=== PATIENT | female | born 1960 | race Caucasian/White ===

== ENCOUNTER → 2018-07-14 14:03 | Outpatient (CLI) | payer OTHER, SELFPAY ==
--- NOTE | 2018-07-14 | DI.RAD.S_ITS ---
PROCEDURE: XR LUMBAR SPINE MIN 4V INDICATIONS: STENOSIS OF LUMBAR REGION TECHNIQUE: 5 views of the lumbar spine acquired. COMPARISON: 07/08/2018. FINDINGS: Bones: 5 nonrib-bearing vertebrae are present. There are small riblets on the T12 vertebral body. There is anterolisthesis of L3-4 (4 mm) which minimally progressed since on flexion views where it measures 7 mm. Finding is stable on extension views. L4-5 pedicle screw fixation with intervertebral body disc spacer. Hardware is radiographically intact. No vertebral body compression fractures. No suspicious bony lesions. Soft tissues: Overlying bowel gas pattern is normal. No suspicious soft tissue calcifications. Barium within the colon. Flexion/extension: Anterolisthesis of L3-4 measuring 4 mm which progresses to measure 7 mm on flexion views. IMPRESSION: 1. Anterolisthesis of L3-4 measures 4 mm in neutral position and 7 mm on flexion views. It is stable on extension views. 2. Theodore and screw fixation of L4-5. Dictated by: Jose Harden M.D. on 07/14/2018 at 15:57 Approved by: Jose Harden M.D. on 07/14/2018 at 16:02
== END ==
PROVIDERS: PCP Family Medicine; Visit Provider Orthopaedic Surgery Orthopaedic Surgery of the Spine
DX: M48.061 Spinal stenosis, lumbar region without neurogenic claudication (principal); M43.16 Spondylolisthesis, lumbar region; Z98.1 Arthrodesis status
CPT/HCPCS: 72110

== ENCOUNTER → 2018-11-17 09:59 | Outpatient (CLI) | payer OTHER, SELFPAY ==
[2018-11-17 10:49] LABS: Hematocrit 43.3 % (36-46); Hemoglobin 14.7 g/dL (12.0-16.0); Mean Corpuscular HGB Conc 33.9 % (30-36); Mean Corpuscular Hemoglobin 32.4 PG (26-34); Mean Corpuscular Volume 95.5 fL (80-100); Platelet Count 280 X10^3/uL (150-400); Red Blood Cell Count 4.54 X10^6/uL (4.0-5.2); Red Cell Distribution Width 13.2 % (11.6-14.8); White Blood Cell Count 4.3 X10^3/uL (4.5-11.0)
[2018-11-17 11:31] LABS: Blood Urea Nitrogen 15 mg/dL (7-17); Calcium 10.3 mg/dL (8.4-10.2); Carbon Dioxide 30 mmol/L (22-32); Chloride 97 mmol/L (98-107); Estimated Glomerular Filt Rate > 60.0 mL/min (>60); Glucose 107 mg/dL (70-100); HEMOLYSIS < 15 (0-50); Potassium 4.3 mmol/L (3.4-5.1); Sodium 139 mmol/L (137-145)
== END ==
PROVIDERS: PCP Family Medicine; Visit Provider Orthopaedic Surgery Orthopaedic Surgery of the Spine
DX: Z01.818 Encounter for other preprocedural examination (principal)
CPT/HCPCS: 36415; 80048; 85027; 93005

== ENCOUNTER 2018-12-08 06:15 | Inpatient (IN) | payer OTHER, SELFPAY ==
[2018-11-23 08:51] VITALS: BMI 20.9
[2018-12-08] VITALS (16 sets, daily range): BP systolic 104–141; BP diastolic 52–72; PULSE 62–91; RESP 8–18; TEMP 36.3–37.2; O2SAT 97–100; BMI 20.9
--- NOTE | 2018-12-08 | DI.RAD.S_ITS ---
PROCEDURE: XR LUMBAR SPINE 2-3V INDICATIONS: L3-4 TLIF TECHNIQUE: Tube views of the lumbar spine were acquired. COMPARISON: [facility], [facility], XR LUMBAR SPINE MIN 4V, 07/14/2018, 13:47. [facility], [facility], L-SPINE 2-3 VIEWS, 10/26/2017, 17:10. FINDINGS: Bones: Prior spine surgery had involved two-level fusion at L4-5 with an interbody disc cage prosthesis at L4-5. The current study shows extension of posterior fusion by transverse pedicle screws and vertical fixation rods to include now also the L3-4 level. A and L3-4 interbody disc cage prosthesis is placed, positioning appears normal. Soft tissues: Overlying bowel gas pattern is normal. No suspicious soft tissue calcifications. IMPRESSION: Normal postoperative alignment with extension of posterior fusion procedure from the past, now to extend to include L3-L5. Interbody disc prosthesis, cage type, appear to be normal in position at L3-4 and L4-5. Dictated by: Simone Harris M.D. on 12/08/2018 at 11:23 Approved by: Simone Harris M.D. on 12/08/2018 at 11:25
[2018-12-08] MEDS: LACTATED RINGERS 1,000 ML 42 ML IV ×2 (07:03→10:05)
[2018-12-08] MEDS: ACETAMINOPHEN 325 MG TABLET 975 MG PO (07:08)
[2018-12-08] MEDS: GABAPENTIN 300 MG CAPSULE PO ×2 (07:15→19:30)
--- NOTE | 2018-12-08 07:39 | PM.PREOP ---
Pre-operative Note Interval Note History & Physical reviewed/Exam performed by Physician: Yes Changes to H&P: No
[2018-12-08] MEDS: CEFAZOLIN 2 GM/100 ML FROZ.PIGGY IV (07:54)
--- NOTE | 2018-12-08 08:19 | SUR.OPER ---
Prone on spine table, head in foam head support, padded chest and pelvic supports, gel pad at knees, lower legs supported by pillows; nipples, genitalia and toes free of pressure, arms secured on foam padded arm boards at <90 degrees abduction. Tape over blanket at thigh secured to table.
[2018-12-08] MEDS: BUPIVACAINE 0.25% W/ EPI VIAL 30 ML INJ (08:26)
[2018-12-08] MEDS: BUPIVACAINE LIPOSOME 266 MG/20 ML VIAL INJ (08:28)
--- NOTE | 2018-12-08 10:47 | P.OP_ITS ---
Operative Date/Time/Diagnoses Date of procedure: 12/08/18 Time of procedure: 08:01 Pre-op diagnosis: 1. L3-4 spondylolisthesis 2. Hx of L4-5 fusion with pseudoarthrosis 3. L3-4, L4-5 spinal stenosis Post-op diagnosis: same Procedure & Clinicians Procedure: 1. L3-4 Postero-lateral and posterior interbody fusion 2. L3-4 interbody cage placement. 3. L3-4 decompressive laminectomy with bilateral facetecomies 4. L3-4 L4-5 Posterior segmental instrumentation 5. L4-5 posterior non-segmental hardware removal 6. L4-5 exploration of fusion with right hemilaminectomy 7. L4-5 posterolateral fusion 8. Hamden of bone marrow from iliac crest 9. Utilization of microsurgical technique and operating microscope Same procedure as scheduled: Yes Indications: Patient has been having chronic back pain and worsening lumbar radiculopathy. She had a history of lumbar fusion at L4-5 and was doing well for over 1 year. She has been having progressively worsening back pain and radiating pain down her legs. Patient failed multiple conservative management with worsening pain weakness and numbness in her lower extremity. Patient has been having difficulty performing activity of daily living. After discussing risks benefits of treatment options, patient elected proceed with surgery. Surgeon: Brooke Kwong Prefabricated Houses Trimmer: Mile Becker Click Yes if Unassisted: No Anesthesia Type: General Operative Notes Closure Type: primary Specimen(s): none sent Implants & Drains: Globus revolve screws, Rise cages Applied: catheter Estimated Blood Loss (mL): 50 Blood products transfused: none Procedure in detail: Patient was seen in the preoperative area. Risks and benefits of the surgery was discussed with the patient. Informed consent was obtained from the patient and placed in the chart. Surgical site was marked. Patient was taken to the operative room. General anesthesia was administered. Prophylactic antibiotic was given to the patient less than 30 min before the incision was made. Patient was placed into a prone position on the Deion table. Patient's back was then prepped and draped in the sterile fashion. Time- out was performed at this time. Using patient's previous scar incision was made over the L3-4 L4-5 interval on the right side. Fascia was incised in line with skin incision. Patient's previously placed hardware over the L4-5 level was identified by dissecting down to the level the hardware using a Bovie and a Jackson. The locking caps which was removed using globus screwdriver. The locking adrian was then removed from the tulips of the pedicle screws using a Thuy. The pedicle screws were then removed using the screwdriver. The screws were found to have good purchase. The Globus and MARS retractors was then placed into the wound and docked onto the L3 lamina using C-arm guidance. Using microsurgical technique and operating microscope a laminectomy facetectomy was performed by removing the L3 lamina and the L3-4 facet. The disc space at L3-4 level was identified next. And a total diskectomy was performed at L3-4 level. The endplates were decorticated using a rasp and shaver. The total diskectomy and decortication was performed at L3-4 level in order to to accomplish a L3-4 fusion. The local bone from the laminectomy and facetectomy was saved for local bone grafting. After the total diskectomy and decortication was completed, Globus viacell bone graft material was combined with local bone that was harvested earlier. At this time, a separate skin is incision was made over the iliac crest. A Jamshidi needle was inserted into the iliac crest through a separate skin incision. 5 cc of bone marrow aspiration was obtained through the separate skin incision using a Jamshidi needle from the iliac crest. The bone marrow aspiration was combined with local bone and the Bio4 and DBM bone grafting material. The bone grafting material was placed into the L3-4 interbody space along with a expandable cage. The cage was expanded to its maximum height using the torque limiting screwdriver. At this time a mirror image incision was made on the left side. The fascia was incised in line with the skin incision. Patient's previously placed hardware on the left side was then removed in the same fashion as it was on the right side. The hardware was also found to have good purchase. The fusion mass on the left side was exposed by performing a hemilaminectomy at L4-5 level. The hemilaminectomy was performed using the Kerrison rongeur to undercut the lamina as well removing additional epidural scar tissue for purpose of decompressing the epidural space. The fusion mass was explored and was found have visible motion indicating pseudoarthrosis. Globus MARS retractor was inserted and docked onto the L3-4 L4-5 posterolateral gutter. Using the power drill, posterior-lateral decortication was performed at L3-4 L4-5 level until bleeding cortical bone was identified. The remaining bone grafting material was placed into the L3-4 L4-5 posterior lateral gutter he order to accomplish posterolateral fusion at the L3-4 L4-5 level. Using the double C-arm technique, pedicle screws were placed into the L3, L4 and L5 pedicles bilaterally. This was done by placing the Jamshidi needle into the pedicles, then placing the guidewires over the Jamshidi needle, and finally placing the cannulated screws over the guidewires bilaterally. After the pedicle screws were placed, 2 titanium rods was locked into the heads of the pedicle screws using locking caps and torque limiting screwdriver. After all the hardware was placed, and confirmed with AP and lateral C-arm imaging, the wound was then irrigated with sterile normal saline and packed with Ray-Thierry gauze for 3 min to accomplish hemostasis. After the gauze was removed the deep fascia was closed with #1 Vicryl suture. The subcutaneous layer was closed with 2-0 Vicryl. The skin was closed with skin domingo. Patient tolerated the procedure well. There were no complications. Complications: none Condition: stable Disposition: PACU Plan for aftercare: Admit to inpatient hospital
[2018-12-08] MEDS: HYDROMORPHONE 2 MG INJ 0.5 MG IV ×2 (11:02→11:16)
[2018-12-08] MEDS: LORazepam 2 MG/ML SYRINGE 0.25 MG IV ×2 (11:08→11:19)
--- NOTE | 2018-12-08 12:03 | SUR.PHASEI ---
Patient transferred to IP room 209 via bed. \vital signs stable on arrival. o2 2 liters 100% sat dressing dry and intact. Pain level 7/10. denied any nausea. bedside report given to addy hdez rn.
[2018-12-08] MEDS: HYDROMORPHONE 2 MG TABLET PO ×3 (13:53→20:45)
[2018-12-08] MEDS: SODIUM CHLORIDE 0.9% 1,000 ML 100 ML IV ×2 (13:53→20:49)
--- NOTE | 2018-12-08 15:01 | PC.NURSE ---
Pt to floor around 1155. She is groggy but easily awakens . Pt is sensitive to iv narcotics and has sensitivities to morphine, oxycodone and percocet. She had orders for both of these, they have been d/cd and Dilaudid ordered for discomfort. Dressing to lower back is cdi. Pt is on NS at 100cc/hr. She is visiting with her . PT states that when given morphine or oxycodone she has severe emesis. Denies numbness or tingling to extremities. Dilaudid po helpful for discomfort, ice pack given and pt resting.
--- NOTE | 2018-12-08 15:20 | PT.IPTN ---
Current Diagnoses Spondylolisthesis, lumbar region (12/08/18) Other spondylosis with radiculopathy, lumbar region (12/08/18) Spinal stenosis, lumbar region without neurogenic claudication (12/08/18) Arthrodesis status (12/08/18) Surgery Performed Operation Date: 12/08/18 07:45 Actual Procedures p L3-4 TLIF/ L4-5 HWR Exploration of fusion, repeat laminectomy, reinsertion of hardware, L3-4, L4-5 PSF(Not Applicable) - Brooke Kwong MD Physical Therapy Treatment Note M3 PT-IP Subjective Start: 12/08/18 15:40 Freq: NEEDED Status: Active Protocol: Document 12/08/18 15:20 RCC (Rec: 12/08/18 15:42 RCC [id number]) Subjective Physical Therapy Visit Type Type Cancellation Notes checked on pt to initiate PT, pt difficult to arouse, lethargic- did not arouse to name. Will attempt PT at a later time today or tomorrow, pt is not appropriate at this time for PT evaluation.
[2018-12-08] MEDS: CEFAZOLIN 1 GM/50 ML FROZ.PIGGY IV ×2 (16:52→23:55)
[2018-12-08] MEDS: hydrOXYzine pamoate 25 MG CAPSULE PO (19:30)
[2018-12-08] MEDS: ACETAMINOPHEN 325 MG TABLET 650 MG PO (19:30)
[2018-12-08] MEDS: DOCUSATE 100 MG CAPSULE PO (19:30)
[2018-12-09 00:10] VITALS: BP 106/59; PULSE 89; RESP 16; TEMP 36.8; O2SAT 97
[2018-12-09 03:39] VITALS: BP 111/49; PULSE 89; RESP 16; TEMP 36.6; O2SAT 100
[2018-12-09] MEDS: HYDROMORPHONE 2 MG TABLET PO ×5 (03:41→22:02)
[2018-12-09 06:13] LABS: Hematocrit 38.2 % (36-46)
[2018-12-09] MEDS: ACETAMINOPHEN 325 MG TABLET 650 MG PO (07:29)
[2018-12-09] MEDS: DOCUSATE 100 MG CAPSULE PO ×2 (07:30→22:02)
[2018-12-09] MEDS: GABAPENTIN 300 MG CAPSULE PO ×2 (07:31→13:53)
[2018-12-09 08:00] VITALS: BP 127/65; PULSE 82; RESP 16; TEMP 37.1; O2SAT 100
--- NOTE | 2018-12-09 08:23 | PM.PNPO.1 ---
Subjective Date Patient Seen: 12/09/18 Time Patient Seen: 08:23 Interval history: Hospital day 2, postop day 1 following L3-4 laminectomy, cage, posterior fusion; L4-5 HWR, right hemilaminectomy, posterior fusion; L3-4, L4-5 posterior instrumented fusion by Dr. Kwong. Patient complaining of low back pain. States her right leg symptoms were present preoperatively have improved. She is using Dilaudid 2 mg for pain. She has not had any physical therapy yet. Palacio catheter in place. Exam Vital Signs (past 8 hours): - 12/09/18 03:39 Temperature 97.8 F Pulse Rate 89 Respiratory Rate 16 Blood Pressure 111/49 L Pulse Oximetry 100 Oxygen Delivery Method Nasal Cannula Oxygen Flow Rate 0 Narrative Exam Narrative: Alert, oriented no acute distress resting in bed. Back. Dressing is dry without drainage or inflammation. Legs. No calf pain or swelling. Pulses symmetrical. Good sensation to touch to lower legs symmetrical. Good strength on foot dorsiflexion plantar flexion. Objective Labs Result Diagrams: 12/09/18 05:48 Labs: Laboratory Results - last 24 hr 12/09/18 05:48 Hgb 13.0 Hct 38.2 Assessment & Plan Post-op Postoperative Procedures Operation Date: 12/08/18 07:45 Actual Procedures Side Surgeon p L3-4 TLIF/ L4-5 HWR Exploration of fusion, repeat laminectomy, reinsertion of hardware, L3-4, L4-5 PSF Not Applicable Brooke Kwong MD Plan: Patient will begin working with physical therapy today. Anticipate DC Palacio catheter when she is more active. Will observe for further improvement today. Anticipate discharge to home tomorrow if she is cleared by PT. Quality VTE Deep Vein Thrombosis/Pulmonary Embolism Present on Admission: No
--- NOTE | 2018-12-09 08:26 | P.PN_ITS ---
Subjective Date Patient Seen: 12/09/18 Time Patient Seen: 08:23 Interval history: Hospital day 2, postop day 1 following L3-4 laminectomy, cage , posterior fusion; L4-5 HWR, right hemilaminectomy, posterior fusion; L3-4, L4- 5 posterior instrumented fusion by Dr. Kwong. Patient complaining of low back pain. States her right leg symptoms were present preoperatively have improved. She is using Dilaudid 2 mg for pain. She has not had any physical therapy yet. Palacio catheter in place. Exam Vital Signs (past 8 hours): - 12/09/18 03:39 Temperature 97.8 F Pulse Rate 89 Respiratory Rate 16 Blood Pressure 111/49 L Pulse Oximetry 100 Oxygen Delivery Method Nasal Cannula Oxygen Flow Rate 0 Narrative Exam Narrative: Alert, oriented no acute distress resting in bed. Back. Dressing is dry without drainage or inflammation. Legs. No calf pain or swelling. Pulses symmetrical. Good sensation to touch to lower legs symmetrical. Good strength on foot dorsiflexion plantar flexion. Objective Labs Result Diagrams: 12/09/18 05:48 Labs: Laboratory Results - last 24 hr 12/09/18 05:48 Hgb 13.0 Hct 38.2 Assessment & Plan Post-op Postoperative Procedures Operation Date: 12/08/18 07:45 Actual Procedures Side Surgeon p L3-4 TLIF/ L4-5 HWR Exploration of fusion, repeat laminectomy, reinsertion of hardware, L3-4, L4-5 PSF Not Applicable Brooke Kwong MD Plan: Patient will begin working with physical therapy today. Anticipate DC Palacio catheter when she is more active. Will observe for further improvement today. Anticipate discharge to home tomorrow if she is cleared by PT. Quality VTE Deep Vein Thrombosis/Pulmonary Embolism Present on Admission: No
--- NOTE | 2018-12-09 10:28 | PT.IIE ---
Current Diagnoses Spondylolisthesis, lumbar region (12/08/18) Other spondylosis with radiculopathy, lumbar region (12/08/18) Spinal stenosis, lumbar region without neurogenic claudication (12/08/18) Arthrodesis status (12/08/18) Surgery Performed Operation Date: 12/08/18 07:45 Actual Procedures p L3-4 TLIF/ L4-5 HWR Exploration of fusion, repeat laminectomy, reinsertion of hardware, L3-4, L4-5 PSF(Not Applicable) - Brooke Kwong MD Surgical History (Last Updated 11/23/18 @ 09:02 by Kallie Castillo RN) History of bunionectomy of both great toes (Acute) History of lumbar spinal fusion (Acute 10/26/17) Hx of laminectomy (Acute) Hx of shoulder surgery (Acute) S/P bilateral foot surgery (Acute) Medical History (Last Updated 11/23/18 @ 09:30 by Kallie Castillo RN) Asthma (Acute) Fecal incontinence alternating with constipation (Acute) Former smoker (Acute) H/O: hysterectomy (Acute) Migraines (Acute) Numbness and tingling (Acute) Pneumonia (Acute) Physical Therapy Inpatient Evaluation/Re-Eval M1 PT/OT-IP Prior Functional Status Start: 12/08/18 15:40 Freq: NEEDED Status: Active Protocol: Document 12/09/18 10:28 AB (Rec: 12/09/18 13:17 AB [id number]) Medical Review Prior Functional Status Medical History Reviewed Yes Communication able to make needs known Mobility and Gait pt stated that she is independent with all mobilities and ambulation without AD Social History Household Members spouse Living Arrangements House Number of Floors (Floors) Two Floors Number of Stairs To Enter/Railing? has no steps to enter 13 steps with R rail to get to bedroom level has 2 steps without rails to get to he sunken living room Home Environment Standard Height Toilet Tub/Shower Home Equipment Front Wheel Walker Raised Toilet Seat w/Armrests Tub Transfer Punchboard Stuffer Held Shower Long Handled [employer] Additional Social History Comment pt stated that she works from home friend will bring pt a SPC pt also has a craftmatic bed ( adjustable head and foot of bed) M2 PT-IP Current Condition Start: 12/08/18 15:40 Freq: NEEDED Status: Active Protocol: Document 12/09/18 10:28 AB (Rec: 12/09/18 13:17 AB [id number]) Physical Therapy Current Condition Current Condition Evaluation Date 12/09/18 Treatment Diagnosis s/p L3-4, L4-5 fusion, lami; difficulty in walking Onset Date 12/08/18 Precautions Lumbar Precautions Log Roll No Twisting Limit Bending Lifting Restriction of 10 lbs Gait Belt above Incisional Area M3 PT-IP Subjective Start: 12/08/18 15:40 Freq: NEEDED Status: Active Protocol: Document 12/09/18 10:28 AB (Rec: 12/09/18 13:17 AB [id number]) Subjective Physical Therapy Visit Type Type Initial Evaluation Visit Start Time 10:28 Visit Stop Time 11:07 Total Visit Minutes 39 Number of SOLID STATE TESTER Visits 0 Physical Therapy Visit Comments Patient Comments pt agreeable to get up Therapy Pain Assessment Pain When Pain Assessed At Rest Pain Present Pain Present Pain Reported Location Back Intensity 5 Scale Used Numeric (1 - 10) M4 PT-IP Mobility and Gait Start: 12/08/18 15:40 Freq: NEEDED Status: Active Protocol: Document 12/09/18 10:28 AB (Rec: 12/09/18 13:17 AB [id number]) PT-Bed Mobility Assessment Rolling Type of Rolling Log Rolling Level of Assist Standby Assistance Supine to Sit Supine to Sit Standby Assistance Scooting Scooting to Edge of Bed Standby Assistance PT-Transfer Assessment Sit to and From Stand Sit to and from Stand Contact Guard Assistance Use of Upper Extremities Equipment Transfer Assistive Device Gait Belt Front Wheeled Walker Orthotic/Prosthetic Devices or Brace: No Transfers Transfer Destination Chair Transfer Technique Stand Step Pivot Transfer Ability Level of Assist Contact Guard Assistance Comments Mobility Comments pt educated on sit to stand. completed sit <>stand x 3 reps CGA and cues for technqiue and safety. spouse present during PT session. Gait Assessment Gait Gait Assistance Required: Contact Guard Assist Distance (Feet) 40 Able to Maintain Weight Bearing Status Yes During Gait Assistive Devices Assistive Device Front Wheeled Walker Orthotic/Prosthetic Devices or Brace: No Gait Deviations General Gait Pattern Decreased Stride Length Decreased Feet Clearance Factors Limiting Gait Function Factors Limiting Gait Function Decreased Activity Tolerance Decreased Strength Limited Range of Motion Pain Poor Balance Poor Safety Awareness PT-Balance Assessment Sitting Balance and Reactions Static Sitting Balance Ability Good Dynamic Sitting Balance Ability Good Standing Balance and Reactions Static Standing Balance Ability Fair Dynamic Standing Balance Ability Fair Device Used FWW M5 PT-IP Objective Assessments Start: 12/08/18 15:40 Freq: NEEDED Status: Active Protocol: Document 12/09/18 10:28 AB (Rec: 12/09/18 13:17 AB [id number]) Orientation Orientation/Cognition Level of Alertness Alert Orientation Name Age Birthday Month Date Year Day of Week Place Situation Safety Awareness Understands Safety Issues Memory Description No Deficits Noted Gross Range of Motion Lower Extremity ROM Assessment Within Functional Limits Strength Lower Extremity Strength Assessment Bilaterally Impaired Comments Strength Comments LLE: 4/5 RLE: 4-/5 Coordination Assessment Gross Coordination Gross Coordination WNL Sensation Assessment Sensation Gross Sensation WNL Muscle Tone Muscle Tone WNL Yes M6 PT-IP Treatment Start: 12/08/18 15:40 Freq: NEEDED Status: Active Protocol: Document 12/09/18 10:28 AB (Rec: 12/09/18 13:17 AB [id number]) Physical Therapy Treatment Education Education Provided Precautions Post-Op Packet Safety M7 PT-IP Assessment and Plan Start: 12/08/18 15:40 Freq: NEEDED Status: Active Protocol: Document 12/09/18 10:28 AB (Rec: 12/09/18 13:17 AB [id number]) PT Summary Assessment and Plan Potential Rehabilitation Potential Good Status of Condition at Evaluation Stable Summary Impairments Pain ROM Strength Balance Coordination Sensation Bed Mobility Transfers Gait Activity Tolerance Assessment Summary pt requiring CGA with mobility and plans to go home with spouse to assist. caregiver training will be conducted when appropriate and stairclimbing training will be completed prior to d/c. Goals Bed Mobility Goal Independent Transfer Goal Independent Front Wheeled Walker Gait Goal Independent Front Wheel Walker Gait Distance 150 Other Goals up/down 13 steps R rail ascending SBA up/down 2 steps SPC/FWW SBA Days to Meet Goals 3 Frequency of Treatment Frequency Of Treatment Twice a Day Treatment Plan Physical Therapy Treatment Plan Bed Mobility Training Transfer Training Gait Training Therapeutic Exercise Balance Retraining Post Op Education Discharge Planning Hot or Cold Pack Neuromuscular Re-ed Coordination Retraining Manual Therapy Other Recommendations and Next Treatment ambulation, caregiver training Focus , stair climbing Recommendations To Nursing Amount of Assist Needed 1 Person Assist Discharge Recommendations PT Discharge Recommendations Home with Assistance
[2018-12-09] MEDS: hydrOXYzine pamoate 25 MG CAPSULE PO ×3 (11:46→22:03)
[2018-12-09 13:00] VITALS: BP 126/64; PULSE 76; RESP 16; TEMP 36.7; O2SAT 100
--- NOTE | 2018-12-09 14:48 | OT.IP.EVAL ---
Current Diagnoses Spondylolisthesis, lumbar region (12/08/18) Other spondylosis with radiculopathy, lumbar region (12/08/18) Spinal stenosis, lumbar region without neurogenic claudication (12/08/18) Arthrodesis status (12/08/18) Surgery Performed Operation Date: 12/08/18 07:45 Actual Procedures p L3-4 TLIF/ L4-5 HWR Exploration of fusion, repeat laminectomy, reinsertion of hardware, L3-4, L4-5 PSF(Not Applicable) - Brooke Kwong MD Past Medical History (Last Updated 11/23/18 @ 09:30 by Kallie Castillo RN) Asthma (Acute) Fecal incontinence alternating with constipation (Acute) Former smoker (Acute) H/O: hysterectomy (Acute) Migraines (Acute) Numbness and tingling (Acute) Pneumonia (Acute) Surgical History (Last Updated 11/23/18 @ 09:02 by Kallie Castillo RN) History of bunionectomy of both great toes (Acute) History of lumbar spinal fusion (Acute 10/26/17) Hx of laminectomy (Acute) Hx of shoulder surgery (Acute) S/P bilateral foot surgery (Acute) Occupational Therapy Inpatient Evaluation/Re-Eval M1 PT/OT-IP Prior Functional Status Start: 12/08/18 15:40 Freq: NEEDED Status: Active Protocol: Document 12/09/18 14:48 PJM (Rec: 12/09/18 16:22 PJM [email or web address]) Medical Review Prior Functional Status Medical History Reviewed Yes Diet/Fluid Consistency Regular Communication WNL Mobility and Gait Pt stated that she is independent with all mobilities and ambulation without AD Activities of Daily Living and IADL's Pt stated she was independent with all self are. assists with heavier IADLS due to pt's LBP. Pt works from home on laptop 30-35 hrs per week with flexible schedule. Prior Functional Level (Other details) works flexible schedule and can assist pt PRN with self care, IADLS. Social History Household Members spouse Living Arrangements House Number of Floors (Floors) Two Floors Number of Stairs To Enter/Railing? 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 Pt has a craftmatic bed ( adjustable head and foot of bed). M2 OT-IP Current Condition Start: 12/09/18 15:59 Freq: Status: Active Protocol: Document 12/09/18 14:48 PJM (Rec: 12/09/18 16:22 PJM [email or web address]) Occupational Therapy Current Condition Current Condition Evaluation Date 12/09/18 Treatment Diagnosis decr'd self care,functional mobility s/p L4-5 revision fusion, L3-4 fusion Post Operative Precautions Lumbar Precautions Log Roll No Twisting Limit Bending Lifting Restriction of 10 lbs Gait Belt above Incisional Area M3 OT- IP Subjective and Pain Start: 12/09/18 15:59 Freq: Status: Active Protocol: Document 12/09/18 14:48 PJM (Rec: 12/09/18 16:22 PJM [email or web address]) OT- Subjective Occupational Therapy Visit Type Type Initial Evaluation Visit Start Time 14:12 Visit Stop Time 14:48 Total Visit Minutes 36 Occupational Therapy Visit Comments Patient Comments I want to get this over with, so I can rest. I hope I get more sleep tonight. 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 OT Pain Assessment Pain When Pain Assessed After Treatment Pain Present Pain Present Pain Reported Location Back Intensity 7 Scale Used Numeric (1 - 10) Description Aching Acute Spasm Pain Behaviors Facial Grimacing Guarding Management Techniques Apply Cold Distraction Re-positioning Timing of Activity with Medications M4 OT- IP ADL's Start: 12/09/18 15:59 Freq: Status: Active Protocol: Document 12/09/18 14:48 PJM (Rec: 12/09/18 16:22 PJM [id number]) OT [id number]-[id number] General Evaluation Self-Feeding Ability Independent OT ADL-Grooming General Evaluation Areas Needing Assistance Combing/Brushing Hair Face Washing Comments OT Grooming Comments stand by assist after set up in chair OT ADL-Oral Care Comments Oral Care Comments pt declined this session OT ADL-Dressing General Eval Lower Body Dressing Ability Maximum Assistance Areas Needing Assistance Socks Comments OT Dressing Comments Pt declines sock aid, states she does not usually wear socks at home. Wears slip on slippers. Has extruder operator multiple, declines to don underwear today. She is familiar with lumbar precautions from previous surgery 10/2017. OT ADL-Toileting General Evaluation Toileting Ability Maximum Assistance Areas Needing Assistance Empty Catheter or Colostomy Comments OT Toileting Comments strickland still in place OT ADL-Bathing Devices Bathing Equipment Hand Held Shower Sprayer Tub Transfer Bench Comments OT Bathing Comments Pt would like to shower tomorrow prior to d/c. She has tub bench and hand held shower hose she used after her last back surgery. She declines long bath sponge stating will assist PRN. M5 OT- IP IADL's Start: 12/09/18 15:59 Freq: Status: Active Protocol: Document 12/09/18 14:48 PJM (Rec: 12/09/18 16:22 PJ [email or web address]) OT-Instrumental Activities of Daily Living Deficits IADL Deficits Identified Deficits Home Safety Awareness Awareness of Need for Assistance at Home Good Awareness Ability to Problem Solve Emergency Able to Problem Solve Situations Medication Management Medication Management No Deficits Identified Money Management Money Management No Deficits Identified Meal Preparation Meal Preparation Caregiver Provides Assist Meal Preparation Comments to assist until pt able Supervisor Cemetery Workers Supervisor Cemetery Workers Caregiver Provides Assist Supervisor Cemetery Workers Comments to assist until pt able Driving Driving Caregiver Provides Assist Driving Comments to assist until pt able M6 OT- IP Functional Cognition Start: 12/09/18 15:59 Freq: Status: Active Protocol: Document 12/09/18 14:48 PJM (Rec: 12/09/18 16:22 PJ [email or web address]) Cognitive Factors Limiting Selfcare Function Cognitive Ability Level of Alertness Alert Patient Orientation Name Age Birthday Month Date Year Day of Week Place Situation Attention Span Ability Capable of Focused Attention Capable of Sustained Attention Ability to Follow Commands Able to Follow One Step Commands Able to Follow Multi-Step Commands Memory Description No Deficits Noted Safety Awareness No Deficits Noted Problem Solving Ability No deficits Noted Executive Function Ability No Deficits Noted Cognitive Comments Cognitive Assessment Comments Pt slightly drowsy but functional cognition appears WNL. OT- Vision and Hearing OT- Hearing Assessment OT- Hearing Assessment WFL OT- Vision Assessment Visual Acuity WFL Glasses All The Time M7 OT- IP Mobility and Balance Start: 12/09/18 15:59 Freq: Status: Active Protocol: Document 12/09/18 14:48 PJM (Rec: 12/09/18 16:22 PJM [email or web address]) OT- Bed Mobility Assessment Rolling Type of Rolling Roll to Right Level of Assistance Standby Assistance 1 Person Assistance Supine to Sit Supine to Sit Assist Standby Assistance 1 Person Assistance Scooting Scooting to Edge of Bed Standby Assistance OT-Transfer Assessment Sit to and From Stand Sit to and from Stand Contact Guard Assistance Transfers Transfer Ability Standby Assistance 1 Person Assistance Technique Transfer Destination Chair Transfer Technique Stand Step Pivot Devices Transfer Assistive Devices Large Based Quad Cane OT- Gait Assessment Gait Gait Assistance Required: Standby Assistance Distance (Feet) 2 Assistive Devices Assistive Device Front Wheeled Walker Comments Gait Ability Comments to chair, see P.T. notes for further details OT- Balance Assessment Sitting Balance and Reactions Static Sitting Balance Ability Good Dynamic Sitting Balance Ability Good Standing Balance and Reactions Static Standing Balance Ability Good M8 OT- IP Objective Assessments Start: 12/09/18 15:59 Freq: Status: Active Protocol: Document 12/09/18 14:48 PJM (Rec: 12/09/18 16:22 PJM [email or web address]) OT Gross Range of Motion Upper Extremity Range of Motion Assessment Within Functional Limits OT Strength Upper Extremity Strength Assessment Within Functional Limits Hand Financial Sales Associate Strength Hand Dominance Right OT- Coordination Assessment Comments Coordination Comments BUE WNL OT-Muscle Tone Assessment Muscle Tone WNL Yes OT Sensation Assessment Comments Summary Comments Pt denies deficits in BUES Edema Edema Absent M9 OT- IP Assessment and Plan Start: 12/09/18 15:59 Freq: Status: Active Protocol: Document 12/09/18 14:48 PJM (Rec: 12/09/18 16:22 PJM [email or web address]) OT Summary Assessment and Plan Potential Rehabilitation Potential Excellent Analytic Complexity at Evaluation Low Summary OT Impairments Pain Functional Mobility Grooming Dressing Toileting Bathing Toilet Transfers Shower Transfers Assessment Summary Low complexity OT assessemnt completed today and pt mobilized out of bed to chair. Pt familiar with lumbar spine precautions and adapted ADL techniques from previous lumbar surgery 10/2017. Pt pleasant and cooperative with good effort and participation. Pt currently has performance deficits in all functional mobility,transfers and activity tolerance due to high pain level and in standing grooming, lower body dressing, bathing and toileting. Pt will benefit from 1-2 additional OT visits to address the goals below. Anticipate pt will be able to d/c home with assist from attentive when medically stable and clears P.T. Note pt has 13 stairs to get up to bedroom. Goals Grooming Goal Independent Dressing Goal Minimal Assistance Toileting Goal Independent Bathing Goal Minimal Assistance Toilet Transfer Goal Independent Shower Transfer Goal Standby Assistance Tub/Shower Combination Tub Transfer Bench Patient/Caregiver Education Goal Demonstrate Post-Op Precautions Demonstrate Energy Conservation and Pacing Caregiver Independent Assisting Patient OT-Other Goals Note pt prefers to have assist with socks and showering. Days to Meet Goals 3 Frequency of Treatment Frequency Of Treatment Once a Day Treatment Plan OT Treatment Plan ADL Training Functional Mobility Patient/Family Education Discharge Planning Discharge Recommendations OT Discharge Recommendations Home with Assistance Home Equipment Needs pt has all necessary equipt
--- NOTE | 2018-12-09 15:22 | PT.IPTN ---
Current Diagnoses Spondylolisthesis, lumbar region (12/08/18) Other spondylosis with radiculopathy, lumbar region (12/08/18) Spinal stenosis, lumbar region without neurogenic claudication (12/08/18) Arthrodesis status (12/08/18) Surgery Performed Operation Date: 12/08/18 07:45 Actual Procedures p L3-4 TLIF/ L4-5 HWR Exploration of fusion, repeat laminectomy, reinsertion of hardware, L3-4, L4-5 PSF(Not Applicable) - Brooke Kwong MD Physical Therapy Treatment Note M2 PT-IP Current Condition Start: 12/08/18 15:40 Freq: NEEDED Status: Active Protocol: Document 12/09/18 10:28 AB (Rec: 12/09/18 13:17 AB [id number]) Physical Therapy Current Condition Current Condition Evaluation Date 12/09/18 Treatment Diagnosis s/p L3-4, L4-5 fusion, lami; difficulty in walking Onset Date 12/08/18 Precautions Lumbar Precautions Log Roll No Twisting Limit Bending Lifting Restriction of 10 lbs Gait Belt above Incisional Area M3 PT-IP Subjective Start: 12/08/18 15:40 Freq: NEEDED Status: Active Protocol: Document 12/09/18 15:19 GGD (Rec: 12/09/18 15:22 GGD [email or web address]) Subjective Physical Therapy Visit Type Type Treatment Note Visit Start Time 15:00 Visit Stop Time 15:15 Total Visit Minutes 15 Number of WATER SOFTENER INSTALLER Visits 1 Physical Therapy Visit Comments Patient Comments Pt willing to walk. Therapy Pain Assessment Pain When Pain Assessed At Rest Pain Present Pain Present Pain Reported M4 PT-IP Mobility and Gait Start: 12/08/18 15:40 Freq: NEEDED Status: Active Protocol: Document 12/09/18 15:19 GGD (Rec: 12/09/18 15:22 GGD [email or web address]) PT-Bed Mobility Assessment Rolling Type of Rolling Log Rolling Level of Assist Standby Assistance Sit to Supine Sit to Supine Standby Assistance Scooting Scooting to Edge of Bed Standby Assistance PT-Transfer Assessment Sit to and From Stand Sit to and from Stand Contact Guard Assistance Use of Upper Extremities Equipment Transfer Assistive Device Gait Belt Front Wheeled Walker Orthotic/Prosthetic Devices or Brace: No Transfers Transfer Destination Bed Transfer Technique Stand Step Pivot Comments Mobility Comments min cues for log roll and sit to stand techinque. Gait Assessment Gait Gait Assistance Required: Contact Guard Assist Distance (Feet) 80 Assistive Devices Assistive Device Front Wheeled Walker Orthotic/Prosthetic Devices or Brace: No Gait Deviations General Gait Pattern Decreased Stride Length Decreased Feet Clearance Factors Limiting Gait Function Factors Limiting Gait Function Decreased Activity Tolerance Decreased Strength Limited Range of Motion Pain Poor Balance Poor Safety Awareness M5 PT-IP Objective Assessments Start: 12/08/18 15:40 Freq: NEEDED Status: Active Protocol: Document 12/09/18 10:28 AB (Rec: 12/09/18 13:17 AB [id number]) Orientation Orientation/Cognition Level of Alertness Alert Orientation Name Age Birthday Month Date Year Day of Week Place Situation Safety Awareness Understands Safety Issues Memory Description No Deficits Noted Gross Range of Motion Lower Extremity ROM Assessment Within Functional Limits Strength Lower Extremity Strength Assessment Bilaterally Impaired Comments Strength Comments LLE: 4/5 RLE: 4-/5 Coordination Assessment Gross Coordination Gross Coordination WNL Sensation Assessment Sensation Gross Sensation WNL Muscle Tone Muscle Tone WNL Yes M6 PT-IP Treatment Start: 12/08/18 15:40 Freq: NEEDED Status: Active Protocol: Document 12/09/18 10:28 AB (Rec: 12/09/18 13:17 AB [id number]) Physical Therapy Treatment Education Education Provided Precautions Post-Op Packet Safety M7 PT-IP Assessment and Plan Start: 12/08/18 15:40 Freq: NEEDED Status: Active Protocol: Document 12/09/18 15:19 GGD (Rec: 12/09/18 15:22 GGD [email or web address]) PT Summary Assessment and Plan Summary Assessment Summary Pt improving slowly with mobility. She did have decrease in pain control, but was able to progress gait. She need min cues for log roll technique. Frequency of Treatment Frequency Of Treatment Twice a Day Treatment Plan Physical Therapy Treatment Plan Bed Mobility Training Transfer Training Gait Training Therapeutic Exercise Balance Retraining Post Op Education Discharge Planning Hot or Cold Pack Neuromuscular Re-ed Coordination Retraining Manual Therapy Other Recommendations and Next Treatment ambulation, stair climbing Focus Recommendations To Nursing Amount of Assist Needed 1 Person Assist Discharge Recommendations PT Discharge Recommendations Home with Assistance
--- NOTE | 2018-12-09 15:43 | PC.NURSE ---
Patient tolerating P.T. well today, pain management with vistaril, gabapentin, and po dilaudid as ordered (see MAR). Dressing remains intact. + CMS Palacio in place and intact, draining clear pale urine. call light withinr each.
[2018-12-09 16:00] VITALS: BP 123/81; PULSE 85; RESP 15; TEMP 37.1; O2SAT 100
[2018-12-09 20:00] VITALS: BP 103/55; PULSE 86; RESP 16; TEMP 37; O2SAT 97
[2018-12-09] MEDS: SENNOSIDES 8.6 MG TABLET 17.2 MG PO (22:02)
[2018-12-10 01:37] VITALS: BP 118/51; PULSE 88; RESP 16; TEMP 37.3; O2SAT 95
[2018-12-10] MEDS: HYDROMORPHONE 2 MG TABLET PO ×2 (04:41→09:06)
[2018-12-10 05:13] VITALS: BP 95/67; PULSE 83; RESP 16; TEMP 37; O2SAT 96
--- NOTE | 2018-12-10 05:24 | PC.NURSE ---
Pt A and O x 4, VSS, hypotensive at baseline. Rates pain 7/10, able to sleep, good relief from 25 mg Visteril po and 2 mg Dilaudid po. LS clear, S1, S2. Urine output qs, clear yellow. +BTs.
[2018-12-10 08:00] VITALS: BP 121/73; PULSE 82; RESP 16; TEMP 36.6; O2SAT 98
[2018-12-10] MEDS: hydrOXYzine pamoate 25 MG CAPSULE PO (09:06)
[2018-12-10] MEDS: DOCUSATE 100 MG CAPSULE PO (09:06)
--- NOTE | 2018-12-10 09:25 | PT.IPTN ---
Current Diagnoses Spondylolisthesis, lumbar region (12/08/18) Other spondylosis with radiculopathy, lumbar region (12/08/18) Spinal stenosis, lumbar region without neurogenic claudication (12/08/18) Arthrodesis status (12/08/18) Surgery Performed Operation Date: 12/08/18 07:45 Actual Procedures p L3-4 TLIF/ L4-5 HWR Exploration of fusion, repeat laminectomy, reinsertion of hardware, L3-4, L4-5 PSF(Not Applicable) - Brooke Kwong MD Physical Therapy Treatment Note M2 PT-IP Current Condition Start: 12/08/18 15:40 Freq: NEEDED Status: Active Protocol: Document 12/09/18 10:28 AB (Rec: 12/09/18 13:17 AB [id number]) Physical Therapy Current Condition Current Condition Evaluation Date 12/09/18 Treatment Diagnosis s/p L3-4, L4-5 fusion, lami; difficulty in walking Onset Date 12/08/18 Precautions Lumbar Precautions Log Roll No Twisting Limit Bending Lifting Restriction of 10 lbs Gait Belt above Incisional Area M3 PT-IP Subjective Start: 12/08/18 15:40 Freq: NEEDED Status: Active Protocol: Document 12/10/18 09:25 GGD (Rec: 12/10/18 10:41 GGD [email or web address]) Subjective Physical Therapy Visit Type Type Treatment Note Visit Start Time 09:00 Visit Stop Time 09:25 Total Visit Minutes 25 Number of HALL WORKER Visits 2 Physical Therapy Visit Comments Patient Comments Pt hopes to go home today. Therapy Pain Assessment Pain When Pain Assessed At Rest Pain Present Pain Present Pain Reported Location Back Intensity 5 Scale Used Numeric (1 - 10) M4 PT-IP Mobility and Gait Start: 12/08/18 15:40 Freq: NEEDED Status: Active Protocol: Document 12/10/18 09:25 GGD (Rec: 12/10/18 10:41 GGD [email or web address]) PT-Bed Mobility Assessment Sit to Supine Sit to Supine Standby Assistance Scooting Scooting to Edge of Bed Standby Assistance PT-Transfer Assessment Sit to and From Stand Sit to and from Stand Contact Guard Assistance Use of Upper Extremities Equipment Transfer Assistive Device Gait Belt Front Wheeled Walker Orthotic/Prosthetic Devices or Brace: No Transfers Transfer Destination Bed Transfer Technique Stand Step Pivot Comments Mobility Comments min cues for log roll and sit to stand techinque. Gait Assessment Gait Gait Assistance Required: Standby Assistance Distance (Feet) 100 Assistive Devices Assistive Device Front Wheeled Walker Orthotic/Prosthetic Devices or Brace: No Gait Deviations General Gait Pattern Decreased Stride Length Decreased Feet Clearance Factors Limiting Gait Function Factors Limiting Gait Function Decreased Activity Tolerance Decreased Strength Limited Range of Motion Pain Poor Balance Poor Safety Awareness Stair Climbing Assessment Evaluation Level of Assist On Stairs Standby Assistance Devices Stair Climbing Assistive Devices Right Railing Technique/Endurance Stair Climbing Direction Ascend and Descend Stair Climbing Technique Step to Step Number of Steps Climbed 3 Query Text: Stair Climbing Set # Repetitions (reps) 2 Comments Stair Climbing Comments Pt used both hands on right rail to ascend and left rail to descend. M5 PT-IP Objective Assessments Start: 12/08/18 15:40 Freq: NEEDED Status: Active Protocol: Document 12/09/18 10:28 AB (Rec: 12/09/18 13:17 AB [id number]) Orientation Orientation/Cognition Level of Alertness Alert Orientation Name Age Birthday Month Date Year Day of Week Place Situation Safety Awareness Understands Safety Issues Memory Description No Deficits Noted Gross Range of Motion Lower Extremity ROM Assessment Within Functional Limits Strength Lower Extremity Strength Assessment Bilaterally Impaired Comments Strength Comments LLE: 4/5 RLE: 4-/5 Coordination Assessment Gross Coordination Gross Coordination WNL Sensation Assessment Sensation Gross Sensation WNL Muscle Tone Muscle Tone WNL Yes M6 PT-IP Treatment Start: 12/08/18 15:40 Freq: NEEDED Status: Active Protocol: Document 12/10/18 09:25 GGD (Rec: 12/10/18 10:41 GGD [email or web address]) Physical Therapy Treatment Education Education Provided Precautions M7 PT-IP Assessment and Plan Start: 12/08/18 15:40 Freq: NEEDED Status: Active Protocol: Document 12/10/18 09:25 GGD (Rec: 12/10/18 10:41 GGD [email or web address]) PT Summary Assessment and Plan Summary Assessment Summary Pt improving with mobility. She was safe with gait and stair mobility. She SBA for log roll. Pt safe for home D/C when medically stable. Frequency of Treatment Frequency Of Treatment Twice a Day Treatment Plan Other Recommendations and Next Treatment ambulation, stair climbing Focus Recommendations To Nursing Amount of Assist Needed 1 Person Assist Discharge Recommendations PT Discharge Recommendations Home with Assistance
--- NOTE | 2018-12-10 09:28 | PM.DS.1 ---
History of Present Illness Date Patient Seen: 12/10/18 Time Patient Seen: 09:28 Chief complaint: [id number] Narrative: Hospital day 3, postop day 2 following L3-4 laminectomy, cage, posterior fusion; L4-5 HWR, right hemilaminectomy, posterior fusion; L3-4, L4-5 posterior instrumented fusion by Dr. Kwong. Patient states she is doing much better. She was up several times yesterday in chair and walking in the room with PT. PT feels he is stable for home. Pain control with Dilaudid and Vistaril. Palacio catheter DC this morning and patient voided well. Discharge Providers Date of admission: 12/08/18 06:15 Primary care physician: Butch Matos MD Consults: 12/08/18 12:27 Consult to Occupational Therapy Evaluate & Treat Comment: Physician Instructions: Evaluate and treat Consult to Physical Therapy Evaluate & Treat Comment: Physician Instructions: Evaluate and Treat Discharge provider: Theron Clayton PA-C Discharge Date: 12/10/18 Summary Discharge Diagnosis: Status post L3-4 laminectomy, cage, posterior fusion; L4-5 HWR, right hemilaminectomy, posterior fusion; L3-4, L4-5 posterior instrumented fusion Hospital Course: Patient brought to hospital on 12/08/2018 for above-noted surgery. She remained stable postoperatively. Gradually progressed well with physical therapy. Patient ready for discharge home on postop day 2. Status at Discharge Cognitive/behavioral status at discharge: Alert, oriented no acute distress resting in bed. Functional status at discharge: uses cane/walker Overall status at discharge: patient is progressing back to baseline Time Spent with Patient Less than 30 minutes Exam Vital Signs (past 8 hours): - 12/10/18 01:37 12/10/18 05:13 12/10/18 08:00 Temperature 99.2 F 98.6 F 97.9 F Pulse Rate 88 83 82 Respiratory Rate 16 16 16 Blood Pressure 118/51 L 95/67 121/73 Pulse Oximetry 95 96 98 Oxygen Delivery Method Room Air Oxygen Flow Rate 0 Narrative Exam Narrative: Back. Dressing to the lumbar area is dry without drainage or inflammation. Legs. No calf pain or swelling. Pulses symmetrical. Good sensation to touch to lower legs. Objective Labs Result Diagrams: 12/09/18 05:48 Discharge Plan Discharge Plan Patient Disposition: Home Discharge comment: Discharge home after cleared by PT. Patient to avoid excessive lumbar bending and twisting. No lifting or carrying more than 5-10 lb. Did not sit for more than 1 hr at a time. Discharge Med Rec/Prescriptions Prescriptions: New acetaminophen 325 mg Tablet 650 mg PO Q6HR PRN (Reason: Pain, Mild (1-3)) Qty: 30 RF: 0 hydromorphone 2 mg Tablet 2 mg PO Q4HR PRN (Reason: Pain, Severe (7-10)) Qty: 30 RF: 0 hydroxyzine pamoate 25 mg Capsule 25 mg PO Q4HR PRN (Reason: Nausea And Vomiting) Qty: 30 RF: 0 Continue gabapentin [Neurontin] 300 MG capsule 300 mg PO TID PRN (Reason: nerve pain) Qty: 0 RF: 0 rizatriptan [Maxalt-FURNACE MECHANIC HELPER] 10 MG tablet,disintegrating 10 mg PO PRN PRN (Reason: Migraines) Qty: 0 RF: 0 cyclobenzaprine 10 mg Tablet 0.5 - 1 tab PO TID PRN (Reason: muscle spasms) RF: 0 ibuprofen 200 mg Tablet 4 tab PO DAILY PRN (Reason: pain) RF: 0 Discontinued tramadol 50 mg Tablet 1 - 2 tab PO Q6H PRN (Reason: pain) RF: 0 acetaminophen [Tylenol Extra Strength] 500 mg Tablet 1,500 mg PO DAILY PRN (Reason: pain) RF: 0 Provider Discharge Instructions Diet: Diet as Tolerated Activity: Avoid excessive lumbar bending and twisting. No lifting or carrying more than 5-10 lb. Ambulate as tolerated. Avoid prolonged sitting. Skin/Wound/Dressing Care Report to your healthcare provider any signs of infection, such as:: chills, fever, night sweats, increased pain, unusual drainage and unusual redness Visit Report/Discharge Packet Instructions: DI for Transforaminal Lumbar Interbody Fusion Discharge Data Primary Care Provider: Butch Matos Attending Provider: Brooke Kwong Admit Date/Time: 12/08/18 06:15 Quality VTE Deep Vein Thrombosis/Pulmonary Embolism Present on Admission: No
--- NOTE | 2018-12-10 09:56 | CM.DANOTE ---
DCP Assessment/Discharge Home Patient is a 58 year old female who was admitted on 12/08/18 for Orthopedic Surgery. Pt has [employer] for insurance and her PCP is Dr. Butch Matos. EMR was reviewed. Per Ortho PA, pt medically stable and tolerated surgery well and per PT/OT recommending safe d/c home with spouse assist. Per RN, pt has been independent with supportive spouse bedside and no concerns at this time. Plan: Patient to d/c home today via spouse POV and no SW needs at this time. DEVYN Zamudio
--- NOTE | 2018-12-10 10:32 | PC.NURSE ---
Addendum entered by Arabella Disla R.N. 12/10/18 11:22: Reviewed written and verbal discharge instructions with pt and her . All questions answered. Reviewed all but not limited to S/S of infection, pain management, preventing constipation, post op lumbar precautions, diet, mobility. Pt left unit via wheelchair at 1121 in no distress with RN coordinator. at side to drive pt home. They will fill pt's prescriptions at outside facility. Original Note: Day Shift-Pain controlled with prn Dilaudid and vistaril. Pt A&OX4 able to make needs known using call light. Denies nausea. Tolerating diet. Had shower with OT this AM. Lower back dressing changed to coversite dressing per verbal order by Theron Reynaga,PAC. @ incisions well approximated with domingo intact. No S/S of infection. Pt tolerated well. Stated having hypersensitivity to lower end of skin surrounding incisions. Pt's at bedside, states has all belongings. Plan for discharge home. Pt states having next 3 post op appointments already made. No voiced concerns.
--- NOTE | 2018-12-10 11:05 | OT.IP.TRT ---
Current Diagnoses Spondylolisthesis, lumbar region (12/08/18) Other spondylosis with radiculopathy, lumbar region (12/08/18) Spinal stenosis, lumbar region without neurogenic claudication (12/08/18) Arthrodesis status (12/08/18) Surgery Performed Operation Date: 12/08/18 07:45 Actual Procedures p L3-4 TLIF/ L4-5 HWR Exploration of fusion, repeat laminectomy, reinsertion of hardware, L3-4, L4-5 PSF(Not Applicable) - Brooke Kwong MD Occupational Therapy Treatment Note M2 OT-IP Current Condition Start: 12/09/18 15:59 Freq: Status: Active Protocol: Document 12/09/18 14:48 PJM (Rec: 12/09/18 16:22 PJM [id number]) Occupational Therapy Current Condition Current Condition Evaluation Date 12/09/18 Treatment Diagnosis decr'd self care,functional mobility s/p L4-5 revision fusion, L3-4 fusion Post Operative Precautions Lumbar Precautions Log Roll No Twisting Limit Bending Lifting Restriction of 10 lbs Gait Belt above Incisional Area M3 OT- IP Subjective and Pain Start: 12/09/18 15:59 Freq: Status: Active Protocol: Document 12/10/18 10:53 [facility] (Rec: 12/10/18 11:05 [facility] [id number]) OT- Subjective Occupational Therapy Visit Type Type Treatment Note Visit Start Time 09:30 Visit Stop Time 09:50 Total Visit Minutes 20 Occupational Therapy Visit Comments Patient Comments Pt wanting to shower prior to going home. OT Pain Assessment Pain When Pain Assessed At Rest Pain Present Pain Present Denied Pain M4 OT- IP ADL's Start: 12/09/18 15:59 Freq: Status: Active Protocol: Document 12/10/18 10:53 [facility] (Rec: 12/10/18 11:05 [facility] [id number]) OT ADL-Grooming General Evaluation Grooming Ability Standby Assistance Areas Needing Assistance Retrieving/Set-up of Grooming Items OT ADL-Dressing General Eval Upper Body Dressing Ability Independent Lower Body Dressing Ability Standby Assistance Areas Needing Assistance Retrieving/Set-up of Clothing Assistive Devices Dressing Assistive Devices Lpn Rn Comments OT Dressing Comments Pt able to use front tender to assist to get pants over left foot and to help pull on slip on shoes. OT ADL-Bathing Bathing Type Bathing Type Shower General Evaluation Bathing Ability Moderate Assistance Areas Needing Assistance Wash/Dry Upper Body Wash/Dry Lower Extremities Comments OT Bathing Comments Pt needing assist for back and LE, SBA while standing to do pericare needs. Pt stataes to be there to assist at home. M5 OT- IP IADL's Start: 12/09/18 15:59 Freq: Status: Active Protocol: Document 12/09/18 14:48 [facility]JM (Rec: 12/09/18 16:22 [facility] [id number]) OT-Instrumental Activities of Daily Living Deficits IADL Deficits Identified Deficits Home Safety Awareness Awareness of Need for Assistance at Home Good Awareness Ability to Problem Solve Emergency Able to Problem Solve Situations Medication Management Medication Management No Deficits Identified Money Management Money Management No Deficits Identified Meal Preparation Meal Preparation Caregiver Provides Assist Meal Preparation Comments to assist until pt able Bucket Chucker Bucket Chucker Caregiver Provides Assist Bucket Chucker Comments to assist until pt able Driving Driving Caregiver Provides Assist Driving Comments to assist until pt able M6 OT- IP Functional Cognition Start: 12/09/18 15:59 Freq: Status: Active Protocol: Document 12/10/18 10:53 [facility] (Rec: 12/10/18 11:05 [facility] [id number]) Cognitive Factors Limiting Selfcare Function Cognitive Ability Level of Alertness Alert Patient Orientation Name Age Birthday Month Date Year Day of Week Place Situation Attention Span Ability Capable of Focused Attention Capable of Sustained Attention Ability to Follow Commands Able to Follow One Step Commands Able to Follow Multi-Step Commands Memory Description No Deficits Noted Safety Awareness No Deficits Noted Problem Solving Ability No deficits Noted Executive Function Ability No Deficits Noted Cognitive Comments Cognitive Assessment Comments Pt doing well and able to incorporate back precautions for all Adl needs with good safety. OT- Vision and Hearing OT- Hearing Assessment OT- Hearing Assessment WFL OT- Vision Assessment Visual Acuity WFL Glasses All The Time M7 OT- IP Mobility and Balance Start: 12/09/18 15:59 Freq: Status: Active Protocol: Document 12/10/18 10:53 [facility] (Rec: 12/10/18 11:05 [facility] [email or web address]) OT- Bed Mobility Assessment Rolling Type of Rolling Roll to Right Level of Assistance Independent Supine to Sit Supine to Sit Assist Independent Scooting Scooting to Edge of Bed Independent OT-Transfer Assessment Sit to and From Stand Sit to and from Stand Standby Assistance Transfers Transfer Ability Standby Assistance Technique Transfer Destination Chair Transfer Technique Stand Step Pivot Devices Transfer Assistive Devices Front Wheeled Walker M8 OT- IP Objective Assessments Start: 12/09/18 15:59 Freq: Status: Active Protocol: Document 12/09/18 14:48 PJM (Rec: 12/09/18 16:22 [facility]JM [id number]) OT Gross Range of Motion Upper Extremity Range of Motion Assessment Within Functional Limits OT Strength Upper Extremity Strength Assessment Within Functional Limits Hand Shipping Packer Strength Hand Dominance Right OT- Coordination Assessment Comments Coordination Comments BUE WNL OT-Muscle Tone Assessment Muscle Tone WNL Yes OT Sensation Assessment Comments Summary Comments Pt denies deficits in BUES Edema Edema Absent M9 OT- IP Assessment and Plan Start: 12/09/18 15:59 Freq: Status: Active Protocol: Document 12/10/18 10:53 [facility] (Rec: 12/10/18 11:05 [facility] [email or web address]) OT Summary Assessment and Plan Potential Rehabilitation Potential Excellent Analytic Complexity at Evaluation Low Summary OT Impairments Pain Functional Mobility Grooming Dressing Toileting Bathing Toilet Transfers Shower Transfers Progress Towards Goals Progressing Toward Goals Assessment Summary Pt doing well and to have supportive at home to help. Pt going home today. Goals Days to Meet Goals 1 Frequency of Treatment Frequency Of Treatment Once a Day Treatment Plan OT Treatment Plan ADL Training Functional Mobility Patient/Family Education Discharge Planning Discharge Recommendations OT Discharge Recommendations Home with Assistance
== END 2018-12-10 11:21 | disposition home or self-care (01) | DRG 454 ==
PROVIDERS: Admitting Provider Orthopaedic Surgery Orthopaedic Surgery of the Spine; PCP Family Medicine; Visit Provider Orthopaedic Surgery Orthopaedic Surgery of the Spine
PROC: 0SG00AJ Fusion of Lumbar Vertebral Joint with Interbody Fusion Device, Posterior Approach, Anterior Column, Open Approach (ICD-10-PCS; principal; 2018-12-08 07:45)
DX: M43.16 Spondylolisthesis, lumbar region (principal); M96.0 Pseudarthrosis after fusion or arthrodesis; M96.1 Postlaminectomy syndrome, not elsewhere classified; M48.061 Spinal stenosis, lumbar region without neurogenic claudication; Z87.891 Personal history of nicotine dependence
CPT/HCPCS: 36415; 72100; 76000; 85014; 85018; 97116; 97161; 97165; 97530; 97535; C1776; C9290; J0330; J0690; J1100; J1170; J2060; J2250; J2405; J2704; J3010

== ENCOUNTER 2018-12-15 18:55 | Emergency (ER) | payer OTHER, SELFPAY ==
[2018-12-08 12:39] VITALS: BMI 20.9
[2018-12-15 19:00] VITALS: PULSE 79; RESP 16; O2SAT 100; BMI 21.7
--- NOTE | 2018-12-15 19:59 | ED.EXTPRO ---
HPI - Extremity Problem <Natacha Oakley PA-C - Last Filed: 12/15/18 21:59> General Chief complaint: Extremity Problem,Nontraumatic Stated complaint: had back surg 1 wk ago, both wrists bruised, rt sw Time Seen by Provider: 12/15/18 19:59 Source: patient Mode of arrival: ambulatory Limitations: no limitations History of Present Illness HPI Narrative: this 58-year-old female had back surgery and was discharged 5 days ago. She states that it the day after discharge, she began to notice some bruising on both of her upper extremities, near the right elbow and also right wrist, which is the most painful site. She states that both are tender with use, more on the right. She has been wearing a wrist immobilizer splint on the right, which helps the pain, however she has noticed more bruising and more puffiness today and states she was told to come in if this occurred. She spoke with her surgeon and does not know of any positioning that could affect this or of any IV starts on this side ( she remembers IV being on the left side). She states that she was using a walker after surgery and now a cane (in her right hand as she is right handed), but does not think this exacerbates her symptoms. She is on the keyboard frequently according to her . She is not taking any aspirin or NSAIDs currently she says. She denies any swelling further up in arm, nor pain elsewhere. She denies any chest pain or dyspnea. She states her mobility is improved since her back surgery. No history of blood clots Related Data Home Medications Medication Instructions Recorded Confirmed gabapentin [Neurontin] 300 mg PO TID PRN #0 10/14/17 12/14/18 rizatriptan [Maxalt-REGISTERED LAND SURVEYOR] 10 mg PO PRN PRN #0 10/14/17 12/14/18 cyclobenzaprine 0.5 - 1 tab PO TID PRN 11/23/18 12/14/18 ibuprofen 4 tab PO DAILY PRN 11/23/18 12/14/18 Previous Rx's Medication Instructions Recorded acetaminophen 650 mg PO Q6HR PRN #30 tab 12/10/18 hydromorphone 2 mg PO Q4HR PRN #30 tab 12/10/18 hydroxyzine pamoate 25 mg PO Q4HR PRN #30 cap 12/10/18 Allergies Allergy/AdvReac Type Severity Reaction Status Date / Time hydromorphone [From Dilaudid] AdvReac Severe IV only - Verified 12/15/18 19:00 Severe bradycardia oxycodone [From Percocet] AdvReac Severe DOES NOT Verified 12/15/18 19:00 TOLERATE GENERIC morphine AdvReac Intermediate Nausea Verified 12/15/18 19:00 PAIN MEDICATION SENSITIVITY AdvReac Severe Severe Uncoded 12/15/18 19:00 Bradycardia, does not tolerate generics Review of Systems <Natacha Oakley PA-C - Last Filed: 12/15/18 21:59> Review of Systems ROS Unobtainable: All systems reviewed & are unremarkable except as noted in HPI and below Exam <Natacha Oakley PA-C - Last Filed: 12/15/18 21:59> Narrative Exam Narrative: GENERAL APPEARANCE: Patient sitting comfortably, in no distress. LUNGS: Clear to auscultation bilaterally. HEART: Rate and rhythm regular without murmur, normal S1 and S2, no S3 or S4. EXTREMITIES: hands are warm and pink, wrist pulses are intact bilaterally, no calf tenderness DERMATOLOGIC: patchy yellow ecchymoses over the right antecubital fossa, right anterior medial wrist, and left anterior wrist. Bruises appear same age. She also has a tender, slightly enlarged vein within the bruising on the right wrist. No erythema or warmth to touch. Minimal edema which is circumscribed in the bruised area MUSCULOSKELETAL: She has slightly reduced left wrist extension secondary to tenderness, otherwise full range of motion. 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/5 with full range of motion of the fingers on the right, nontender Initial Vital Signs Initial Vital Signs: Vital Signs Pulse Rate 79 12/15/18 19:00 Respiratory Rate 16 12/15/18 19:00 Pulse Oximetry 100 12/15/18 19:00 <Edwar Braun DO - Last Filed: 12/16/18 01:35> Initial Vital Signs Initial Vital Signs: Vital Signs Pulse Rate 79 12/15/18 19:00 Respiratory Rate 16 12/15/18 19:00 Pulse Oximetry 100 12/15/18 19:00 Course <Natacha Oakley PA-C - Last Filed: 12/15/18 21:59> Additional Information: discussed with patient source of her bruising and pain is not clear though she was in a prone position for her surgery. We discussed that minor positioning /compression injuries are not unusual. She appears to have a mild superficial phlebitis and some ecchymoses, as well as tendinitis which we discussed could have been exacerbated by her using the walker and now her cane in the right hand though she does not think so. She is also apparently on the keyboard frequently. Advised continuing her wrist immobilizer splint and warm packs and follow up with her PCP in a few days. Advised return if any acute changes such as swelling more proximal in the arm, in which case I explained we would want to evaluate her for DVT, any chest pain, dyspnea, etc and she is agreeable. Vital Signs - 8 hr 12/15/18 19:00 12/15/18 20:46 Pulse Rate 79 71 Respiratory Rate 16 17 Blood Pressure [Left Arm] 102/61 Pulse Oximetry 100 95 <Edwar Braun DO - Last Filed: 12/16/18 01:35> Vital Signs - 8 hr 12/15/18 19:00 12/15/18 20:46 Pulse Rate 79 71 Respiratory Rate 16 17 Blood Pressure [Left Arm] 102/61 Pulse Oximetry 100 95 Discharge Plan Departure Patient Disposition: Home Clinical Impression: Tendonitis, Phlebitis Discharge Date/Time: 12/15/18 20:52 Interventions: ED Discharge Assessment Last Done: 12/15/18 20:52 Instructions: DI for Tendinitis Activity Restrictions/Additional Instructions: I agree that you likely have some tendon inflammation /tendinitis. It is most likely that this was caused by positioning while you are at the hospital since you were on your stomach for surgery. This is not unusual. Your bruising may be related to this as well even though the bruises took few days to show up. It is possible that this was exacerbated by using the walker and even your cane a little bit just due to the positioning of your wrist. You appear to have a slightly inflamed, tender vein on the right side around this bruised area as well, called phlebitis. There is no indication of a deeper vein inflammation at this point, however as we talked about if you have acutely worsening swelling in your arm or new symptoms such as shortness of breath or chest pain, you should return to the emergency room immediately. it looks like there could have been a puncture wound around that vein though it is difficult to assess fully due to your difficulty with extending the wrist. Your main IV was placed on your left side as you remember, but other attempted IV starting locations may not have been documented. Please apply a warm pack to the sore vein when you take your splint off. Please minimize any pressure on the wrist or repetitive motion such as keyboard use. This is likely to take a few days for the bruising and vein soreness to start to improve. The tendon soreness will take longer (likely weeks or more depending upon how much you rest your wrists) so please be sure to schedule follow-up for recheck with your PCP in the next few days to determine whether any other treatment such as PT may be needed. Prescriptions: No Action gabapentin [Neurontin] 300 MG capsule 300 mg PO TID PRN (Reason: nerve pain) Qty: 0 RF: 0 rizatriptan [Maxalt-REGISTERED LAND SURVEYOR] 10 MG tablet,disintegrating 10 mg PO PRN PRN (Reason: Migraines) Qty: 0 RF: 0 cyclobenzaprine 10 mg Tablet 0.5 - 1 tab PO TID PRN (Reason: muscle spasms) RF: 0 ibuprofen 200 mg Tablet 4 tab PO DAILY PRN (Reason: pain) RF: 0 acetaminophen 325 mg Tablet 650 mg PO Q6HR PRN (Reason: Pain, Mild (1-3)) Qty: 30 RF: 0 hydromorphone 2 mg Tablet 2 mg PO Q4HR PRN (Reason: Pain, Severe (7-10)) Qty: 30 RF: 0 hydroxyzine pamoate 25 mg Capsule 25 mg PO Q4HR PRN (Reason: Nausea And Vomiting) Qty: 30 RF: 0 Referrals: Brooke Kwong MD [Physician] - Butch Matos MD [Primary Care Provider] - <Edwar Braun DO - Last Filed: 12/16/18 01:35> Cosign ED Attending Whitature Attestation: I was immediately available in the department for consultation. Documentation has been reviewed. I agree with assessment and plan.
[2018-12-15 20:46] VITALS: BP 102/61; PULSE 71; RESP 17; O2SAT 95
== END 2018-12-15 20:52 | disposition home or self-care (01) ==
PROVIDERS: Emergency Provider Internal Medicine; PCP Family Medicine
DX: M77.9 Enthesopathy, unspecified (principal); I80.9 Phlebitis and thrombophlebitis of unspecified site
CPT/HCPCS: 99282

== ENCOUNTER → 2019-01-06 09:50 | Outpatient (CLI) | payer OTHER, SELFPAY ==
[2018-12-08 12:39] VITALS: BMI 20.9
--- NOTE | 2019-01-06 | DI.MG.S_ITS ---
BILATERAL DIGITAL SCREENING MAMMOGRAM 3D/2D WITH CAD: 01/06/2019 CLINICAL: Routine screening. Comparison is made to exams dated: 12/04/2017 mammogram, 11/11/2016 mammogram, and 11/05/2015 mammogram - [facility]. The tissue of both breasts is extremely dense, which lowers the sensitivity of mammography. Current study was also evaluated with a Computer Aided Detection (CAD) system. There is architectural distortion in the right breast anterior depth lateral region seen on the craniocaudal view only. No other significant masses, calcifications, or other findings are seen in either breast. IMPRESSION: INCOMPLETE: NEEDS ADDITIONAL IMAGING EVALUATION The architectural distortion in the right breast is indeterminate. Further evaluation with diagnostic mammogram and possible ultrasound is recommended. This exam was interpreted at Station ID: [id number]. NOTE: For mammograms, a report in lay terms will be sent to the patient. Approximately 15% of breast malignancies will not be visualized mammographically. In the management of a palpable breast mass, a negative mammogram must not discourage biopsy of a clinically suspicious lesion. Electronically Signed By: Eva boone/:01/07/2019 15:43:15 letter sent: Additional Imaging Needed ACR BI-RADS Category 0: Incomplete [id number]
== END ==
PROVIDERS: PCP Family Medicine; Visit Provider Family Medicine
DX: Z12.31 Encounter for screening mammogram for malignant neoplasm of breast (principal)
CPT/HCPCS: 77063; 77067

== ENCOUNTER → 2019-01-12 13:31 | Outpatient (CLI) | payer OTHER, SELFPAY ==
[2018-12-08 12:39] VITALS: BMI 20.9
--- NOTE | 2019-01-12 | DI.MG.S_ITS ---
UNILATERAL RIGHT DIGITAL DIAGNOSTIC MAMMOGRAM 3D/2D WITH ADDITIONAL VIEWS: 01/12/2019 CLINICAL: Additional evaluation requested from prior study. Comparison is made to exams dated: 01/06/2019 mammogram, 12/04/2017 mammogram, and 11/11/2016 mammogram - [facility]. The tissue of right breast is extremely dense, which lowers the sensitivity of mammography. Previously described architectural distortion in the right breast anterior depth lateral region seen on the craniocaudal view only on comparison screening mammogram of 01/06/2019 resolves with additional views and likely represented superimposition of benign anatomic tissues. IMPRESSION: INCOMPLETE: NEEDS ADDITIONAL IMAGING EVALUATION Previously described architectural distortion in the right breast anterior depth lateral region seen on the craniocaudal view only on comparison screening mammogram resolves with additional views and likely represented superimposition of benign anatomic tissues. A targeted ultrasound is recommended and will be performed immediately following this exam. This exam was interpreted at Station ID: [id number]. NOTE: For mammograms, a report in lay terms will be sent to the patient. Approximately 15% of breast malignancies will not be visualized mammographically. In the management of a palpable breast mass, a negative mammogram must not discourage biopsy of a clinically suspicious lesion. Electronically Signed By: Navid Jimenez M.D. ecl/:01/12/2019 14:49:12 letter sent: Additional Imaging Needed ACR BI-RADS Category 0: Incomplete [id number]
--- NOTE | 2019-01-12 13:35 | DI.US.S_ITS ---
LIMITED ULTRASOUND OF RIGHT BREAST: 01/12/2019 CLINICAL: Patient returns today to evaluate possible architectural distortion in the right breast. Comparison is made to exams dated: 01/12/2019 mammogram, 01/06/2019 mammogram, 12/04/2017 mammogram, 11/11/2016 mammogram, 11/05/2015 mammogram, and 11/02/2014 mammogram - [facility]. Real-time and Doppler ultrasound of the right breast outer aspect were performed. Brown scale images of the real-time examination were reviewed. No underlying breast mass or abnormality is identified. There is no ultrasound correlate for the previously noted architectural distortion in the right breast anterior depth lateral region seen on the craniocaudal view only on comparison screening mammogram of 01/06/2019, which also resolved on additional diagnostic mammogram views performed earlier today. IMPRESSION: NEGATIVE There is no sonographic evidence of malignancy in the imaged portions of the lateral right breast. Return to annual screening mammography schedule is recommended. The patient is advised to monitor her breasts and to return sooner for re-evaluation should she feel anything grow or change. This exam was interpreted at Station ID: [id number]. Electronically Signed By: Navid Jimenez M.D. ecl/:01/12/2019 14:51:24 letter sent: Normal Exam Ultrasound BI-RADS: 1 Negative
== END ==
PROVIDERS: PCP Family Medicine; Visit Provider Nurse Practitioner Family
DX: R92.8 Other abnormal and inconclusive findings on diagnostic imaging of breast (principal)
CPT/HCPCS: 76642; 77065; G0279

== ENCOUNTER → 2019-03-29 09:54 | Outpatient (CLI) | payer OTHER, SELFPAY ==
[2018-12-08 12:39] VITALS: BMI 20.9
[2019-03-29 10:50] LABS: Hematocrit 41.8 % (36-46); Hemoglobin 14.1 g/dL (12.0-16.0); Mean Corpuscular HGB Conc 33.8 % (30-36); Mean Corpuscular Hemoglobin 31.8 PG (26-34); Mean Corpuscular Volume 93.9 fL (80-100); Platelet Count 278 X10^3/uL (150-400); Red Blood Cell Count 4.45 X10^6/uL (4.0-5.2); Red Cell Distribution Width 14.2 % (11.6-14.8); White Blood Cell Count 3.1 X10^3/uL (4.5-11.0)
[2019-03-29 10:55] LABS: Alanine Aminotransferase 18 IU/L (9-52); Albumin 4.5 g/dL (3.5-5.0); Albumin Globulin Ratio 1.5 (1.0-2.8); Alkaline Phosphatase 65 U/L (38-126); Aspartate Aminotransferase 25 IU/L (14-36); BUN Creatinine Ratio 17.1 (6-22); Bilirubin Total 1.1 mg/dL (0.2-1.3); Blood Urea Nitrogen 12 mg/dL (7-17); Calcium 9.9 mg/dL (8.4-10.2); Carbon Dioxide 31 mmol/L (22-32); Chloride 101 mmol/L (98-107); Cholesterol 236 mg/dL (140-199); Estimated Glomerular Filt Rate > 60.0 mL/min (>60); Glucose 100 mg/dL (70-100); HEMOLYSIS < 15 (0-50); Magnesium 2.1 mg/dL (1.6-2.3); Potassium 4.2 mmol/L (3.4-5.1); Sodium 140 mmol/L (137-145); Total Protein 7.5 g/dL (6.3-8.2); Triglycerides 63 mg/dL (35-150)
[2019-03-29 11:11] LABS: HDL Cholesterol 122 mg/dL (40-60); LDL Cholesterol Calculated 101 mg/dL (<100)
[2019-03-29 12:01] LABS: Thyroid Stimulating Hormone 2.11 uIU/mL (0.47-4.68)
[2019-03-30 14:13] LABS: Lymphocytes Percent Auto 38.7 % (25-40); Monocytes Percent Auto 9.2 % (3-14)
[2019-03-30 14:14] LABS: Add Manual Diff / Slide Review NO; Basophils Percent Auto 1.4 % (0-2); Eosinophils Percent Auto 4.4 % (2-4); Neutrophils Percent Auto 46.3 % (50-75)
[2019-03-30 15:02] LABS: Basophils Absolute Auto 0 /uL (0-100); Eosinophils Absolute Auto 100 /uL (0-450); Lymphocytes Absolute Auto 1300 /uL (1100-4500); Monocytes Absolute Auto 300 /uL (0-900); Neutrophils Absolute Auto 1500 /uL (1500-7000)
== END ==
PROVIDERS: Nurse Practitioner Family; PCP Family Medicine; Visit Provider Internal Medicine Cardiovascular Disease
DX: R00.2 Palpitations (principal); I10 Essential (primary) hypertension; E83.52 Hypercalcemia
CPT/HCPCS: 36415; 80053; 80061; 83735; 84443; 85025

== ENCOUNTER 2019-05-22 21:29 | Emergency (ER) | payer OTHER, SELFPAY ==
[2018-12-08 12:39] VITALS: BMI 20.9
--- NOTE | 2019-05-22 21:36 | ED_ITS ---
HPI - General Adult General Chief complaint: Arrhythmia/Palpitations Stated complaint: states bad heart palpitations Time Seen by Provider: 05/22/19 21:36 Source: patient Mode of arrival: ambulatory Limitations: no limitations History of Present Illness HPI narrative: Patient is a 58-year-old female here for evaluation of palpitations. Patient states she has had these palpitations for some time now. She has seen a woodworker helper and has worn a Holter monitor. She does not have the results of this Holter monitor. She has an appoint with her woodworker helper later this month to discuss the results. She did state she had 1 episode of palpitations while she was wearing the Holter monitor. She returns to the doctors hospital department today because the same symptoms that she has had in the past have become more progressive over the next couple days. She denies any chest pain or shortness of breath. No lightheadedness. States she occasionally gets a headache but none currently. Related Data Home Medications Medication Instructions Recorded Confirmed rizatriptan [Maxalt-EDUCATIONAL INTERPRETER] 10 mg PO PRN PRN #0 10/14/17 01/12/19 ibuprofen 4 tab PO DAILY PRN 11/23/18 01/12/19 gabapentin 300 mg capsule 300 mg PO BID PRN 01/12/19 01/12/19 Previous Rx's Medication Instructions Recorded acetaminophen 650 mg PO Q6HR PRN #30 tab 12/10/18 varicella-zoster glycoE [id number] 0.5 ml IM ONCE #1 each 01/12/19 adj(PF) 50 mcg/0.5 mL IM susp, kit Allergies Allergy/AdvReac Type Severity Reaction Status Date / Time hydromorphone [From Dilaudid] AdvReac Severe IV only - Verified 05/22/19 21:46 Severe bradycardia oxycodone [From Percocet] AdvReac Severe DOES NOT Verified 05/22/19 21:46 TOLERATE GENERIC morphine AdvReac Intermediate Nausea Verified 05/22/19 21:46 PAIN MEDICATION SENSITIVITY AdvReac Severe Severe Uncoded 01/12/19 08:54 Bradycardia, does not tolerate generics Review of Systems Constitutional Denies fever(s) Cardiovascular Denies chest pain, Reports palpitations and Denies dyspnea Respiratory Denies dyspnea Gastrointestinal Gastrointestinal: Denies abdominal pain, Denies nausea and Denies vomiting Genitourinary Denies dysuria Musculoskeletal Denies myalgias and Denies arthralgias Integumentary/Breasts Denies new lesions and Denies rash Neurologic Denies behavioral changes Psychiatric Denies behavioral changes Endocrine Reports palpitations Hematologic/Lymphatic Denies easy bleeding and Denies easy bruising [facility] Medical History Asthma (Chronic) Carpal tunnel syndrome (Chronic ~2018) Chronic back pain (Chronic) Colon polyps (Chronic ~2017) Fecal incontinence alternating with constipation (Chronic) GERD (gastroesophageal reflux disease) (Chronic) Gluten enteropathy (Chronic) Hyperthyroidism (Chronic ~1977) Irritable bowel syndrome (Chronic) Migraines (Chronic) Numbness and tingling (Chronic) Peptic ulcer disease (Chronic ~1976) Seasonal allergies (Chronic) Chicken pox (Resolved ~1963) Former smoker (Resolved) H/O: hysterectomy (Resolved ~1991) Pneumonia (Resolved) Surgical History (Updated 02/18/19 @ 21:18 by Jennifer Vick) Anesthesia (Resolved) History of bunionectomy of both great toes (Resolved) History of foot surgery (Resolved) History of lumbar spinal fusion (Resolved 10/26/17) Hx of laminectomy (Resolved) Hx of shoulder surgery (Resolved) S/P bilateral foot surgery (Resolved) Family History (Updated 02/18/19 @ 21:18 by Jennifer Vick) Mother Heart disease Other Family history non-contributory Social History household members: spouse Smoking Status: Former smoker Tobacco: How many years used: 30 second hand exposure: No alcohol intake: current (a couple of beers a day) substance use type: does not use Family History (Updated 02/18/19 @ 21:18 by Jennifer Vick) Mother Heart disease Other Family history non-contributory Social History household members: spouse Smoking Status: Former smoker Tobacco: How many years used: 30 second hand exposure: No alcohol intake: current (a couple of beers a day) substance use type: does not use Exam Initial Vital Signs Initial Vital Signs: Vital Signs Temperature 98.3 F 05/22/19 21:43 Pulse Rate 102 H 05/22/19 21:43 Respiratory Rate 15 05/22/19 21:43 Blood Pressure 171/65 H 05/22/19 21:43 Pulse Oximetry 100 05/22/19 21:43 Const General: cooperative, comfortable, well developed, well groomed and No acute distress Orientation: alert, awake and oriented x3 HENMT Head: normal to inspection and normocephalic Resp Effort & Inspection: normal respiratory effort Auscultation: clear to auscultation bilaterally Cardio Rate: regular rate Rhythm: regular rhythm Pulses: radial pulses present GI Inspection: non-distended Palpation: soft and No tender Skin Lesions: no lesions Rashes: no rashes Neuro General: alert, awake and oriented x3 Cognition: normal cognition Speech: speech normal Gait: normal gait Motor: muscle tone normal throughout Sensory Exam: no sensory deficits noted Extrem General: normal to inspection and capillary refill normal Psych Appearance: grossly normal and well kempt Course Orders Ordered: ED Orders 05/22/19 21:37 XR chest 1V Stat EKG-12 Lead Stat 05/22/19 21:47 Basic Metabolic Panel Stat Complete Blood Count AUTO DIFF Stat Vital Signs - 8 hr 05/22/19 21:43 05/22/19 21:51 05/22/19 22:30 Temperature 98.3 F Pulse Rate 102 H 83 88 Respiratory Rate 15 24 18 Blood Pressure 171/65 H Blood Pressure [Left Arm] 171/65 H 117/81 Pulse Oximetry 100 100 98 Medical Decision Making Lab Data Lab results reviewed: Yes I reviewed the patient's lab results. Result diagrams: 05/22/19 21:47 05/22/19 21:47 Lab Results 05/22/19 05/22/19 Range/Units 21:47 21:47 WBC 7.7 (4.5-11.0) X10^3/uL RBC 4.51 (4.0-5.2) X10^6/uL Hgb 14.6 (12.0-16.0) g/dL Hct 42.8 (36-46) % MCV 94.9 (80-100) fL MCH 32.3 (26-34) PG MCHC 34.1 (30-36) % RDW 13.9 (11.6-14.8) % Plt Count 287 (150-400) X10^3/uL Neut % (Auto) 47.4 L (50-75) % Lymph % (Auto) 43.4 H (25-40) % [place] % (Auto) 5.9 (3-14) % Eos % (Auto) 2.7 (2-4) % Baso % (Auto) 0.6 (0-2) % Neut # (Auto) 3600 (5804-6663) /uL Lymph # (Auto) 3300 (3551-7810) /uL [place] # (Auto) 500 (0-900) /uL Eos # (Auto) 200 (0-450) /uL Baso # (Auto) 0 (0-100) /uL Sodium 142 (137-145) mmol/L Potassium 3.4 (3.4-5.1) mmol/L Chloride 101 (98-107) mmol/L Carbon Dioxide 30 (22-32) mmol/L BUN 15 (7-17) mg/dL Creatinine 0.50 L (0.52-1.04) mg/dL Estimated GFR > 60.0 (>60) mL/min BUN/Creatinine Ratio 30.0 H (6-22) Glucose 101 H (70-100) mg/dL Calcium 10.2 (8.4-10.2) mg/dL Imaging Data Chest x-ray: Radiologist's impression: [address] [address] XRay Report Signed Patient: Daisy Toledo [facility]#: [id number] : [id number]:[id number] Age/Sex: 58 / FDate of Service: 05/22/19 Loc: ED Accession Number: [id number] Procedure: XR chest 1V Ordering Provider: Oren Pitts D.O. PROCEDURE: XR CHEST 1V INDICATIONS: Palpitations TECHNIQUE: One view of the chest was acquired. COMPARISON: [facility], , CHEST 2 VIEW, 06/15/2015, 6:30. FINDINGS: Surgical changes and devices: None. Lungs and pleura: Lungs are clear. No pleural effusions or pneumothorax. Mediastinum: Mediastinal contours appear normal. Heart size is normal. Bones and chest wall: No suspicious bony lesions. Overlying soft tissues appear unremarkable. IMPRESSION: No acute cardiopulmonary findings. Dictated by: May Diaz M.D. on 05/22/2019 at 22:04 Approved by: May Diaz M.D. on 05/22/2019 at 22:06 ECG Data Attestation: I personally reviewed and interpreted this ECG as follows: Prior ECG tracings: not available for review Interpretation: Sinus rhythm Ventricular rate of 93 Normal axis Normal QRS Normal QTC One Pac MDM Narrative Medical decision making narrative: Patient stated that she had 1 episode of symptoms here in the emergency department. 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 Her EKG showed 1 Pac. Chest x-ray is unremarkable. Labs are unremarkable. We did discuss this with the patient. She has a follow-up with her woodworker helper later this month. I suspect that the PACs are which she is feeling. She is not having any chest pain or shortness of breath for has never passed out because of the symptoms. Will hold on further workup for now. We discussed return precautions and follow-up instructions. She expressed understanding and agreement with plan. Discharge Plan Departure Patient Disposition: Home Clinical Impression: Palpitations, Atrial contractions, premature Discharge Date/Time: 05/22/19 22:58 Interventions: ED Discharge Assessment Last Done: 05/22/19 22:57 Instructions: DI for Palpitations Activity Restrictions/Additional Instructions: Recommend you keep all of your follow-up appointments with your woodworker helper. Continue all of your medications as directed. Return to the emergency department for any new or worsening symptoms Prescriptions: No Action Shingrix (PF) 50 mcg/0.5 mL suspension for reconstitution 0.5 ml IM ONCE Qty: 1 RF: 0 gabapentin 300 mg capsule 300 mg PO BID PRNRF: 0 rizatriptan [Maxalt-EDUCATIONAL INTERPRETER] 10 MG tablet,disintegrating 10 mg PO PRN PRN (Reason: Migraines) Qty: 0 RF: 0 ibuprofen 200 mg Tablet 4 tab PO DAILY PRN (Reason: pain) RF: 0 acetaminophen 325 mg Tablet 650 mg PO Q6HR PRN (Reason: Pain, Mild (1-3)) Qty: 30 RF: 0 Referrals: Lou Chavarria DO [Primary Care Provider] -
[2019-05-22 21:43] VITALS: BP 171/65; PULSE 102; RESP 15; TEMP 36.8; O2SAT 100; BMI 21.5
[2019-05-22 21:51] VITALS: BP 171/65; PULSE 83; RESP 24; O2SAT 100
[2019-05-22 22:02] LABS: Add Manual Diff / Slide Review NO; Basophils Absolute Auto 0 /uL (0-100); Basophils Percent Auto 0.6 % (0-2); Eosinophils Absolute Auto 200 /uL (0-450); Eosinophils Percent Auto 2.7 % (2-4); Hematocrit 42.8 % (36-46); Hemoglobin 14.6 g/dL (12.0-16.0); Lymphocytes Absolute Auto 3300 /uL (1100-4500); Lymphocytes Percent Auto 43.4 % (25-40); Mean Corpuscular HGB Conc 34.1 % (30-36); Mean Corpuscular Hemoglobin 32.3 PG (26-34); Mean Corpuscular Volume 94.9 fL (80-100); Monocytes Absolute Auto 500 /uL (0-900); Monocytes Percent Auto 5.9 % (3-14); Neutrophils Absolute Auto 3600 /uL (1500-7000); Neutrophils Percent Auto 47.4 % (50-75); Platelet Count 287 X10^3/uL (150-400); Red Blood Cell Count 4.51 X10^6/uL (4.0-5.2); Red Cell Distribution Width 13.9 % (11.6-14.8); White Blood Cell Count 7.7 X10^3/uL (4.5-11.0)
[2019-05-22 22:13] LABS: Blood Urea Nitrogen 15 mg/dL (7-17); Calcium 10.2 mg/dL (8.4-10.2); Carbon Dioxide 30 mmol/L (22-32); Chloride 101 mmol/L (98-107); Estimated Glomerular Filt Rate > 60.0 mL/min (>60); Glucose 101 mg/dL (70-100); HEMOLYSIS 28 (0-50); Potassium 3.4 mmol/L (3.4-5.1); Sodium 142 mmol/L (137-145)
[2019-05-22 22:30] VITALS: BP 117/81; PULSE 88; RESP 18; O2SAT 98
== END 2019-05-22 22:58 | disposition home or self-care (01) ==
PROVIDERS: Emergency Provider Emergency Medicine; PCP Family Medicine
DX: R00.2 Palpitations (principal); I49.2 Junctional premature depolarization
CPT/HCPCS: 36591; 71045; 80048; 85025; 93005; 99282; 99285

== ENCOUNTER → 2019-06-29 14:18 | Outpatient (CLI) | payer OTHER, SELFPAY ==
[2018-12-08 12:39] VITALS: BMI 20.9
[2019-06-29 15:59] LABS: Blood Urea Nitrogen 14 mg/dL (7-17); Carbon Dioxide 30 mmol/L (22-32); Chloride 98 mmol/L (98-107); Estimated Glomerular Filt Rate > 60.0 mL/min (>60); Glucose 93 mg/dL (70-100); HEMOLYSIS < 15 (0-50); Potassium 4.2 mmol/L (3.4-5.1); Sodium 137 mmol/L (137-145)
== END ==
PROVIDERS: Family Provider Family Medicine; PCP Family Medicine; Visit Provider Internal Medicine Cardiovascular Disease
DX: R00.2 Palpitations (principal); I49.1 Atrial premature depolarization
CPT/HCPCS: 36415; 80048

== ENCOUNTER → 2019-09-27 13:15 | Outpatient (CLI) | payer OTHER, SELFPAY ==
[2018-12-08 12:39] VITALS: BMI 20.9
== END ==
PROVIDERS: PCP Family Medicine; Visit Provider Family Medicine
DX: M85.851 Other specified disorders of bone density and structure, right thigh (principal); Z78.0 Asymptomatic menopausal state; M48.061 Spinal stenosis, lumbar region without neurogenic claudication; S32.009K Unspecified fracture of unspecified lumbar vertebra, subsequent encounter for fracture with nonunion; Z98.1 Arthrodesis status; Z87.891 Personal history of nicotine dependence
CPT/HCPCS: 77080

== ENCOUNTER → 2019-10-05 11:35 | Outpatient (CLI) | payer OTHER, SELFPAY ==
[2018-12-08 12:39] VITALS: BMI 20.9
[2019-10-05 12:08] LABS: Add Manual Diff / Slide Review NO; Basophils Absolute Auto 100 /uL (0-100); Eosinophils Absolute Auto 100 /uL (0-450); Hematocrit 40.1 % (36-46); Hemoglobin 13.8 g/dL (12.0-16.0); Lymphocytes Absolute Auto 2000 /uL (1100-4500); Lymphocytes Percent Auto 34.7 % (25-40); Mean Corpuscular HGB Conc 34.3 % (30-36); Mean Corpuscular Hemoglobin 32.6 PG (26-34); Monocytes Absolute Auto 400 /uL (0-900); Monocytes Percent Auto 7.1 % (3-14); Neutrophils Absolute Auto 3100 /uL (1500-7000); Neutrophils Percent Auto 55.2 % (50-75); Platelet Count 347 X10^3/uL (150-400); Red Blood Cell Count 4.22 X10^6/uL (4.0-5.2); Red Cell Distribution Width 13.5 % (11.6-14.8); White Blood Cell Count 5.7 X10^3/uL (4.5-11.0)
[2019-10-05 12:45] LABS: BUN Creatinine Ratio 25.7 (6-22); Blood Urea Nitrogen 18 mg/dL (7-17); Calcium 10.3 mg/dL (8.4-10.2); Carbon Dioxide 29 mmol/L (22-32); Chloride 101 mmol/L (98-107); Estimated Glomerular Filt Rate > 60.0 mL/min (>60); Glucose 100 mg/dL (70-100); HEMOLYSIS < 15 (0-50); Potassium 4.5 mmol/L (3.4-5.1); Sodium 138 mmol/L (137-145)
== END ==
PROVIDERS: PCP Family Medicine; Visit Provider Orthopaedic Surgery Orthopaedic Surgery of the Spine
DX: Z01.812 Encounter for preprocedural laboratory examination (principal)
CPT/HCPCS: 36415; 80048; 85025; 93005

== ENCOUNTER 2019-10-17 06:19 | Inpatient (IN) | payer OTHER, SELFPAY ==
[2018-12-08 12:39] VITALS: BMI 20.9
[2019-10-17] VITALS (20 sets, daily range): BP systolic 114–156; BP diastolic 50–89; PULSE 58–88; RESP 6–18; TEMP 36.1–37.1; O2SAT 93–100; BMI 21.2
--- NOTE | 2019-10-17 | DI.RAD.S_ITS ---
PROCEDURE: XR CERVICAL SPINE 2V OR 3V INDICATIONS: ACDF TECHNIQUE: 2 postoperative view(s) of the cervical spine were acquired. COMPARISON: None. FINDINGS: Bones: Expected postoperative alignment after anterior cervical discectomy and anterior fusion plate placement spanning from C3-C6. Interbody disc spacers are present at C34, C4-5, and C5-6. Soft tissues: No prevertebral soft tissue swelling. IMPRESSION: Normal alignment established after cervical anterior fusion procedure with interbody disc spacers as described. Dictated by: Simone Harris M.D. on 10/17/2019 at 11:02 Approved by: Simone Harris M.D. on 10/17/2019 at 11:03
[2019-10-17] MEDS: LACTATED RINGERS 1,000 ML 42 ML IV ×2 (07:45→10:06)
--- NOTE | 2019-10-17 07:53 | PM.PREOP ---
Pre-operative Note Interval Note History & Physical reviewed/Exam performed by Physician: Yes Changes to H&P: No
[2019-10-17] MEDS: CEFAZOLIN 1 GM/50 ML FROZ.PIGGY IV ×2 (08:04→16:50)
--- NOTE | 2019-10-17 08:42 | SUR.OPER ---
Supine, head on gel donut. Arms padded with gel pads, tucked at sides, towel roll under shoulders. Safety belt at thigh. Legs uncrossed.
[2019-10-17] MEDS: BUPIVACAINE 0.25% W/ EPI (PF) 10 ML VIAL 20 ML INJ (09:14)
--- NOTE | 2019-10-17 10:14 | PC.NURSE ---
Day shift: Pt not on AC unit at this time.
--- NOTE | 2019-10-17 10:48 | PM.OP.1 ---
Operative Date/Time/Diagnoses Date of procedure: 10/17/19 Time of procedure: 07:49 Pre-op diagnosis: 1. C3-4, C4-5, C5-6 spinal stenosis 2. C3-4, C4-5, C5-6 spondylosis with radiculopathy Post-op diagnosis: same Procedure & Clinicians Procedure: 1. C3-4, C4-5, C5-6 anterior cervical diskectomy and fusion 2. C3-4, C4-5, C5-6 anterior interbody cage placement 3. C3-4, C4-5, C5-6 anterior instrumentation with plate and screw placement in C3-C4-C5 and C6 vertebrae 4. Utilization of microsurgical technique and operating microscope Same procedure as scheduled: Yes Indications: Patient has been having chronic neck pain and worsening cervical radiculopathy. Patient failed multiple conservative management with worsening pain weakness and numbness in her upper extremity. Patient has been having difficulty performing activity of daily living. After discussing risks benefits of treatment options, patient elected proceed with surgery. Surgeon: Brooke Kwong [employer] Laborer: Noelle Cruz Click Yes if Unassisted: No Anesthesia Type: General Operative Notes Closure Type: primary Specimen(s): none sent Prosthetic devices, grafts, tissues, transplants, or devices: GLobus Extend plate, PEEK cages Applied: catheter Estimated Blood Loss (mL): 50 Blood products transfused: none Procedure in detail: Patient was seen in the preoperative area. Risks and benefits of the surgery was discussed with the patient. Operative consent was obtained and placed in the chart. Patient was then taken to the operative room. Prophylactic antibiotic was given less than 0.5 hr prior to skin incision. General anesthesia was administered. Patient was placed into a supine position on her radiolucent table. Bilateral shoulders were taped down to allow proper C-arm imaging. Anterior cervical area was prepped and draped in a sterile fashion. Time-out was performed at this time. Using lateral C-arm imaging, the level between C3 and C6 was identified and marked on patient's neck. A oblique incision from midline towards medial border of sternocleidomastoid muscle was made. The platysma muscle was incised in line with skin incision. Metzenbaum scissor was used to develop the plane between the medial border of sternocleidomastoid d and the strap muscles medially. The carotid sheath and its contents were identified and protected behind the hand-held retractor during the entire case. The plane between the carotid sheath and strap muscles was developed with Metzenbaum scissors. Dissection was made down to the level of the anterior cervical fascia. Longus colli muscle was incised on the anterior aspect of vertebral bodies bilaterally from C3-C6. Spinal needle was placed into the C3-4 disc space and confirmed with lateral C-arm imaging. Using microsurgical technique and operative microscope, anterior cervical diskectomy was performed at C3-4 C4-5 and C5-6 level. This was done by removing the disc material, removing the anterior and posterior osteophytes posterior longitudinal ligaments along with performing bilateral foraminotomies at all 3 levels. Patient was found to have severe central and foraminal stenosis at all 3 levels. Patient's stenosis was fully decompressed after decompression was completed. After the diskectomy was completed, 3 anterior interbody cages were obtained. The cages were packed with globus via cell bone grafting material. One cage each along with the bone grafting material was then packed into the interbody spaces from C3-C6 with one cage into each interbody level. After the cages were placed, the anterior cervical plate was stabilized to the C3-C6 vertebrae using 2 screws at each each level. Total 8 screws were placed. After confirming placement of the hardware with AP and lateral C-arm imaging, the screws were locked into the plate using the locking mechanism and torque limiting screwdriver. After the hardware was placed and confirmed with AP and lateral C-arm imaging, the wound was irrigated with sterile normal saline. The platysma muscle and the subcutaneous tissue was closed with 2-0 Vicryl. The skin was closed with 4-0 Monocryl and Steri-Strips. Patient tolerated the procedure well. Patient was transferred recovery room in stable condition. There were no complications. Complications: none Post-operative Condition: stable Disposition: PACU Plan for aftercare: Admit to inpatient hospital
--- NOTE | 2019-10-17 11:47 | SUR.PHASEI ---
Patient ZUNIGA's x 4; R < L. Patient able to swallow, but has sensation of needing to burp afterwards. Patient is reporting 6/10 pain, but apprehensive about taking IV Dilaudid 2 to patient had trouble breathing with prior surgery.
[2019-10-17] MEDS: hydrOXYzine pamoate 25 MG CAPSULE PO ×3 (12:00→17:40)
[2019-10-17] MEDS: HYDROMORPHONE 2 MG TABLET PO ×4 (12:05→22:28)
--- NOTE | 2019-10-17 12:15 | SUR.PHASEI ---
Patient is rating pain 10/10. Gave po pain medication.
--- NOTE | 2019-10-17 12:46 | PC.NURSE ---
Day shift: Pt on unit at approx 1245 from PACu. Oriented to room and call light. Spouse (Pat) in room for support. VS WNL. CMS intact. Radial pulses present. RA 96%. Encouraged to cough and deep breath. Talked with Pt and spouse about the importance of sitting up straight when eating and drinking as well as keeping any distractions to a minimum.
[2019-10-17] MEDS: SODIUM CHLORIDE 0.9% 1,000 ML 100 ML IV (13:35)
[2019-10-17] MEDS: ACETAMINOPHEN 325 MG TABLET 650 MG PO (13:39)
[2019-10-17] MEDS: GABAPENTIN 300 MG CAPSULE PO (13:40)
--- NOTE | 2019-10-17 15:03 | PT-IP ANOTE ---
PT orders received and chart reviewed. Contacted pt for subjective interview with spouse in room. Pt attested that she was willing and ready to attempt mobility although she appeared groggy. She had appropriate hemodynamic response to sitting and standing but immediately reported sensation of heavy head and weak legs standing with FWW. Pt was assisted with return to bed with HOB elevated, ice packs in place, soft collar on, bed alarm armed, and call light within reach. RN notified. Will check on pt again morning of 10/18 to complete mobility assessment.
--- NOTE | 2019-10-17 16:28 | CM.DANOTE ---
DCP Assessment: EMR reviewed: patient is a 59 yr old female who was admitted for Anterior cervical discectomy and fusion preformed by Dr. LOWE. Patients PCP is Dr. Chavarria. CM/RN met with patient at the bedside patient was alert but groggy and oriented at the time of CM/Rn visit. Patients and Emergency contact Pat was at the bedside as well. Patient is mostly I with ADL's at baseline. Patient was struggling with dressing and driving prior to spinal surgery due to pain. Patient state I am hopeful that i will be more independent once I heal from surgery. Patient lives in a two story home with about 15 steps between floors. Patients (Pat) is planning on being at home to help the patient recover. Patient has a post op visit scheduled with her surgeon on October 28 2019. PT evaluation and step evaluation pending. Patient stated she owns a cane at home but no other DME. I: 1st: [facility], 2nd: Self pay Plan: D/C home with when medically stable and pending PT evaluation. No Identified D/C planning needs noted at this time. CM department will follow for any new D/C planning needs as they arise. Summer Izaguirre RN Discharge Planning/Care Management CM Discharge Assessment Start: 10/17/19 16:26 Freq: Status: Active Protocol: Document 10/17/19 16:26 (Rec: 10/17/19 16:28 [id number]) Discharge Planning Assessment Assigned Street Worker Summer Izaguirre RN DPOA/Assigned Designee Name Jolynn Mousel Contact Information [phone] Advance Directives? No Advance Directives on File No History Provided By Patient Has Patient been admitted in last 30 No days? Prior Living Arrangements House Household Members spouse,other Type of transporation used prior to Relies on Others admit Comment patient relied on others prior to surgery but really wants to be able to drive again once healed from surgery. Independent with ADL's Yes: prior to surgery struggled with dressing but was still able Is patient alert and oriented? Yes Caregiver for Another No DME Already Rented / Owned Cane Discharge Plan Home Referrals Initiated None needed Whiteboard Updated in Patient Room with Yes name and ext. # of Street Worker Review Status In Process Next Review Type Continued Stay Review
[2019-10-17] MEDS: DEXAMETHASONE 4 MG/ML VIAL IV (21:18)
[2019-10-17] MEDS: BENZOCAINE/MENTHOL 1 LOZ PKT 1 EACH PO (21:30)
[2019-10-18] MEDS: CEFAZOLIN 1 GM/50 ML FROZ.PIGGY IV (00:03)
[2019-10-18 00:10] VITALS: BP 154/77; RESP 16; TEMP 36.7; O2SAT 100
[2019-10-18] MEDS: HYDROMORPHONE 2 MG TABLET PO ×6 (03:17→21:13)
[2019-10-18] MEDS: BENZOCAINE/MENTHOL 1 LOZ PKT 1 EACH PO ×2 (03:17→23:56)
[2019-10-18 06:00] VITALS: BP 126/57; PULSE 90; RESP 18; TEMP 36.6; O2SAT 99
[2019-10-18 07:45] VITALS: BP 137/65; PULSE 60; RESP 17; TEMP 36.1; O2SAT 99
--- NOTE | 2019-10-18 08:19 | PM.PNPO.1 ---
Subjective Subjective Date Patient Seen: 10/18/19 Time Patient Seen: 08:19 Interval history: Patient states she is having difficulty swallowing liquids. She had difficulty swallowing pills. She has not been choking. Denies shortness of breath or chest pain. Denies fever/ chills. Exam Vital Signs (past 8 hours): - 10/18/19 06:00 Temperature 98 F Pulse Rate 90 Respiratory Rate 18 Blood Pressure 126/57 L Pulse Oximetry 99 Oxygen Delivery Method Nasal Cannula Oxygen Flow Rate 0 Narrative Exam Narrative: 59-year-old female resting comfortably in bed in no apparent distress. Patient is able answer questions/talk without difficulty. Anterior cervical dressing is clean, dry and intact. There appears to be minimal swelling about the neck. She has 5/5 strength bilateral upper extremities. Sensation grossly intact to light touch bilateral upper extremities. Assessment & Plan Post-op Postoperative Procedures: Procedures Operation Date: 10/17/19 07:45 Actual Procedures Side Surgeon p C3-4, C4-5, C5-6 Anterior Cervical Discectomy and Fusion w/ anterior instrumentation Not Applicable Brooke Kwong MD Patient postop day 1. Patient having difficulty swelling in will order a speech eval. Soft collar for comfort. Mobilize with physical therapy.
--- NOTE | 2019-10-18 09:30 | OT.IP.EVAL ---
Current Diagnoses Spondylolisthesis, cervical region (10/17/19) Spinal stenosis, cervical region (10/17/19) Surgery Performed Operation Date: 10/17/19 07:45 Actual Procedures p C3-4, C4-5, C5-6 Anterior Cervical Discectomy and Fusion w/ anterior instrumentation(Not Applicable) - Brooke Kwong MD Past Medical History (Last Reviewed 10/11/19 @ 10:27 by Lou Chavarria DO) Asthma (Chronic) Carpal tunnel syndrome (Chronic ~2018) Chicken pox (Resolved ~1963) Chronic back pain (Chronic) Colon polyps (Chronic ~2017) Fecal incontinence alternating with constipation (Chronic) Former smoker (Resolved) GERD (gastroesophageal reflux disease) (Chronic) Gluten enteropathy (Chronic) Hyperthyroidism (Chronic ~1977) Irritable bowel syndrome (Chronic) Migraines (Chronic) Numbness and tingling (Chronic) Peptic ulcer disease (Chronic ~1976) Pneumonia (Resolved) Seasonal allergies (Chronic) Surgical History (Last Reviewed 10/11/19 @ 10:27 by Lou Chavarria DO) Anesthesia (Resolved) H/O: hysterectomy (Resolved ~1991) History of bunionectomy of both great toes (Resolved) History of foot surgery (Resolved) History of lumbar spinal fusion (Resolved 10/26/17) Hx of laminectomy (Resolved) Hx of shoulder surgery (Resolved) S/P bilateral foot surgery (Resolved) Occupational Therapy Inpatient Evaluation/Re-Eval M1 PT/OT-IP Prior Functional Status Start: 10/18/19 10:08 Freq: NEEDED Status: Active Protocol: Document 10/18/19 09:30 [facility] (Rec: 10/18/19 10:31 [facility] [id number]) Medical Review Prior Functional Status Medical History Reviewed Yes Communication Independent. Mobility and Gait Pt did not use a device and was completely independent. Activities of Daily Living and IADL's Increased time to get dressed due to pain, and difficulty to drive. Social History Household Members spouse,other Living Arrangements House Number of Floors (Floors) Two Floors Number of Stairs To Enter/Railing? No steps to enter , 13 steps with right hand rail to get to the bedroom. 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 Patient/Caregiver Goals To go home. OT Pain Assessment Pain When Pain Assessed At Rest Pain Present Pain Present Pain Reported M4 OT- IP ADL's Start: 10/18/19 10:08 Freq: Status: Active Protocol: Document 10/18/19 09:30 [facility] (Rec: 10/18/19 10:31 [facility] [id number]) OT CQA-Ckjj-[id number] Comments OT Self-Feeding Comments Pt able to self feed however only able to get down clear liquids at this time. OT ADL-Grooming General Evaluation Grooming Ability Standby Assistance OT ADL-Oral Care Comments Oral Care Comments Educated to spit into a cup or bend at her hips to be able to spit into the sink. OT ADL-Dressing Comments OT Dressing Comments Pt not wanting to get dressed at this time. OT ADL-Toileting General Evaluation Toileting Ability Independent Comments OT Toileting Comments Independent for all toieleting needs. OT ADL-Bathing Comments OT Bathing Comments Pt not wanting to shower at this time. Suggested to have a shower chair so that her can assist especially with her hair. M5 OT- IP IADL's Start: 10/18/19 10:08 Freq: Status: Active Protocol: Document 10/18/19 09:30 [facility] (Rec: 10/18/19 10:31 [facility] [id number]) OT-Instrumental Activities of Daily Living Home Safety Awareness Awareness of Need for Assistance at Home Good Awareness Ability to Problem Solve Emergency Able to Problem Solve Situations Medication Management Medication Management No Deficits Identified Money Management Money Management No Deficits Identified Meal Preparation Meal Preparation Caregiver Provides Assist Rigging Helper Rigging Helper Caregiver Provides Assist Driving Driving Caregiver Provides Assist M6 OT- IP Functional Cognition Start: 10/18/19 10:08 Freq: Status: Active Protocol: Document 10/18/19 09:30 [facility] (Rec: 10/18/19 10:31 [facility] [id number]) Cognitive Factors Limiting Selfcare Function Cognitive Ability Level of Alertness Alert Patient Orientation Name,Age,Birthday,Month,Date, Year,Day of Week,Place, Situation Attention Span Ability Capable of Focused Attention, Capable of Sustained Attention Ability to Follow Commands Able to Follow Multi-Step Commands Memory Description No Deficits Noted Safety Awareness No Deficits Noted Problem Solving Ability No deficits Noted Cognitive Comments Cognitive Assessment Comments No deficits. OT- Vision and Hearing OT- Hearing Assessment OT- Hearing Assessment WFL OT- Vision Assessment Visual Acuity Glasses All The Time M7 OT- IP Mobility and Balance Start: 10/18/19 10:08 Freq: Status: Active Protocol: Document 10/18/19 09:30 [facility] (Rec: 10/18/19 10:31 [facility] [id number]) OT- Bed Mobility Assessment Supine to Sit Supine to Sit Assist Independent Sit to Supine Sit to Supine Assist Independent OT-Transfer Assessment Sit to and From Stand Sit to and from Stand Independent Transfers Transfer Ability Standby Assistance Technique Transfer Destination Bed,Toilet Comments Mobility Comments SBA mainly assist to help manage IV pole. OT- Balance Assessment Sitting Balance and Reactions Static Sitting Balance Ability Normal Dynamic Sitting Balance Ability Normal Standing Balance and Reactions Static Standing Balance Ability Normal M8 OT- IP Objective Assessments Start: 10/18/19 10:08 Freq: Status: Active Protocol: Document 10/18/19 09:30 [facility] (Rec: 10/18/19 10:31 [facility] [id number]) OT Gross Range of Motion Upper Extremity Range of Motion Assessment Left Impaired ROM Impairments Left UE decreased shoulder flexion 0-100. OT Strength Comments Strength Comments NT , but functional for needs at this time. M9 OT- IP Assessment and Plan Start: 10/18/19 10:08 Freq: Status: Active Protocol: Document 10/18/19 09:30 [facility] (Rec: 10/18/19 10:31 [facility] [id number]) OT Summary Assessment and Plan Potential Rehabilitation Potential Good Analytic Complexity at Evaluation Low Summary OT Impairments Pain,Bathing Progress Towards Goals Progressing Toward Goals Assessment Summary Pt low complexity and main barrier is difficulty to swallow , otherwise mostly independent with all Adl needs at this time. Pt has a supportive who has good understanding to be able to assist pt at home. Therefore discharge pt from OT services at this time. Goals Patient/Caregiver Education Goal Caregiver Independent Assisting Patient Days to Meet Goals 1 Frequency of Treatment Frequency Of Treatment Once a Day Treatment Plan OT Treatment Plan Patient/Family Education, Discharge Planning Discharge Recommendations OT Discharge Recommendations Home with Assistance Home Equipment Needs shower chair
[2019-10-18] MEDS: SODIUM CHLORIDE 0.9% 1,000 ML 100 ML IV (09:55)
--- NOTE | 2019-10-18 09:57 | CM.DPC ---
DCP/Continued: Reviewed chart. Patient underwent cervical surgery on 10-17-[address] Kwong. Met with patient and spouse/Pat at bedside explained CM/SW role. Patient reports that she has been up moving around in room, to/from bathroom. Patient has concern about her inability to swallow. Spoke with RN/Gisele and she reports that ST has been ordered. Spoke with therapy and they will call ST to come as soon as possible. P: Anticipate patient will return home with supportive spouse when medically stable. DEVYN Farr
--- NOTE | 2019-10-18 10:03 | PC.NURSE ---
Addendum entered by Evangelina Rodrigues R.N. 10/18/19 11:05: Curly GARAY in to see patient, new orders for steroids received. Original Note: Patient alert, oriented rates pain to neck 02/23. Given dilaudid PO by NOC shift nurse, patient reports difficulty swallowing, liquids, apple sauce and pills. States it's not painful, it just feels like everything is stuck, like the hole isn't big enough.JARROD Devries aware and ordered speech therapy eval . This RN spoke with speech therapist, per therapist patient reports she is unable to swallow and does not want to try. Patient reports that a dose of IV steroids given last night was helpful with the swelling and helped with her swallow. Call out to JARROD Devries. Patient remains NPO at this time. Patient with no signs and symptoms of respiratory distress, on RA sats 97%, lungs sounds clear to auscultation.
--- NOTE | 2019-10-18 10:50 | PT.IIE ---
Current Diagnoses Spondylolisthesis, cervical region (10/17/19) Spinal stenosis, cervical region (10/17/19) Surgery Performed Operation Date: 10/17/19 07:45 Actual Procedures p C3-4, C4-5, C5-6 Anterior Cervical Discectomy and Fusion w/ anterior instrumentation(Not Applicable) - Brooke Kwong MD Surgical History (Last Reviewed 10/11/19 @ 10:27 by Lou Chavarria DO) Anesthesia (Resolved) H/O: hysterectomy (Resolved ~1991) History of bunionectomy of both great toes (Resolved) History of foot surgery (Resolved) History of lumbar spinal fusion (Resolved 10/26/17) Hx of laminectomy (Resolved) Hx of shoulder surgery (Resolved) S/P bilateral foot surgery (Resolved) Medical History (Last Reviewed 10/11/19 @ 10:27 by Lou Chavarria DO) Asthma (Chronic) Carpal tunnel syndrome (Chronic ~2018) Chicken pox (Resolved ~1963) Chronic back pain (Chronic) Colon polyps (Chronic ~2017) Fecal incontinence alternating with constipation (Chronic) Former smoker (Resolved) GERD (gastroesophageal reflux disease) (Chronic) Gluten enteropathy (Chronic) Hyperthyroidism (Chronic ~1977) Irritable bowel syndrome (Chronic) Migraines (Chronic) Numbness and tingling (Chronic) Peptic ulcer disease (Chronic ~1976) Pneumonia (Resolved) Seasonal allergies (Chronic) Physical Therapy Inpatient Evaluation/Re-Eval M1 PT/OT-IP Prior Functional Status Start: 10/18/19 10:08 Freq: NEEDED Status: Active Protocol: Document 10/18/19 10:30 [facility] (Rec: 10/18/19 10:50 [facility] [id number]) Medical Review Prior Functional Status Medical History Reviewed Yes Diet/Fluid Consistency NPO Communication WNL Mobility and Gait Pt was an independent ambulator without need for assistive device and with no distance limitations. Activities of Daily Living and IADL's Independent Social History Household Members spouse,other Living Arrangements House Number of Floors (Floors) Two Floors Number of Stairs To Enter/Railing? Level entrance. Pt enters on main level with kitchen, bathroom, laundry, office, and sunken living room (2 steps without railing). 13 steps to second level with bedrooms and bathroom. Pt plans to use the stairs at discharge Home Environment Standard Height Toilet,Tub/ Shower Doors Home Equipment Hospital Bed Employment Status Unemployed Additional Social History Comment Pt's spouse, Jolynn, is a retail general manager who can flex his hours. He plans to be home as needed during recovery. M2 PT-IP Current Condition Start: 10/17/19 13:14 Freq: NEEDED Status: Active Protocol: Document 10/18/19 10:30 [facility] (Rec: 10/18/19 10:50 [facility] [id number]) Physical Therapy Current Condition Current Condition Evaluation Date 10/18/19 Treatment Diagnosis C3-6 ACDF, impaired mobility Precautions Cervical Spine Precautions Soft Collar for Comfort,No Heavy Lifting,Log Roll Brace soft collar for comfort only, recommended for OOB activity. Weight Bearing Status Weight Bearing Status Full Weight Bearing M3 PT-IP Subjective Start: 10/17/19 13:14 Freq: NEEDED Status: Active Protocol: Document 10/18/19 10:30 [facility] (Rec: 10/18/19 10:50 AW [id number]) Subjective Physical Therapy Visit Type Type Initial Evaluation Visit Start Time 09:45 Visit Stop Time 10:30 Total Visit Minutes 45 Number of ONCOLOGY RADIATION PHYSICIAN Visits 0 Physical Therapy Visit Comments Patient Comments Pt has been up in the room independently but is willing to mobilize with PT. Her main concern is swelling and difficulty swallowing. Patient Goals To go home with spouse assist Therapy Pain Assessment Pain When Pain Assessed During Mobility Pain Present Pain Present Pain Reported Location Neck Intensity 4 Scale Used 4/10 at rest; unchanged with mobility Pain Management Techniques Apply Cold,Re-positioning, Timing of Activity with Medications M4 PT-IP Mobility and Gait Start: 10/17/19 13:14 Freq: NEEDED Status: Active Protocol: Document 10/18/19 10:30 [facility] (Rec: 10/18/19 10:50 AW [id number]) PT-Bed Mobility Assessment Rolling Type of Rolling Log Rolling Level of Assist Standby Assistance Supine to Sit Supine to Sit Independent Sit to Supine Sit to Supine Independent Scooting Scooting to Edge of Bed Independent Scooting Up and Down in Bed Independent PT-Transfer Assessment Sit to and From Stand Sit to and from Stand Independent Equipment Transfer Assistive Device Gait Belt Orthotic/Prosthetic Devices or Brace: Yes Transfers Transfer Destination Bed Transfer Technique pt ambulated without AD Transfer Ability Level of Assist Independent Comments Mobility Comments Pt required no assist for bed mobility or transfers with soft collar donned. She demonstrated good safety awareness. Gait Assessment Gait Gait Assistance Required: Standby Assistance Distance (Feet) 275 Able to Maintain Weight Bearing Status Yes During Gait Assistive Devices Assistive Device Gait Belt Gait Deviations General Gait Pattern Decreased Stride Length, Decreased Feet Clearance Factors Limiting Gait Function Factors Limiting Gait Function Decreased Activity Tolerance, Decreased Strength,Pain Comments Gait Comments Pt asymptomatic during ambulation. SBA provided due to pain medications and IV management but pt demonstrated good safety awareness with ability to navigate obstacles appropriately. Stair Climbing Assessment Evaluation Level of Assist On Stairs Standby Assistance Devices Stair Climbing Assistive Devices Right Railing Technique/Endurance Stair Climbing Direction Ascend and Descend Stair Climbing Technique Step Over Step Number of Steps Climbed 3 Query Text: Stair Climbing Set # Repetitions (reps) 5 Comments Stair Climbing Comments Pt educated to use hand rail at all times and to feel her way with her feet as needed due to lower visual field being restricted by soft collar. She required no more than SBA and demonstrated good balance and good technique. PT-Balance Assessment Sitting Balance and Reactions Static Sitting Balance Ability Normal Dynamic Sitting Balance Ability Normal Standing Balance and Reactions Static Standing Balance Ability Good Dynamic Standing Balance Ability Good Device Used none M5 PT-IP Objective Assessments Start: 10/17/19 13:14 Freq: NEEDED Status: Active Protocol: Document 10/18/19 10:30 [facility] (Rec: 10/18/19 10:50 AW [id number]) Orientation Orientation/Cognition Level of Alertness Alert Orientation Name,Day of Week,Place, Situation Language Function Ability No Deficits Noted Safety Awareness Understands Safety Issues Memory Description No Deficits Noted Gross Range of Motion Upper Extremity ROM Assessment Left Impaired Impairments L shoulder flexion limited to ~120 degrees Lower Extremity ROM Assessment Within Functional Limits Strength Upper Extremity Strength Assessment Left Impaired Lower Extremity Strength Assessment Left Impaired Comments Strength Comments Grossly R 4+/5; L 4-/5 Coordination Assessment Gross Coordination Gross Coordination WNL Sensation Assessment Sensation Gross Sensation WNL M6 PT-IP Treatment Start: 10/17/19 13:14 Freq: NEEDED Status: Active Protocol: Document 10/18/19 10:30 [facility] (Rec: 10/18/19 10:50 AW [id number]) Physical Therapy Treatment Education Education Provided Precautions,Post-Op Packet, Safety Brace Education Donning,[place],Patient, Caregiver Other Treatments Other Treatment Performed Pt and spouse educated on soft collar management with mirror for visual feedback. Spouse able to return demonstrate donning and doffing. Pt educated on post-op precautions including avoidance of heavy lifting and extremes of cervical range of motion. M7 PT-IP Assessment and Plan Start: 10/17/19 13:14 Freq: NEEDED Status: Active Protocol: Document 10/18/19 10:30 [facility] (Rec: 10/18/19 10:50 AW [id number]) PT Summary Assessment and Plan Potential Rehabilitation Potential Excellent Status of Condition at Evaluation Evolving Summary Impairments Pain,ROM,Strength,Gait, Activity Tolerance Progress Towards Goals Safe For Discharge Assessment Summary Daisy is a 59 yo woman seen for PT evaluation on POD1 following ACDF. PLOF: Pt was independent in all regards but could not work due to pain. CLOF: Pt was independent with bed mobility and transfers; she required SBA for gait and stairs but demonstrated excellent safety awareness. Concerns regarding swallow remain and will be addressed by FIELD SERVICE COORDINATOR. PT deems her safe for discharge to home environment with spouse assist and outpatient PT once medically stable and once swallow function is addressed. Frequency of Treatment Frequency Of Treatment Discharge Recommendations To Nursing Amount of Assist Needed Independent Discharge Recommendations PT Discharge Recommendations Home with Assistance, Outpatient PT
[2019-10-18] MEDS: DEXAMETHASONE 4 MG/ML VIAL IV (11:11)
--- NOTE | 2019-10-18 11:53 | PC.NURSE ---
Pt just given 2mg of po dilaudid and able to swallow. Pain was 8/10. Prior patient had 4mg of iv decadron. This is her second dose. She is tolerating 7-up.
[2019-10-18 12:05] VITALS: BP 143/63; PULSE 71; RESP 17; TEMP 36.7; O2SAT 99
--- NOTE | 2019-10-18 15:04 | ST.IPCSEOM ---
Speech-Language Pathology Swallow Evaluation FRUIT CHECKER Clinical Swallow Evaluation Start: 10/18/19 14:56 Freq: Status: Active Protocol: Document 10/18/19 14:56 [facility] (Rec: 10/18/19 15:04 [facility] [id number]) Clinical Swallow Evaluation Session Time Total Visit Minutes 30 Setting Assessment Location Acute Care Visit Type Note Type Initial Evaluation Patient Information History Patient s/p ACDF sx day 1. Swallow evaluation orders put in by MD due to patient's complaints of inability to swallow. Patient had one dose of steroids last night which she said improved her swallowing, but awoke this morning with worsening symptoms and inability to swallow. Subjective Observations Patient seen on two occasions today- once this AM and later this afternoon at 1 following a second dose of steroids. Evaluation Liquids Trialed Ice Chips,Thin Solids Trialed Puree,Dysphagia Mechanical Oral Impairment WNL Oral Phase Comments No impairments Pharyngeal Phase Comments Severe post-surgical dysphagia this AM. After dose of steroids, patient reported improvement in swallowing function and was able to consume broth for lunch. Trials of thin liquids via straw and puree textures were consumed without difficulty or overt s/sx of aspiration. Patient experiencing increased belching with PO intake, though reports she belches frequently at baseline. Trial of diced peaches resulted in coughing and patient reported difficulty with mixed consistencies. Verbal and written education provided regarding puree diet and advancing as tolerated. Compensatory strategies discussed included effortful swallow, alternating bites/ sips, slow rate and pills in carrier. Findings Rehabilitation Potential Good Impressions Suspect post surgical dysphagia to improve daily. Recommended patient follow up with MD if symptoms of dysphagia persist beyond 2-3 weeks. Written education provided. Diet Recommendations Liquids Order Thin Diet Order Dysphagia Blenderized Medication Recommendations As Tolerated Aspiration Precautions Recommended Precautions Upright at 90 Degrees, Alternate Liquids/Solids,Small Bites/Sips,Effortful Swallow Treatment Plan Placement Recommendations after Home Discharge Appropriate for Therapy No Therapy Recommendations No further speech therapy warranted at this time.
[2019-10-18 15:50] VITALS: BP 154/56; PULSE 76; RESP 19; TEMP 36.4; O2SAT 98
[2019-10-18] MEDS: GABAPENTIN 300 MG CAPSULE PO (21:12)
[2019-10-18 22:05] VITALS: BP 148/72; PULSE 66; RESP 16; TEMP 36.6; O2SAT 99
[2019-10-18] MEDS: ACETAMINOPHEN 325 MG TABLET 650 MG PO (23:56)
[2019-10-19 00:20] VITALS: BP 148/75; PULSE 67; RESP 18; TEMP 36.6; O2SAT 98
[2019-10-19] MEDS: HYDROMORPHONE 2 MG TABLET PO ×3 (00:21→10:47)
[2019-10-19] MEDS: BENZOCAINE/MENTHOL 1 LOZ PKT 1 EACH PO (05:24)
[2019-10-19 05:29] VITALS: BP 127/64; PULSE 74; RESP 17; TEMP 36.4; O2SAT 97
--- NOTE | 2019-10-19 05:43 | PC.NURSE ---
Pt doing better; reports her neck pain as low at 3-4 out of 10 but reports swallowing pain 10 out of 10. Pt states the Cepacol lozenge has greatly helped her this shift with the swallowing difficulties. No issues with swallowing pills.
[2019-10-19 07:50] VITALS: BP 126/68; PULSE 63; RESP 16; TEMP 36.6; O2SAT 97
--- NOTE | 2019-10-19 08:18 | PM.DS.1 ---
History of Present Illness History of Present Illness Date Patient Seen: 10/19/19 Time Patient Seen: 07:30 Chief complaint: [id number] Narrative: Patient has been having chronic neck pain and worsening cervical radiculopathy. Patient failed multiple conservative management with worsening pain weakness and numbness in her upper extremity. Patient has been having difficulty performing activity of daily living. After discussing risks benefits of treatment options, patient elected proceed with surgery. Patient states swallowing has greatly improved since yesterday. Complains of tension in neck. She feels comfortable about going home. Mobilizing well with PT/OT. Patient denies fever, chills, numbness tingling, chest pain, shortness of breath, urinary/bowel incontinence. Discharge Providers Provider Date of admission: 10/17/19 06:19 Discharge Date: 10/19/19 Primary care physician: Lou Chavarria DO Consults: 10/17/19 12:46 Consult to Occupational Therapy Evaluate & Treat Comment: Physician Instructions: Evaluate and treat Consult to Physical Therapy Evaluate & Treat Comment: Physician Instructions: Evaluate and Treat 10/18/19 08:02 Consult to Speech Therapy Evaluate & Treat Comment: DAMARIS Physician Instructions: Evaluate and treat Discharge provider: Jerry Moore PA-C Summary Hospital Course Discharge Diagnosis: s/p ACDF osteopenia intermittent chest pain serum elevated calcium history of glucose sensitivity abnormal mammogram of both breasts spinal stenosis lumbar migraine with aura and without status migrainosus, not intractable Hospital Course: Patient admitted to hospital s/p ACDF with Dr. Kwong. POD #2 patient was ready for discharge home. Hospital course was notable for difficulty swallowing, which resolved prior to discharge. Patient was given 2 doses of dexamethasone, lozenges and had a swallow evaluation which recommended a puree diet. Patient will go home with Jolynn Toledo who will be their support person. Pain well controlled with tylenol and dilaudid. Patient was given prescription of dilaudid for home. Patient was mobilizing with PT/OT prior to discharge. Patient was voiding and eating without difficulty or assistance prior to discharge. Status at Discharge Cognitive/behavioral status at discharge: oriented Functional status at discharge: independent ambulation Overall status at discharge: patient is progressing back to baseline Time Spent with Patient Time spent: Less than 30 minutes Exam Vital Signs (past 8 hours): - 10/19/19 00:20 10/19/19 05:29 Temperature 97.9 F 97.6 F Pulse Rate 67 74 Respiratory Rate 18 17 Blood Pressure 148/75 H 127/64 Pulse Oximetry 98 97 Oxygen Delivery Method Nasal Cannula Oxygen Flow Rate 0 Narrative Exam Narrative: 59 year old female is sitting comfortably upright in bed, in no apparent distress. A&Ox3. Dressing CDI on anterior neck. Sensory function grossly intact to light touch in UE b/l. Radial pulse 2+ b/l. Motor strength 5/5 UE b/l. SCDs in place. Discharge Plan Discharge Plan Patient Disposition: Home Discharge orders & Medications Prescriptions: New naproxen 500 mg tablet 500 mg PO BID Qty: 60 RF: 0 hydromorphone [Dilaudid] 2 mg tablet 2 mg PO Q6H Qty: 40 RF: 0 Continued Shingrix (PF) 50 mcg/0.5 mL suspension for reconstitution 0.5 ml IM ONCE Qty: 1 RF: 0 gabapentin 300 mg capsule 300 mg PO BID PRN (Reason: Pain, Moderate) RF: 0 rizatriptan [Maxalt-APPEALS REPRESENTATIVE] 10 MG tablet,disintegrating 10 mg PO PRN PRN (Reason: Migraines) Qty: 0 RF: 0 potassium chloride 10 mEq tablet extended release 10 meq PO DAILY RF: 0 metoprolol tartrate 25 mg tablet 25 mg PO DAILY RF: 0 alendronate 35 mg tablet 35 mg PO QWEEK Qty: 12 RF: 1 acetaminophen 325 mg Tablet 650 mg PO Q6HR PRN (Reason: Pain, Mild (1-3)) Qty: 30 RF: 0 Discontinued ibuprofen 200 mg Tablet 4 tab PO DAILY PRN (Reason: pain) RF: 0 Follow up/Referrals: Brooke Kwong MD [Physician] - Lou Chavarria DO [Primary Care Provider] - Diet/Activity/Treatments Diet: Diet as Tolerated Diet comment: Speech therapist recommends puree diet for swallowing difficulty Activity: No excessive bending, twisting, lifting Cold/Heat Therapy: Continue cold therapy as needed Skin/Wound/Dressing Care Report to your healthcare provider any signs of infection, such as:: chills, fever, increased pain, unusual drainage and unusual redness Dressing: keep dressing dry. if saturated, contact office for dressing change Visit Report/Discharge Packet Stand Alone Forms: Surgery Discharge Discharge Data Primary Care Provider: Lou Chavarria
[2019-10-19] MEDS: DOCUSATE 100 MG CAPSULE PO (08:27)
[2019-10-19] MEDS: ACETAMINOPHEN 325 MG TABLET 650 MG PO (08:27)
[2019-10-19] MEDS: METOPROLOL IR 25 MG TABLET PO (08:27)
--- NOTE | 2019-10-19 10:20 | PC.NURSE ---
Pt is going to discharge home today at 11am. She was given tylenol for pain and has been swallowing pills and fluids well. Dressing to anterior neck changed after shower. in room and will be patients ride home.
== END 2019-10-19 11:01 | disposition home or self-care (01) | DRG 473 ==
PROVIDERS: Admitting Provider Orthopaedic Surgery Orthopaedic Surgery of the Spine; PCP Family Medicine; Visit Provider Orthopaedic Surgery Orthopaedic Surgery of the Spine
PROC: 0RG20A0 Fusion of 2 or more Cervical Vertebral Joints with Interbody Fusion Device, Anterior Approach, Anterior Column, Open Approach (ICD-10-PCS; principal; 2019-10-17 07:45)
DX: M48.02 Spinal stenosis, cervical region (principal); M43.12 Spondylolisthesis, cervical region; I10 Essential (primary) hypertension
CPT/HCPCS: 72040; 76000; 92610; 97162; 97165; 97530; 97535; C1776; J0131; J1100; J1170; J2405; J2704; J3010

== ENCOUNTER → 2020-01-23 11:38 | Outpatient (CLI) | payer OTHER, SELFPAY ==
[2019-10-17 13:19] VITALS: BMI 21.2
--- NOTE | 2020-01-23 | DI.MG.S_ITS ---
BILATERAL DIGITAL SCREENING MAMMOGRAM 3D/2D WITH CAD: 01/23/2020 CLINICAL: Routine screening. Comparison is made to exams dated: 01/12/2019 mammogram, 01/06/2019 mammogram, 12/04/2017 mammogram, and 11/11/2016 mammogram - [facility]. The tissue of both breasts is extremely dense, which lowers the sensitivity of mammography. Current study was also evaluated with a Computer Aided Detection (CAD) system. There are benign calcifications in both breasts. No significant masses, calcifications, or other findings are seen in either breast. There has been no significant interval change. IMPRESSION: There is no mammographic evidence of malignancy. A 1 year screening mammogram is recommended. This exam was interpreted at Station ID: [id number]. NOTE: For mammograms, a report in lay terms will be sent to the patient. Approximately 15% of breast malignancies will not be visualized mammographically. In the management of a palpable breast mass, a negative mammogram must not discourage biopsy of a clinically suspicious lesion. Electronically Signed By: Lexa hua/lucas:01/23/2020 14:19:50 letter sent: Normal Exam ACR BI-RADS Category 2: Benign Finding(s) [id number]
== END ==
PROVIDERS: PCP Family Medicine; Referring Provider Family Medicine; Visit Provider Family Medicine
DX: Z12.31 Encounter for screening mammogram for malignant neoplasm of breast (principal)
CPT/HCPCS: 77063; 77067

== ENCOUNTER → 2020-03-12 11:46 | Outpatient (CLI) | payer OTHER, SELFPAY ==
[2019-10-17 13:19] VITALS: BMI 21.2
--- NOTE | 2020-03-12 | DI.CT.S_ITS ---
PROCEDURE: CT CERVICAL SPINE WO CON INDICATIONS: Arthrodesis status TECHNIQUE: Noncontrast 3 mm thick sections acquired from the skull base to the T4 level. Sagittal and coronal reformats were then constructed. For radiation dose reduction, the following was used: automated exposure control, adjustment of mA and/or kV according to patient size. COMPARISON: None. FINDINGS: Image quality: Excellent. Bones: No fractures or dislocations. Visualized superior ribs are intact. Anterior fixation hardware is seen at the C3-C6 levels. The fusion plate appears well seated. The screws are well placed. Disc spacers are seen at C3-C4, C4-C5, and C5-C6. No findings of hardware failure or hardware loosening are seen. The disc heights are well-preserved. Mild posterior endplate osteophytes can be seen at C5-C6. Soft tissues: Prevertebral soft tissues are normal in thickness. No paravertebral hematomas. No apical pneumothoraces. IMPRESSION: Anterior fixation hardware C3-C6, without postoperative complication seen. Dictated by: George Lowry M.D. on 03/12/2020 at 11:39 Approved by: George Lowry M.D. on 03/12/2020 at 11:41
== END ==
PROVIDERS: PCP Family Medicine; Referring Provider Orthopaedic Surgery Orthopaedic Surgery of the Spine; Visit Provider Orthopaedic Surgery Orthopaedic Surgery of the Spine
DX: Z09 Encounter for follow-up examination after completed treatment for conditions other than malignant neoplasm (principal); Z98.1 Arthrodesis status
CPT/HCPCS: 72125

== ENCOUNTER → 2020-05-08 10:13 | Outpatient (CLI) | payer OTHER, SELFPAY ==
[2019-10-17 13:19] VITALS: BMI 21.2
--- NOTE | 2020-05-08 10:18 | DI.CT.S_ITS ---
PROCEDURE: CT LUMBAR SPINE WO CON INDICATIONS: Spinal stenosis, lumbar region w/o neurogenic claudication TECHNIQUE: Noncontrast 3 mm thick sections acquired from the T12 level to the sacrum. Sagittal and coronal reformats were constructed. In this patient, 3-D reformatted images were also performed. For radiation dose reduction, the following was used: automated exposure control. COMPARISON: [facility], MR, L-SPINE WITHOUT CONTRAST, 04/23/2011, 8:11. [facility], CR, L-SPINE 2-3 VIEWS, 03/11/2011, 11:59. [facility], MR, L-SPINE WITHOUT CONTRAST, 03/06/2008, 11:50. [facility], CR, L-SPINE 2-3 VIEWS, 10/26/2017, 17:10. FINDINGS: Image quality: There is streak artifact associated with the metallic hardware. Bones: No acute vertebral body compression fractures. No suspicious lytic or blastic bony lesions. Central spinal caliber is of normal overall caliber. No pars defects. Postoperative changes are seen, bilateral pedicle screws at L3, L4, and L5. The right screw at L5 protrudes slightly beyond the anterior cortex, as on series 2 image 65. The screws otherwise appear well placed. Vertical fixation rods are seen. Disc spacers are seen at L3-L4 and L4-L5. No findings of hardware failure or hardware loosening are seen. There has been removal of portions of the posterior elements. Mild levoconvex scoliotic curvature is noted. Minimal anterolisthesis is seen at the L2-L3 level. T12-L1: No significant abnormality is seen. L1-L2: Level within normal limits. L2-L3: The disc height is well preserved. Mild to moderate disc bulge is seen. Moderate bilateral neural foraminal narrowing is seen. Moderate central canal narrowing is seen. Compared to 2011, these degenerative changes have progressed. L3-L4: Postoperative changes are seen at this level. Mild to moderate disc bulge is seen. No significant neural foraminal or central canal narrowing can be seen. L4-L5: There are postoperative changes seen at this level. Mild disc bulge is seen. There is a moderate bilateral neural foraminal narrowing seen. No significant central canal narrowing is seen. L5-S1: No significant abnormality is seen. Soft tissues: No retroperitoneal masses or hematomas. Visualized aorta is normal in caliber. IMPRESSION: L3-L5 postoperative change, without findings of hardware failure or hardware loosening. The degenerative change at L2-L3 has progressed compared to the 2011 MRI. Dictated by: George Lowry M.D. on 05/08/2020 at 9:45 Approved by: George Lowry M.D. on 05/08/2020 at 9:51
== END ==
PROVIDERS: PCP Family Medicine; Referring Provider Orthopaedic Surgery Orthopaedic Surgery of the Spine; Visit Provider Orthopaedic Surgery Orthopaedic Surgery of the Spine
DX: M48.061 Spinal stenosis, lumbar region without neurogenic claudication (principal); M47.816 Spondylosis without myelopathy or radiculopathy, lumbar region; Z98.1 Arthrodesis status
CPT/HCPCS: 72131

== ENCOUNTER → 2020-05-25 09:29 | Outpatient (CLI) | payer OTHER, SELFPAY ==
[2019-10-17 13:19] VITALS: BMI 21.2
[2020-05-25 10:51] LABS: Add Manual Diff / Slide Review NO; Basophils Absolute Auto 0 /uL (0-100); Eosinophils Absolute Auto 100 /uL (0-450); Eosinophils Percent Auto 3.4 % (2-4); Hemoglobin 13.9 g/dL (12.0-16.0); Lymphocytes Absolute Auto 1800 /uL (1100-4500); Lymphocytes Percent Auto 44.1 % (25-40); Mean Corpuscular HGB Conc 33.1 % (30-36); Mean Corpuscular Hemoglobin 31.8 PG (26-34); Mean Corpuscular Volume 96.1 fL (80-100); Monocytes Absolute Auto 400 /uL (0-900); Monocytes Percent Auto 8.6 % (3-14); Neutrophils Absolute Auto 1700 /uL (1500-7000); Neutrophils Percent Auto 42.9 % (50-75); Platelet Count 280 X10^3/uL (150-400); Red Blood Cell Count 4.37 X10^6/uL (4.0-5.2); White Blood Cell Count 4.1 X10^3/uL (4.5-11.0)
[2020-05-25 11:34] LABS: Alanine Aminotransferase 18 IU/L (<35); Albumin 4.7 g/dL (3.5-5.0); Albumin Globulin Ratio 1.7 (1.0-2.8); Alkaline Phosphatase 79 U/L (38-126); Aspartate Aminotransferase 28 IU/L (14-36); BUN Creatinine Ratio 32.8 (6-22); Bilirubin Total 1.4 mg/dL (0.2-1.3); Blood Urea Nitrogen 21 mg/dL (7-17); Calcium 10.4 mg/dL (8.4-10.2); Carbon Dioxide 32 mmol/L (22-32); Chloride 100 mmol/L (98-107); Cholesterol 230 mg/dL (140-199); Estimated Glomerular Filt Rate > 60.0 mL/min (>60); Globulin 2.7 g/dL (1.7-4.1); Glucose 101 mg/dL (70-100); HDL Cholesterol 107 mg/dL (40-60); HEMOLYSIS < 15 (0-50); LDL Cholesterol Calculated 113 mg/dL (<100); Potassium 4.6 mmol/L (3.4-5.1); Sodium 136 mmol/L (137-145); Total Protein 7.4 g/dL (6.3-8.2); Triglycerides 50 mg/dL (35-150)
[2020-05-25 11:51] LABS: Vitamin D 25 Hydroxy (D3) 58.2 ng/mL (30.0-100.0)
== END ==
PROVIDERS: PCP Family Medicine; Referring Provider Family Medicine; Visit Provider Family Medicine
DX: E78.2 Mixed hyperlipidemia (principal); E83.52 Hypercalcemia; M85.80 Other specified disorders of bone density and structure, unspecified site
CPT/HCPCS: 36415; 80053; 80061; 82306; 85025

== ENCOUNTER → 2020-09-01 08:26 | Outpatient (CLI) | payer OTHER, SELFPAY ==
[2019-10-17 13:19] VITALS: BMI 21.2
[2020-09-03 05:56] LABS: COVID19 Sendout Not Detected (Not Detect)
== END ==
PROVIDERS: PCP Family Medicine; Visit Provider Physician Assistant
DX: Z11.59 Encounter for screening for other viral diseases (principal)
CPT/HCPCS: 87635

== ENCOUNTER → 2020-12-05 13:28 | Outpatient (CLI) | payer OTHER, SELFPAY ==
[2019-10-17 13:19] VITALS: BMI 21.2
[2020-12-05 14:44] LABS: COVID19 -Nasal RAPID Negative (Negative)
== END ==
PROVIDERS: PCP Family Medicine; Visit Provider Nurse Practitioner
DX: Z20.822 Contact with and (suspected) exposure to COVID-19 (principal)
CPT/HCPCS: 87635

== ENCOUNTER → 2020-12-07 08:14 | Outpatient (CLI) | payer OTHER, SELFPAY ==
[2019-10-17 13:19] VITALS: BMI 21.2
--- NOTE | 2020-12-07 09:10 | PM.TREADMILL ---
Cardiac Stress Test Report Referral & Results Date Patient Seen: 12/07/20 Time Patient Seen: 09:00 Requesting provider: Billy Rashid Indication: Chest discomfort Rest ECG: Normal sinus rhythm Procedure Note: Today following both written and verbal informed consent, the patient was exercised according to a standard See protocol. The patient exercised for a total of 10 minutes 12 seconds achieving a maximum heart rate of around 140. Patient's maximum systolic blood pressure was 152. This was an estimated 12.8 METs. Normal hemodynamic response to exercise. Excellent exercise capacity (DENNIS <-20% on active scale). Overwhelming static interference made EKG interpretation difficult during exercise, but rhythm appeared stable. Immediate post exercise EKG with normal sinus rhythm with no abnormal beats. BP/HR normalized rapidly after exercise. No signs or symptoms of angina, but patient complained of right anterior thigh pain at peak exercise. Impression: Low probability for ischemia. Rogel treadmill score of 10 is correlated with 97% 5 year survival rate from cardiac causes of mortality. Please note: Actual ECG tracings can be found in the PACS system.
== END ==
PROVIDERS: PCP Family Medicine; Referring Provider Family Medicine; Visit Provider Family Medicine
DX: R07.89 Other chest pain (principal); I10 Essential (primary) hypertension
CPT/HCPCS: 93016; 93017; 93018

== ENCOUNTER → 2021-02-07 10:15 | Outpatient (CLI) | payer OTHER, SELFPAY ==
[2019-10-17 13:19] VITALS: BMI 21.2
--- NOTE | 2021-02-07 | DI.MG.S_ITS ---
BILATERAL DIGITAL SCREENING MAMMOGRAM 3D/2D WITH CAD: 02/07/2021 CLINICAL: Routine screening. Comparison is made to exams dated: 01/23/2020 mammogram, 01/06/2019 mammogram, and 12/04/2017 mammogram - [facility]. The tissue of both breasts is extremely dense, which lowers the sensitivity of mammography. Current study was also evaluated with a Computer Aided Detection (CAD) system. There are benign vascular calcifications in both breasts. No significant masses, calcifications, or other findings are seen in either breast. There has been no significant interval change. IMPRESSION: BENIGN There is no mammographic evidence of malignancy. A 1 year screening mammogram is recommended. This exam was interpreted at Station ID: [id number]. NOTE: For mammograms, a report in lay terms will be sent to the patient. Approximately 15% of breast malignancies will not be visualized mammographically. In the management of a palpable breast mass, a negative mammogram must not discourage biopsy of a clinically suspicious lesion. Electronically Signed By: Jerry Valladares acr/penrad:02/07/2021 12:19:49 letter sent: Normal Exam ACR BI-RADS Category 2: Benign Finding(s) 3342F
== END ==
PROVIDERS: PCP Family Medicine; Referring Provider Family Medicine; Visit Provider Family Medicine
DX: Z12.31 Encounter for screening mammogram for malignant neoplasm of breast (principal)
CPT/HCPCS: 77063; 77067

== ENCOUNTER → 2021-02-27 13:27 | Outpatient (CLI) | payer OTHER, SELFPAY ==
[2019-10-17 13:19] VITALS: BMI 21.2
--- NOTE | 2021-02-27 13:31 | DI.RAD.S_ITS ---
PROCEDURE: XR HAND RT MIN 3V INDICATIONS: Fall, hand pain TECHNIQUE: 3 views of the hand(s) acquired. COMPARISON: None. FINDINGS: Bones: No fractures or dislocations. Carpal bones are normally aligned. No suspicious bony lesions. Osteoarthritic changes are noted throughout right hand and wrist joints. Soft tissues: No suspicious soft tissue calcifications. IMPRESSION: No gross acute right hand fracture or dislocation is seen. 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 Dictated by: Vipul Aguilar M.D. on 02/27/2021 at 13:05 Approved by: Vipul Aguilar M.D. on 02/27/2021 at 13:06
== END ==
PROVIDERS: PCP Family Medicine; Referring Provider Student in an Organized Health Care Education/Training Program; Visit Provider Student in an Organized Health Care Education/Training Program
DX: M79.641 Pain in right hand (principal); M19.041 Primary osteoarthritis, right hand; M19.031 Primary osteoarthritis, right wrist
CPT/HCPCS: 73130

== ENCOUNTER → 2021-05-13 10:24 | Outpatient (CLI) | payer OTHER, SELFPAY ==
[2019-10-17 13:19] VITALS: BMI 21.2
[2021-05-13 11:07] LABS: Add Manual Diff / Slide Review NO; Basophils Absolute Auto 0 /uL (0-100); Basophils Percent Auto 0.8 % (0-2); Eosinophils Absolute Auto 200 /uL (0-450); Eosinophils Percent Auto 3.9 % (2-4); Hematocrit 41.1 % (36-46); Hemoglobin 13.8 g/dL (12.0-16.0); Lymphocytes Absolute Auto 1800 /uL (1100-4500); Lymphocytes Percent Auto 41.2 % (25-40); Mean Corpuscular HGB Conc 33.5 % (30-36); Mean Corpuscular Hemoglobin 31.6 PG (26-34); Mean Corpuscular Volume 94.4 fL (80-100); Monocytes Absolute Auto 300 /uL (0-900); Monocytes Percent Auto 7.6 % (3-14); Neutrophils Absolute Auto 2000 /uL (1500-7000); Neutrophils Percent Auto 46.5 % (50-75); Platelet Count 324 X10^3/uL (150-400); Red Blood Cell Count 4.35 X10^6/uL (4.0-5.2); Red Cell Distribution Width 13.5 % (11.6-14.8); White Blood Cell Count 4.4 X10^3/uL (4.5-11.0)
[2021-05-13 11:54] LABS: Alanine Aminotransferase 26 IU/L (<35); Albumin Globulin Ratio 1.3 (1.0-2.8); Alkaline Phosphatase 61 U/L (38-126); Aspartate Aminotransferase 41 IU/L (14-36); Bilirubin Total 0.9 mg/dL (0.2-1.3); Blood Urea Nitrogen 15 mg/dL (7-17); Calcium 9.5 mg/dL (8.4-10.2); Carbon Dioxide 31 mmol/L (22-32); Chloride 101 mmol/L (98-107); Cholesterol 195 mg/dL (140-199); Estimated Glomerular Filt Rate > 60.0 mL/min (>60); Glucose 97 mg/dL (70-100); HDL Cholesterol 78 mg/dL (40-60); HEMOLYSIS < 15 (0-50); LDL Cholesterol Calculated 106 mg/dL (<100); Potassium 3.9 mmol/L (3.4-5.1); Sodium 138 mmol/L (137-145); Triglycerides 55 mg/dL (35-150)
[2021-05-13 12:09] LABS: Vitamin D 25 Hydroxy (D3) 75.9 ng/mL (30.0-100.0)
[2021-05-13 12:31] LABS: TSH w/ Reflex to FT4 1.71 uIU/mL (0.47-4.68)
== END ==
PROVIDERS: PCP Family Medicine; Referring Provider Family Medicine; Visit Provider Family Medicine
DX: E55.9 Vitamin D deficiency, unspecified (principal); E78.2 Mixed hyperlipidemia; E83.52 Hypercalcemia; I10 Essential (primary) hypertension; M85.89 Other specified disorders of bone density and structure, multiple sites
CPT/HCPCS: 36415; 80053; 80061; 82306; 84443; 85025

== ENCOUNTER → 2021-06-16 10:28 | Outpatient (CLI) | payer OTHER, SELFPAY ==
[2019-10-17 13:19] VITALS: BMI 21.2
--- NOTE | 2021-06-16 10:29 | DI.RAD.S_ITS ---
PROCEDURE: XR KNEE RT 3V INDICATIONS: fall on R knee TECHNIQUE: 3 views of the knee were acquired. COMPARISON: None. FINDINGS: Bones: No fractures or dislocations. No suspicious bony lesions. Soft tissues: No joint effusion. No suspicious soft tissue calcifications. IMPRESSION: No acute fracture. No osseous lesion. If symptoms and/or clinical suspicion for pathology persist, further assessment with repeat, or advanced imaging (e.g., CT, MRI, or bone scan) may be helpful for further assessment. Dictated by: Abhi Tinoco M.D. on 06/16/2021 at 9:43 Approved by: Abhi Tinoco M.D. on 06/16/2021 at 9:43
== END ==
PROVIDERS: PCP Family Medicine; Referring Provider Student in an Organized Health Care Education/Training Program; Visit Provider Student in an Organized Health Care Education/Training Program
DX: M25.561 Pain in right knee; S89.91XA Unspecified injury of right lower leg, initial encounter; W19.XXXA Unspecified fall, initial encounter
CPT/HCPCS: 73562

== ENCOUNTER → 2021-07-25 16:55 | Outpatient (CLI) | payer OTHER, SELFPAY ==
[2019-10-17 13:19] VITALS: BMI 21.2
[2021-07-25 18:02] LABS: Hematocrit 39.4 % (36-46); Hemoglobin 13.3 g/dL (12.0-16.0); Mean Corpuscular HGB Conc 33.8 % (30-36); Mean Corpuscular Hemoglobin 32.7 PG (26-34); Mean Corpuscular Volume 96.7 fL (80-100); Platelet Count 282 X10^3/uL (150-400); Red Blood Cell Count 4.08 X10^6/uL (4.0-5.2); White Blood Cell Count 5.3 X10^3/uL (4.5-11.0)
[2021-07-25 18:15] LABS: BUN Creatinine Ratio 32.7 (6-22); Blood Urea Nitrogen 17 mg/dL (7-17); Calcium 9.6 mg/dL (8.4-10.2); Carbon Dioxide 29 mmol/L (22-32); Chloride 101 mmol/L (98-107); Estimated Glomerular Filt Rate > 60.0 mL/min (>60); Glucose 98 mg/dL (70-100); HEMOLYSIS < 15 (0-50); Potassium 3.8 mmol/L (3.4-5.1); Sodium 137 mmol/L (137-145)
[2021-07-25 18:45] LABS: TSH w/ Reflex to FT4 2.03 uIU/mL (0.47-4.68)
[2021-07-25 19:03] LABS: Vitamin B12 Reflex MMA if <400 967 pg/mL (239-931)
== END ==
PROVIDERS: PCP Family Medicine; Referring Provider Nurse Practitioner Family; Visit Provider Nurse Practitioner Family
DX: R53.83 Other fatigue (principal)
CPT/HCPCS: 36415; 80048; 82607; 84443; 85027

== ENCOUNTER → 2022-01-02 10:13 | Outpatient (CLI) | payer OTHER, SELFPAY ==
[2019-10-17 13:19] VITALS: BMI 21.2
--- NOTE | 2022-01-02 | DI.RAD.S_ITS ---
PROCEDURE: FL BARIUM SWALLOW W SPEECH INDICATIONS: Other dysphagia COMPARISON: None. TECHNIQUE: Examination was conducted in conjunction with speech pathology per standard protocol. In the lateral projection, filming was performed of the patient swallowing. AP projection filming may also be performed with patient swallowing. COMPARISON: FINDINGS: Function: The oral preparatory phase appears normal, with proper containment. The subsequent oral propulsive phase, pharyngeal phase, and esophageal phase of swallowing also appear normal with all proffered substances. No laryngotracheal penetration or aspiration. No pathologic vallecular pooling. Pooling was noted in the vallecula bilaterally which was cleared with repeat swallows. 13 millimeter barium tablet was initially trapped within the left valleculum, but was cleared with repeat swallows of water. Morphology: No cricopharyngeal bar is identified. No cervical esophageal webs. No Zenker's diverticulum. No strictures. Postsurgical changes compatible with ACDF incidentally noted. IMPRESSION: 1. Bilateral vallecular pooling cleared with repeat swallows. 2. Barium tablet initially delayed within the left vallecular but cleared with repeat swallows of water. 3. No stricture or diverticulum. 4. No laryngotracheal penetration or aspiration. Dictated by: Niecy Torres MD, PhD on 01/02/2022 at 12:03 Approved by: Niecy Torres MD, PhD on 01/02/2022 at 12:06
--- NOTE | 2022-01-10 16:45 | ST.SWALLOW ---
Visit Care Team Role Provider Type Milton Randolph DO Primary Care Provider Physician Specialty: Family Practice Address: [address] [place] [address], [id number] Email: Antoni Smith MD Attending Provider Physician Referring Provider Specialty: Ear, Nose, Throat Address: [address] [place] [address], [id number] Email: [email or web address] Modified Barium Swallow Study NOTEMAN Modified Barium Swallow Study Start: 01/10/22 11:50 Freq: Status: Active Protocol: Document 01/02/22 11:51 LNK (Rec: 01/10/22 12:08 LNK [id number]) Modified Barium Swallow Study Total Time Visit Start Time 10:30 Visit Stop Time 11:00 Total Visit Minutes [address] Smith, ENT Reason for Referral dysphagia Setting Setting Outpatient Care Patient Information Identification Type Name,Date of Patient History Pt is a 61 year old female with c/o difficulty with swallowing solids. Liquids do not appear to be difficult for her to swallow. Pt reported a medical history of ACDF surgery approximately 3 years ago . Currently, she is also having problems with swallowing, no pain, but food getting stuck, especially hard boiled egg even when it is well chewed She says it feels like a shelf in the middle of her throat where things just sit. Pt was referred to Dr. Smith, who, she stated, indicated all structures to be WFL. Subjective Observations Pt was seated in the fluoroscopy chair with instructions and procedure described for her. Pt indicated she understood and agreed to proceed. Patient Positioning Position View Lat-A/P Imaging Lateral View Textures Administered Trials Presented Thin Liquid via Spoon,Thin Liquid via Cup,O'Neill Liquid via Spoon,O'Neill Liquid via Cup,Pudding Thick Liquid via Spoon,Regular Textures Oral Phase Source: MBSIMP (TM) (C) Bolus Specific Scoring Grid Lip Closure No Impairment (WNL) Tongue Control During Bolus Hold No Impairment (WNL) Bolus Prep/Mastication No Impairment (WNL) Bolus Transport/Lingual Motion No Impairment (WNL) A/P Lingual Propulsion Delay No Oral Residue No Impairment (WNL) Nasal Regurgitation No Additional Oral Phase Observations OME indicated oral structures, strength and ROM to be WNL. DSK was WNL. Oral phase of swallow observed with good mastication, adequate dentition in good health and good bolus control and AP transit. No oral reside post swallows. Pharyngeal Phase Source: MBSIMP (TM) (C) Bolus Specific Scoring Grid Delayed Initiation of Pharyngeal Swallow Yes: Premature to valeculla and pyriform sinuses Tongue Base Strength/Range of Motion Mild Impairment Residue Along the Tongue Base Yes Clearance of Residue Along Tongue Base WFL Laryngeal Elevation Mild Impairment Anterior Hyoid Movement Mild Impairment Epiglottic Range of Motion Minimal Impairment Vallecular Residue Yes Clearance of Vallecular Residue WFL Laryngeal Vestibular Closure No Impairment (WNL) Pharyngeal Stripping Wave Mild Impairment Posterior Pharyngeal Wall Residue Yes Clearance of Posterior Pharyngeal Wall WFL Residue Upper Esophageal Sphincter Opening WFL Residue in the Pyriform Sinuses No Esophageal Clearance Upright Position WFL Pharyngoesophageal Backflow Observed No Additional Pharyngeal Phase Observations Hyolaryngeal elevation was mildly impaired for both laryngeal elevation and hyoid movement. ACDF hardware (C3-C6 ) was observed. There appeared to be an anterior curvature of the pharynx at C-3 near the top of the cervical cage through to the UES. This resulted in significant narrowing of the pharynx between the posterior pharyngeal wall and the epiglottis at rest. Upon initial inversion movement, the epiglottis tip was curved against the posterior pharyngeal wall. With the bolus, the epiglottis inverted to seal the laryngeal vesibule; however, following the swallow, moderate residue of the contrast was noted in the valeculla across all trials. Liquids were noted to have less residual in the valeculla than solids, which needed 2-3 swallows in order to clear. Liquid washes following the pudding thick and cookie trials were more effective in clearing epiglottal residue than dry swallows. Posterior wall contractions/striping was noted to be minimal, possible a result of the ACDF surgery. A/P View Textures Administered Trials Presented Thin Liquid via Cup,Barium Tablet A/P View Observations Pharyngeal Contraction No Impairment (WNL) Vocal Fold Function Good Residue Observed Valleculae Left Esophageal Function WFL Esophageal Clearance Upright Position No Impairment (WNL) Additional Observations A 13mm barium tablet was trialed secondary to the pt reporting that large pills, such as vitamin supplements tend to stick in her throat at the shelf. In the AP position the tablet was was swallowed with water. Initially, the tablet moved into the left vallecula and remained there for 3-4 additional swallows of water, It finally was passed into the esophagus and ultimately through to the LES and into the stomach. Clinical Impressions Dysphagia Type pharyngeal dysphagia secondary to ACDF hardware imposing into the pharynx Findings The pt c/o of foods/solids and large pills sticking in her throat on what she termed a shelf. During the MBSS, the pt's pharynx appeared to be narrowed and curved anteriorly at the level of C-3 near the epiglottis at rest and the top of the ACDF hardware. Pooling of both solid trials and the barium tablet were observed to pool/stay within the valeculla (left side in AP view). It appeared that the the narrowing of the pharynx and reduced pharyngeal wall contraction/stripping negatively impact the passage of the bolus at the C3 level. Once the bolus passes through the narrowed space, the bolus passes to the UES and is swallowed normally. Patient Appropriate for Therapy Yes: Possibly trial different positions for bolus passage (? ) Recommendations Treatment Plan Therapy Recommendations Outpatient Speech Therapy,Base of Tongue Exercises,Other Additional Therapy Recommendations Possibly trial head/neck positions to ease swallow (?) Short Term Goals Pt will become educated re: anatomy and physiology of swallowing, [facility] strategies and/or head neck positions to determine change in pt's swallowing ease Additional Recommendations/Comments It is possible that pt's swallow is determined by her current anatomy. Trial therapy is recommended to determine if ease in swallowing is attainable with strategies, head/neck positions, etc.
== END ==
PROVIDERS: PCP Family Medicine; Referring Provider Otolaryngology; Visit Provider Otolaryngology
DX: R13.19 Other dysphagia (principal)
CPT/HCPCS: 74230; 92611

== ENCOUNTER → 2022-02-10 15:45 | Outpatient (CLI) | payer OTHER, SELFPAY ==
[2019-10-17 13:19] VITALS: BMI 21.2
--- NOTE | 2022-02-10 | DI.MG.S_ITS ---
BILATERAL DIGITAL SCREENING MAMMOGRAM 3D/2D WITH CAD: 02/10/2022 CLINICAL: Routine screening. Comparison is made to exams dated: 02/07/2021 mammogram, 01/23/2020 mammogram, 01/12/2019 mammogram, 01/06/2019 mammogram, and 12/04/2017 mammogram - [facility]. The tissue of both breasts is extremely dense, which lowers the sensitivity of mammography. Current study was also evaluated with a Computer Aided Detection (CAD) system. There are benign vascular calcifications in both breasts. No significant masses, calcifications, or other findings are seen in either breast. There has been no significant interval change. IMPRESSION: BENIGN There is no mammographic evidence of malignancy. A 1 year screening mammogram is recommended. This exam was interpreted at Station ID: [id number]. NOTE: For mammograms, a report in lay terms will be sent to the patient. Approximately 15% of breast malignancies will not be visualized mammographically. In the management of a palpable breast mass, a negative mammogram must not discourage biopsy of a clinically suspicious lesion. Electronically Signed By: Ned montgomery/lucas:02/11/2022 09:40:25 letter sent: Normal Exam ACR BI-RADS Category 2: Benign Finding(s) 3342F
== END ==
PROVIDERS: PCP Family Medicine; Referring Provider Family Medicine; Visit Provider Family Medicine
DX: Z12.31 Encounter for screening mammogram for malignant neoplasm of breast (principal)
CPT/HCPCS: 77063; 77067

== ENCOUNTER → 2022-02-26 13:19 | Outpatient (CLI) | payer OTHER, SELFPAY ==
[2019-10-17 13:19] VITALS: BMI 21.2
--- NOTE | 2022-02-26 13:20 | DI.RAD.S_ITS ---
PROCEDURE: XR LUMBAR SPINE MIN 4V INDICATIONS: BACK PAIN TECHNIQUE: 5 views of the lumbar spine were acquired, including bilateral oblique views. COMPARISON: [facility], CR, XR LUMBAR SPINE 2 OR 3 VIEWS, 01/18/2019, 10:03. CT, CT LUMBAR SPINE WO CON, 05/08/2020, 10:10. [facility], CR, XR LUMBAR SPINE 2-3V, 12/08/2018, 9:25. [facility], RF, LUMBAR SPINE INTERIAMINAR, 10/24/2020, 9:18. FINDINGS: Bones: 4 nonrib-bearing vertebrae are present. There is posterior fusion from L3 through S1. Intervertebral spacers are present. Hardware is intact without evidence of hardware fracture or periprosthetic lucency to suggest loosening. There is approximate 1-2 mm retrolisthesis L3 on L4, unchanged. No vertebral body compression fractures. No suspicious bony lesions. There is moderate foraminal narrowing at L4-5 and L5-S1. Soft tissues: Overlying bowel gas pattern is normal. No suspicious soft tissue calcifications. Oblique images: No pars defects. IMPRESSION: L3 through L5 fusion as above. Dictated by: Mary Reeves M.D. on 02/27/2022 at 11:06 Approved by: Mary Reeves M.D. on 02/27/2022 at 11:10
== END ==
PROVIDERS: PCP Family Medicine; Referring Provider Physical Medicine & Rehabilitation; Visit Provider Physical Medicine & Rehabilitation
DX: M48.061 Spinal stenosis, lumbar region without neurogenic claudication (principal); M48.07 Spinal stenosis, lumbosacral region; M54.9 Dorsalgia, unspecified; Z98.1 Arthrodesis status
CPT/HCPCS: 72110

== ENCOUNTER → 2022-03-25 10:53 | Outpatient (CLI) | payer OTHER, SELFPAY ==
[2019-10-17 13:19] VITALS: BMI 21.2
[2022-03-25 12:11] LABS: COVID19 -Nasal RAPID Negative (Negative)
== END ==
PROVIDERS: PCP Family Medicine; Visit Provider Physical Medicine & Rehabilitation
DX: Z20.822 Contact with and (suspected) exposure to COVID-19 (principal)
CPT/HCPCS: 87635; C9803

== ENCOUNTER 2022-03-27 14:09 | Outpatient (CLI) | payer OTHER, SELFPAY ==
[2019-10-17 13:19] VITALS: BMI 21.2
[2022-03-27] VITALS (9 sets, daily range): BP systolic 114–135; BP diastolic 56–65; PULSE 54–65; RESP 18–20; TEMP 36.1; O2SAT 99–100
--- NOTE | 2022-03-27 15:02 | DI.RAD.S_ITS ---
PROCEDURE: PAIN L/SI FACET INJ/BLK 1STL INDICATIONS: SPONDYLOSIS COMPARISON: [facility], CR, XR LUMBAR SPINE MIN 4V, 02/26/2022, 13:40. FINDINGS: Fluoroscopic spot filming was performed to verify placement of spinal needles on the right at the L2, L3, L5, and S1 levels, as labeled on the films. Appropriate location of the needle tips was confirmed by injection of iodinated contrast. Lower lumbar spine fixation hardware is partially seen. IMPRESSION: Intraprocedural examination demonstrating appropriate positions of the needles. Dictated by: George Lowry M.D. on 03/27/2022 at 16:08 Approved by: George Lowry M.D. on 03/27/2022 at 16:09
[2022-03-27] MEDS: MIDAZOLAM 2 MG/2 ML VIAL IV (15:15)
[2022-03-27] MEDS: IOPAMIDOL 15 ML VIAL 3 ML INJ (15:21)
[2022-03-27] MEDS: BUPIVACAINE 0.5% (PF) VIAL 5 ML INJ (15:22)
[2022-03-27] MEDS: LIDOCAINE 1% 20 ML 5 ML INJ (15:25)
--- NOTE | 2022-03-27 15:36 | PM.PROC.IR.1 ---
Date/Time/Diagnoses Date of procedure: 03/27/22 Time of procedure: 15:36 Pre-procedure diagnosis: 1. FACET ARTHROPATHY Post-procedure diagnosis: same Procedure Notes Procedure: 1. Right L2, L3, L5 and S1 MB BLOCKS LA Indications: Daisy is referred by Dr. Randolph for treatment of Right Axial LBP. Physician: Ian Monroy Total Fluoroscopy time (seconds): 13 Total sedation minutes: 11 Complications: none Procedure in detail & Post-procedure care: DESCRIPTION OF PROCEDURE Fluoroscopically guided, contrast-controlled right L2, L3, L5 and S1 medial branch blocks with 0.5cc of 0.5% Marcaine. Following review of allergy and review of potential side effects and complications, including, but not necessarily limited to, infection, allergic reaction, local tissue breakdown, nerve injury, paralysis, stroke and possible , the patient indicated that the patient understood and agreed to proceed. An informed consent document was signed by the patient, witnessed by a nurse, and placed in the patient's chart. After review of previous anaesthesic history and IV conscious sedation the patient was deemed safe to proceed with today?s procedure with IV conscious sedation as ASA class II designation. Safety time-out was performed to confirm patient ID, procedure to be performed and site of procedure. IV sedation was accomplished with a combination of 4mg of Versed was administered by the RN after DO order, titrated to patient comfort during the course of the procedure while the patient remained responsive to all verbal commands In the prone position, following sterile prep and drape of the lumbar region, the right L2, L3, L5 and S1 anatomical location of the medial branch of the dorsal ramus was identified fluoroscopically. Subsequently an anesthetic skin wheal using 1% lidocaine solution was initiated at each of the anatomical spots. Subsequently then a 22-gauge 3.5-inch spinal needle was atraumatically introduced and advanced under fluoroscopic guidance at each of the corresponding sites at the right L2, L3, L5 and S1 MB. After negative aspiration, 0.2 cc of Isovue 200 was injected, confirming placement without vascular or intrathecal uptake. Subsequently then 0.5 cc of 0.5% Marcaine solution was injected at each of the corresponding sites at the right L2, L3, L5 and S1 medial branch locations. The patient tolerated the procedure well without signs or symptoms of complications. The procedure tolerated the procedure well without signs or symptoms of complications prior to transfer to the recovery area continued monitoring without incident. Post-procedure, the patient was monitored initiating provocative activities to measure the amount of relief from block of the facetogenic pain. The patient reported a VAS of 7 prior to the procedure and a post-procedure VAS of 1. It has been a pleasure to assist in the diagnostic and therapeutic care of your patient. POST OP INSTRUCTIONS The patient was provided with a Pain Log to complete over the next several hours and subsequent days prior to the patient's follow up with the ordering physician. If the patient has director data management relief to the solution applied, then they may be a candidate for medial branch rhizotomy. The patient is aware, was provided, once again, with a Pain Log and will follow up with the referring physician for review and clinical correlation.
== END 2022-03-27 15:54 | disposition home or self-care (01) ==
LOC: RAD 14:10
PROVIDERS: PCP Family Medicine; Referring Provider Physical Medicine & Rehabilitation; Visit Provider Physical Medicine & Rehabilitation
DX: M47.816 Spondylosis without myelopathy or radiculopathy, lumbar region (principal); M47.817 Spondylosis without myelopathy or radiculopathy, lumbosacral region
CPT/HCPCS: 64493; 64494; 64495; 99152; J2250

== ENCOUNTER 2022-05-18 09:49 | Emergency (ER) | payer OTHER, SELFPAY ==
[2019-10-17 13:19] VITALS: BMI 21.2
[2022-05-18 09:58] VITALS: BP 139/67; PULSE 83; RESP 18; TEMP 36.8; O2SAT 100; BMI 21.2
--- NOTE | 2022-05-18 10:17 | ED_ITS ---
HPI - Back Pain/Injury General Chief Complaint: Back Pain/Injury Stated Complaint: Hurt back- has hardware from past surgeries Time Seen by Provider: 05/18/22 09:52 Source: patient Mode of arrival: Ambulatory History of Present Illness HPI Narrative: Patient is a 61-year-old female. Has a longstanding history of lower back pain. Has had surgeries in the past. 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 The middle next week she was helping a friend clean. Afterwards she started to have pain in her lower back which has worsened over the past couple days. She normally has pain into both of her legs but now it is pain in both of her legs. This morning she stated that she was having a hard time starting a stream of urine. She has take it her Flexeril this morning however not her Lyrica. 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) gabapentin 300 mg capsule 300 mg PO BID PRN Pain, Moderate 01/12/19 10/29/21 potassium chloride 10 mEq 10 meq PO DAILY 10/11/19 10/29/21 tablet,extended release Previous Rx's Medication Instructions Recorded acetaminophen 325 mg tablet 650 mg PO Q6HR PRN Pain, Mild 12/10/18 (1-3) #30 tabs naproxen 500 mg tablet 500 mg PO BID inflammation #60 tabs 10/19/19 metoprolol succinate 25 mg 25 mg PO DAILY #90 tabs 06/17/21 tablet,extended release 24 hr alendronate 35 mg tablet 35 mg PO QWEEK #12 tabs 07/26/21 gabapentin 100 mg capsule 200 mg PO TID #180 caps 09/25/21 hydrochlorothiazide 12.5 mg tablet See Rx Instructions .Route 01/28/22 .COMPLEX #90 tabs duloxetine 30 mg capsule,delayed 30 mg PO DAILY #60 caps 03/03/22 release (Cymbalta) cyclobenzaprine 10 mg tablet See Rx Instructions PO TID PRN 05/09/22 muscle spasms #90 tabs pregabalin 75 mg capsule 150 mg PO BID #120 caps 05/12/22 Allergies Allergy/AdvReac Type Severity Reaction Status Date / Time hydromorphone [From Dilaudid] AdvReac Severe IV only - Verified 05/18/22 10:01 Severe bradycardia oxycodone [From Percocet] AdvReac Severe DOES NOT Verified 05/18/22 10:01 TOLERATE GENERIC estradiol AdvReac Intermediate aggression Verified 05/18/22 10:01 morphine AdvReac Intermediate Nausea Verified 05/18/22 10:01 PAIN MEDICATION SENSITIVITY AdvReac Severe Severe Uncoded 05/18/22 10:01 Bradycardia, does not tolerate generics Review of Systems Constitutional Constitutional: Denies fever(s) Gastrointestinal Gastrointestinal: Reports system reviewed and no additional complaints, except as documented Genitourinary Genitourinary: Reports system reviewed and no additional complaints, except as documented Musculoskeletal Musculoskeletal: Reports system reviewed and no additional complaints, except as documented Neurologic Neurologic: Reports system reviewed and no additional complaints, except as documented Patient History Medical History Asthma Carpal tunnel syndrome (~2018) Cervical radiculopathy Cervical somatic dysfunction Chicken pox (~1963) Chronic back pain Chronic low back pain with sciatica Chronic neck pain with history of cervical spinal surgery Chronic thoracic back pain Colon polyps (~2017) Cranial somatic dysfunction Dysphagia Esophageal abnormality Excessive cerumen in both ear canals Facet arthropathy, lumbar Fatigue Fecal incontinence alternating with constipation Former smoker GERD (gastroesophageal reflux disease) Gluten enteropathy HTN (hypertension) Hyperlipidemia, mixed Hyperthyroidism (~1977) Irritable bowel syndrome Lumbar region somatic dysfunction Migraines Numbness and tingling Peptic ulcer disease (~1976) Pneumonia Pruritus of skin Rib pain on right side Seasonal allergies Segmental and somatic dysfunction of abdomen and other regions Segmental and somatic dysfunction of rib cage Thoracic region somatic dysfunction Vaginal dryness, menopausal Vitamin D deficiency Surgical History (Updated 03/03/22 @ 11:01 by Ian Monroy DO) Anesthesia H/O: hysterectomy (~1991) History of bunionectomy of both great toes History of foot surgery History of lumbar spinal fusion (10/26/17) Hx of fusion of cervical spine Hx of laminectomy Hx of shoulder surgery S/P bilateral foot surgery Family History Mother Heart disease Other Family history non-contributory Social History household members: spouse and other Smoking Status: Former smoker Tobacco: How many years used: 30 second hand exposure: No alcohol intake: current substance use type: does not use Smoking Status: Former smoker alcohol intake frequency: 0-2 drinks per day Substance Use Type: does not use Exam Initial Vital Signs Initial Vital Signs: Vital Signs Temperature 98.3 F 05/18/22 09:58 Pulse Rate 83 05/18/22 09:58 Respiratory Rate 18 05/18/22 09:58 Blood Pressure 139/67 05/18/22 09:58 Pulse Oximetry 100 05/18/22 09:58 Oxygen Delivery Method 05/18/22 09:58 HENMT Head: normal to inspection and normocephalic Resp Effort & Inspection: normal respiratory effort Cardio Rate: regular rate GI Other: Pushing on her abdomen makes her back hurt because it is very sensitive. Neuro Gait: normal gait Extrem General: normal to inspection and capillary refill normal Course Orders Ordered: ED Orders 05/18/22 10:18 XR lumbar spine 2-3V Stat 05/18/22 11:02 MR lumbar spine wo con Stat Basic Metabolic Panel Stat Complete Blood Count AUTO DIFF Stat Discontinued Medications Hydromorphone HCl (Hydromorphone 2 Mg Tablet) 2 mg PO NOW ONE Stop: 05/18/22 10:19 Last Admin: 05/18/22 10:38 Dose: 2 mg Documented By: KIKA Vital Signs Vital signs: Vital Signs - 8 hr 05/18/22 09:58 Temperature 98.3 F Pulse Rate 83 Respiratory Rate 18 Blood Pressure 139/67 Pulse Oximetry 100 Oxygen Delivery Method Room Air MDM - Back Pain/Injury Imaging Data XR lumbar: Radiologist's Impression: [address] [address] XRay Report Signed Patient: Daisy Toledo MR#: [id number] : 1960 Acct:[id number] Age/Sex: 61 / F Date of Service: 05/18/22 Loc: ED Accession Number: [id number] ?? Procedure: XR lumbar spine 2-3V Ordering Provider: Oren Pitts D.O. PROCEDURE:? XR LUMBAR SPINE 2-3V ? INDICATIONS:? hx of fusion with increase in pain ? TECHNIQUE:? 3 views of the lumbar spine were acquired.? ? COMPARISON:? [facility], CR, XR LUMBAR SPINE MIN 4V, 02/26/2022, 13:40. ? FINDINGS:? ? Bones:? 5 [id number] vertebrae are present.? There is normal bony alignment.? No vertebral body compression fractures.? No suspicious bony lesions.? There are postoperative changes of pedicular screw and adrian fixation spanning from L3 through L5.? Discectomy and interbody disc spacers are present at this level.? The sacroiliac joints are normal.? Hardware is intact with no fracture or perihardware lucency. ? Soft tissues:? Overlying bowel gas pattern is normal.? No suspicious soft tissue calcifications.? ? ? IMPRESSION:? Postoperative changes of L3 through L5 discectomy and fusion with no radiographic complication. ? ? Dictated by: Jerry Valladares M.D. on 05/18/2022 at 9:40 ? ? Approved by: Jerry Valladares M.D. on 05/18/2022 at 9:43?? MDM Narrative Medical decision making narrative: Lumbar spine x-ray shows no acute pathology. Postvoid residual shows between 2 and 300 cc of urine which is somewhat more than I would expect. Because of this an MRI was ordered however the patient would like to hold until she sees her auto body painter on of this week. Patient was asking for oral Dilaudid at home however I informed her that this level pain medication will need to come from either her primary doctor or from her auto body painter. She was given 1 dose here in the ER. I suspect that cauda equina is unlikely based on her prior surgical history in the fact that she has had decompressions in the area. She was given return precautions. She expressed understanding agree with plan. Discharge Plan Departure Patient Disposition: Home Clinical Impression: Lower back pain, Strain of lumbar region Activity Restrictions/Additional Instructions: Keep your appointment that you have with your primary doctor and your pain management specialists that already been scheduled for the next week. Take all of your medications as directed. Return to the emergency department for any new symptoms. Prescriptions: No Action gabapentin 300 mg capsule 300 mg PO BID PRN (Reason: Pain, Moderate) Hold Instructions: Home Medication placed on hold at Doctor's office rizatriptan [Maxalt-TRANSIT BUS OPERATOR] 10 MG tablet,disintegrating 10 mg PO PRN PRN (Reason: Migraines) Qty: 0 metoprolol succinate 25 mg tablet extended release 24 hr 25 mg PO DAILY Qty: 90 1RF alendronate 35 mg tablet 35 mg PO QWEEK Qty: 12 1RF hydrochlorothiazide 12.5 mg tablet See Rx Instructions .ROUTE .COMPLEX Qty: 90 3RF Dose Instruction: Take 1 tablet (12.5 mg) by mouth daily Rx Instructions: Take 1 tablet (12.5 mg) by mouth daily gabapentin 100 mg capsule 200 mg PO TID Qty: 180 1RF Hold Instructions: Home Medication placed on hold at Doctor's office cyclobenzaprine 10 mg tablet See Rx Instructions PO TID PRN (Reason: muscle spasms) Qty: 90 11RF Rx Instructions: 1 half to 1 tablet PO three times a day PRN; pregabalin 75 mg capsule 150 mg PO BID Qty: 120 0RF Rx Instructions: Start with 75 mg twice a day and increase after 1 week to 150 mg twice a day if needed for pain relief. potassium chloride 10 mEq tablet extended release 10 meq PO DAILY acetaminophen 325 mg Tablet 650 mg PO Q6HR PRN (Reason: Pain, Mild (1-3)) Qty: 30 0RF naproxen 500 mg tablet 500 mg PO BID Qty: 60 0RF Rx Instructions: take 1 tablet by mouth twice a day duloxetine [Cymbalta] 30 mg capsule,delayed release(DR/EC) 30 mg PO DAILY MDD 2 Qty: 60 3RF Referrals: Milton Randolph DO [Primary Care Provider] -
--- NOTE | 2022-05-18 10:18 | DI.RAD.S_ITS ---
PROCEDURE: XR LUMBAR SPINE 2-3V INDICATIONS: hx of fusion with increase in pain TECHNIQUE: 3 views of the lumbar spine were acquired. COMPARISON: [facility], CR, XR LUMBAR SPINE MIN 4V, 02/26/2022, 13:40. FINDINGS: Bones: 5 [id number] vertebrae are present. There is normal bony alignment. No vertebral body compression fractures. No suspicious bony lesions. There are postoperative changes of pedicular screw and adrian fixation spanning from L3 through L5. Discectomy and interbody disc spacers are present at this level. The sacroiliac joints are normal. Hardware is intact with no fracture or perihardware lucency. Soft tissues: Overlying bowel gas pattern is normal. No suspicious soft tissue calcifications. IMPRESSION: Postoperative changes of L3 through L5 discectomy and fusion with no radiographic complication. Dictated by: Jerry Valladares M.D. on 05/18/2022 at 9:40 Approved by: Jerry Valladares M.D. on 05/18/2022 at 9:43
[2022-05-18] MEDS: HYDROMORPHONE 2 MG TABLET PO (10:38)
[2022-05-18 11:13] VITALS: BP 118/60; PULSE 71; O2SAT 98
== END 2022-05-18 11:15 | disposition home or self-care (01) ==
PROVIDERS: Emergency Provider Emergency Medicine; PCP Family Medicine
DX: S39.012A Strain of muscle, fascia and tendon of lower back, initial encounter (principal)
CPT/HCPCS: 51798; 72100; 99283

== ENCOUNTER → 2022-06-30 10:26 | Outpatient (CLI) | payer OTHER, SELFPAY ==
[2019-10-17 13:19] VITALS: BMI 21.2
[2022-06-30 12:33] LABS: COVID19 -Nasal RAPID Negative (Negative)
== END ==
PROVIDERS: PCP Family Medicine; Visit Provider Physical Medicine & Rehabilitation
DX: Z20.822 Contact with and (suspected) exposure to COVID-19 (principal)
CPT/HCPCS: 87635; C9803

== ENCOUNTER 2022-07-01 12:23 | Outpatient (CLI) | payer OTHER, SELFPAY ==
[2019-10-17 13:19] VITALS: BMI 21.2
[2022-07-01] VITALS (9 sets, daily range): BP systolic 121–156; BP diastolic 59–73; PULSE 53–70; RESP 12–24; TEMP 36.4; O2SAT 98–100
--- NOTE | 2022-07-01 12:27 | DI.RAD.S_ITS ---
PROCEDURE: PAIN L INTERLAMINAR/CAUDAL INJ INDICATIONS: SPONDYLOSIS COMPARISON: [facility], XA, PAIN L/SI FACET INJ/BLK 1STL, 03/27/2022, 15:21. [facility], CR, XR LUMBAR SPINE 2-3V, 05/18/2022, 10:10. FINDINGS: Fluoroscopic spot filming was performed to verify placement of a spinal needle at the L5-S1 level, as labeled on the films. Appropriate location of the needle tip was confirmed by injection of iodinated contrast. IMPRESSION: No significant intraprocedural abnormality. Dictated by: George Lowry M.D. on 07/01/2022 at 13:35 Approved by: George Lowry M.D. on 07/01/2022 at 13:35
[2022-07-01] MEDS: MIDAZOLAM 2 MG/2 ML VIAL IV ×2 (13:30→13:34)
[2022-07-01] MEDS: BETAMETHASONE 30 MG/5 ML MDV 6 MG INJ (13:39)
[2022-07-01] MEDS: BUPIVACAINE 0.25% (PF) VIAL 2 ML INJ (13:39)
[2022-07-01] MEDS: DEXAMETHASONE 10 MG/ML VIAL 20 MG INJ (13:39)
[2022-07-01] MEDS: IOPAMIDOL 15 ML VIAL 3 ML INJ (13:39)
--- NOTE | 2022-07-01 13:46 | P.PCN_ITS ---
Date/Time/Diagnoses Date of procedure: 07/01/22 Time of procedure: 13:46 Pre-procedure diagnosis: 1. HNP WITH RADICULAR FEATURES, 2. MULTILEVEL CENTRAL STENOSIS, Post-procedure diagnosis: same Procedure Notes Procedure: 1. FLUOROSCOPICALLY GUIDED CONTRAST CONTROLLED INTERLAMINAR EPIDURAL STEROID INJECTION - L5/S1 Indications: Daisy is referred by Dr. Randolph for treatment of Bilateral Foraminal Stenosis L>R LE symptoms. Physician: Ian Monroy Total Fluoroscopy time (seconds): 6 Total sedation minutes: 11 Complications: none Procedure in detail & Post-procedure care: FINDINGS Multilevel Central Spinal Stenosis with Nerve Root Compression DESCRIPTION OF PROCEDURE Fluoroscopically guided, contrast-controlled L5/S1 translaminar epidural steroid injection. Following review of allergy and review of potential side effects and complications, including, but not necessarily limited to, infection, allergic reaction, local tissue breakdown, temporary as well as permanent nerve injury, paralysis, stroke and possible , the patient indicated that the patient understood and agreed to proceed. An informed consent document was signed by the patient, witnessed by a nurse, and placed in the patient's chart. Additionally, other treatment options including modalities, medications, and physical therapy were reviewed with the patient. After review of previous anaesthesic history and IV conscious sedation the patient was deemed safe to proceed with today?s procedure with IV conscious sedation as ASA class II designation. Safety time-out was performed to confirm patient ID, procedure to be performed and site of procedure. IV sedation was accomplished with a combination of 4mg of Versed administered by the RN after DO order, titrated to patient comfort during the course of the procedure while the patient remained responsive to all verbal commands. In the prone position, following sterile prep and drape of the lumbar region, the L5/S1 translaminar space was identified fluoroscopically. The skin was anesthetized via a 25-gauge, 1.5-inch needle with 1% lidocaine solution. At this point, a 22-gauge short bevel spinal needle was atraumatically introduced and advanced under fluoroscopic guidance into the region of the L5/S1 translaminar space. Depth was confirmed on lateral view. Radiological data, including multiple fluoroscopic views of the lumbar spine, reveal a spinal needle at the L5/S1 translaminar space. Lateral views then show placement of the needle in the epidural space. Subsequent views show contrast material flowing superiorly and inferiorly in the epidural space. No vascular or intrathecal uptake is observed. At this point, using loss of resistance technique with saline and air, the epidural space was entered. This was confirmed following negative aspiration with injection of approximately 1.5cc of Isovue 200, showing excellent epidural flow without vascular or intrathecal uptake. At this point, 1 cc of 1% lidocain e solution combined with 3cc or 20mg of dexamethasone and 6mg of betamethasone was injected without incident. The patent tolerated the procedure without signs of symptoms of complications prior to transfer to the recovery area for further monitoring. The patient was then transferred to the recovery area where they were observed for an appropriate period of time after the injection. The patient reported a VAS score of 6 prior to the procedure and a post-procedure VAS of 0. POST OP INSTRUCTIONS The patient was provided a Pain Log to continue to record their response to the target-specific procedure prior to follow-up visit with their referring physician. Additionally, specific post-injection care instructions and a contact number to our office were provided if concerns arise regarding possible complications associated with the procedure are suspected.
--- NOTE | 2022-07-01 14:25 | PC.NURSE ---
1348-Patient arrived from procedure room bilateral legs feeling heavy and weak. 1400- patient stood at chair, bilateral legs continue to have slight heaviness, back in recliner with feet up, encouraged her to move legs 1415- stood at chair, able to take steps in place, reports she feels steady on her feet.
== END 2022-07-01 14:20 | disposition home or self-care (01) ==
LOC: RAD 12:24
PROVIDERS: PCP Family Medicine; Referring Provider Physical Medicine & Rehabilitation; Visit Provider Physical Medicine & Rehabilitation
DX: M51.17 Intervertebral disc disorders with radiculopathy, lumbosacral region (principal); M48.07 Spinal stenosis, lumbosacral region
CPT/HCPCS: 62323; 99152; J0702; J1100; J2250

== ENCOUNTER 2022-10-28 09:47 | Outpatient (CLI) | payer OTHER, SELFPAY ==
[2019-10-17 13:19] VITALS: BMI 21.2
[2022-10-28] VITALS (12 sets, daily range): BP systolic 121–137; BP diastolic 46–82; PULSE 55–63; RESP 8–20; TEMP 36.2; O2SAT 94–100
--- NOTE | 2022-10-28 09:50 | DI.RAD.S_ITS ---
PROCEDURE: PAIN SI JOINT INJECTION PAZ COMPARISON: None. INDICATIONS: SACROILIAC DISORDER FINDINGS: AP views of the sacroiliac joints demonstrate access needles in the inferior margins of the bilateral sacroiliac joints. Injection of a small amount of iodinated contrast demonstrates axis needles are within the sacroiliac joints. IMPRESSION: Access needles in the bilateral sacroiliac joints for steroid joint injection. Dictated by: Niecy Torres MD, PhD on 10/28/2022 at 13:36 Approved by: Niecy Torres MD, PhD on 10/28/2022 at 13:39
[2022-10-28] MEDS: MIDAZOLAM 2 MG/2 ML VIAL IV ×2 (11:19→11:30)
[2022-10-28] MEDS: IOPAMIDOL 15 ML VIAL 3 ML INJ (11:24)
[2022-10-28] MEDS: BETAMETHASONE 30 MG/5 ML MDV 12 MG INJ (11:24)
[2022-10-28] MEDS: BUPIVACAINE 0.5% (PF) VIAL 5 ML INJ (11:25)
[2022-10-28] MEDS: LIDOCAINE 1% (PF) 5 ML INJ (11:25)
--- NOTE | 2022-10-28 11:37 | PM.PROC.IR.1 ---
Date/Time/Diagnoses Date of procedure: 10/28/22 Time of procedure: 11:37 Pre-procedure diagnosis: Sacroiliac joint pain/DJD Post-procedure diagnosis: same Procedure Notes Procedure: Fluoroscopic guided contrast controlled bilateral sacroiliac joint injection Indications: Daisy is referred by Dr. Randolph for treatment of right sacroiliac joint DJD Physician: Ian Monroy Total Fluoroscopy time (seconds): 14 Total sedation minutes: 11 Complications: none Procedure in detail & Post-procedure care: Description of procedure Fluoroscopic guided, contrast controlled bilateral sacroiliac joint injection Following review of allergies and review of potential side effects and complications, including, but not necessarily limited to, infection, allergic reaction, local tissue breakdown, temporary as well as permanent nerve injury, paralysis, stroke and possible , the patient indicated that they understood and agreed to proceed. An informed consent was signed by the patient, witnessed by a nurse, and placed in the patient's chart. Additionally, other treatment options including modalities, medications, and physical therapy were reviewed with the patient. After review of previous anaesthesic history and IV conscious sedation the patient was deemed safe to proceed with today?s procedure with IV conscious sedation as ASA class II designation. Safety time-out was performed to confirm patient ID, procedure to be performed and site of procedure. IV sedation was accomplished with a combination of 4mg Versed were administered by the RN after DO order, titrated to patient comfort during the course of the procedure while the patient remained responsive to all verbal commands In the prone position following sterile prep and drape of the pelvic region, the hyper lucency on in the inferior aspect of the sacroiliac joint was identified fluoroscopically the skin was anesthetized be a 25 gauge 1.5 inch needle with approximately 2cc of 1% lidocaine solution. At this point, a 22 gauge 3 in spinal needle was atraumatically introduced and advanced under fluoroscopic guidance into the inferior aspect of the right sacroiliac joint. Following negative aspiration, approximately 0.3cc of Isovue-300 was injected confirming intra-articular placement without vascular uptake. Radiographic data, including multiple fluoroscopic views of the pelvis, reveals a spinal needle in the sacroiliac joint hyper lucent zone. Subsequent view show flow contrast tear superiorly and inferiorly within the joint capsule without vascular intrathecal uptake. At this point a total of 1cc of 0.5% Marcaine was combined with 1cc of 6mg of betamethasone was injected without incident. Attention was then refocused the left sacroiliac joint where the procedure was replicated. The procedure tolerated the procedure well without signs or symptoms of complications prior to transfer to the recovery area continued monitoring without incident. The patient was then transferred to the recovery area with a bur observed for an appropriate time after the injection. The patient reverted a vas score of 7 prior to the procedure and post-procedure vas of 1. Postop instructions The patient was provided with a pain like to continue to record the patient's response to the target specific procedure prior to the patient's follow-up visit with the referring physician. Additionally, specific post injection care instructions and a contact number to our office were provided if concerns arise regarding the possible complications associated with procedure are suspected.
--- NOTE | 2022-10-28 12:06 | PC.NURSE ---
Patient arrived at 1140 post injection. Awake but drowsy. VSS. Currently she is very sedated, mostly sleeping but does awake to firm touch. She had cleared the policy window for sedation monitoring but will continue to monitor her closely until she becomes more awake and alert. Pat, the patient's spouse called to update with no answer, voicemail left.
== END 2022-10-28 12:33 | disposition home or self-care (01) ==
LOC: RAD 09:48
PROVIDERS: PCP Family Medicine; Referring Provider Physical Medicine & Rehabilitation; Visit Provider Physical Medicine & Rehabilitation
DX: M53.3 Sacrococcygeal disorders, not elsewhere classified (principal); M46.1 Sacroiliitis, not elsewhere classified
CPT/HCPCS: 27096; 99152; J0702; J2250

== ENCOUNTER → 2022-12-30 09:20 | Outpatient (CLI) | payer OTHER, SELFPAY ==
[2019-10-17 13:19] VITALS: BMI 21.2
[2022-12-29 08:57] VITALS: BMI 21.2
--- NOTE | 2022-12-30 09:21 | DI.MRI.S_ITS ---
PROCEDURE: MR LUMBAR SPINE WO CON INDICATIONS: RIGHT LOWER EXTREMITY WEAKNESS L4-5 DISTRIBUTION TECHNIQUE: Noncontrast sagittal T1 spin echo and T2 fast echo, coronal T2, sagittal STIR, and T2 fast spin echo through the lumbar spine. COMPARISON: [facility], CR, L-SPINE 2-3 VIEWS, 03/11/2011, 11:59. [facility], MR, L-SPINE WITHOUT CONTRAST, 04/23/2011, 8:11. FINDINGS: Image quality: Excellent. Alignment and Curvature: 5 lumbar type vertebral bodies are present by plain film, with rudimentary ribs at T12, as before. There is mild leftward curvature of the mid lumbar spine. There is loss of normal lumbar lordosis. There is roughly 3 mm of anterolisthesis of L2 on L3. Bone Marrow: Marrow is of normal overall signal. No acute vertebral body compression fractures. Posterior fusion hardware at L3-L5 is present. Mild reactive signal throughout the endplates of the lumbar and lower thoracic spine. Spinal Cord: Conus medullaris terminates at the lower L1 level. Visualized cord demonstrates normal signal and size. Paraspinous Soft Tissues: No paravertebral masses. T12-L1: Normal appearance. L1-L2: Mild disc height loss and desiccation. Mild facet and ligamentum flavum hypertrophy. Mild epidural lipomatosis. Mild canal stenosis. Mild bilateral foraminal stenosis. No significant change. L2-L3: Mild disc height loss and desiccation. Mild diffuse disc bulge. Mild facet and ligamentum flavum hypertrophy. Mild epidural lipomatosis. Mild canal stenosis. Mild bilateral foraminal stenosis. No significant change. L3-L4: Posterior fusion. Interbody device placement. Mild bilateral facet hypertrophy. Mild canal stenosis. Mild bilateral foraminal stenosis. L4-L5: Posterior fusion. Interbody device placement. Mild bilateral facet hypertrophy. Decreased, mild canal stenosis. Moderate bilateral foraminal stenosis. L5-S1: Mild bilateral facet hypertrophy. No significant canal stenosis. Mild bilateral foraminal stenosis. No significant change. IMPRESSION: 1. Postsurgical sequelae. 2. Decreased canal and lateral recess stenosis at L4-L5. 3. Multilevel degenerative disc and facet disease, as well as ligamentum flavum hypertrophy and epidural lipomatosis. 4. Mild multilevel canal stenoses. 5. Multilevel foraminal stenoses, worst at L4-L5 where there are moderate foraminal stenoses. Dictated by: Abhi Tinoco M.D. on 12/31/2022 at 8:59 Approved by: Abhi Tinoco M.D. on 12/31/2022 at 9:02
== END ==
PROVIDERS: PCP Family Medicine; Referring Provider Physical Medicine & Rehabilitation; Visit Provider Physical Medicine & Rehabilitation
DX: M51.27 Other intervertebral disc displacement, lumbosacral region (principal); M51.36 Other intervertebral disc degeneration, lumbar region; M48.061 Spinal stenosis, lumbar region without neurogenic claudication; Z98.1 Arthrodesis status
CPT/HCPCS: 72148

== ENCOUNTER → 2023-02-18 14:10 | Outpatient (CLI) | payer OTHER, SELFPAY ==
[2022-12-29 08:57] VITALS: BMI 21.2
--- NOTE | 2023-02-18 | DI.MG.S_ITS ---
BILATERAL DIGITAL SCREENING MAMMOGRAM 3D/2D WITH CAD: 02/18/2023 CLINICAL: Routine screening. Comparison is made to exams dated: 02/10/2022 mammogram, 02/07/2021 mammogram, and 01/23/2020 mammogram - [facility]. Both breasts are extremely dense, which lowers the sensitivity of mammography (category d />75% glandular tissue). Current study was also evaluated with a Computer Aided Detection (CAD) system. There are benign vascular calcifications in both breasts. No significant masses, calcifications, or other findings are seen in either breast. There has been no significant interval change. IMPRESSION: BENIGN There is no mammographic evidence of malignancy. A 1 year screening mammogram is recommended. Based on the Tyrer Cuzick model (a risk assessment model) the patient's lifetime risk is 7.7% and her 10 year risk is 3.2%. According to the ACR, ACS, and NCCN guidelines, an annual breast MRI exam along with mammogram is recommended if the patient's lifetime risk is 20% or greater. This exam was interpreted at Station ID: [id number]. NOTE: For mammograms, a report in lay terms will be sent to the patient. Approximately 15% of breast malignancies will not be visualized mammographically. In the management of a palpable breast mass, a negative mammogram must not discourage biopsy of a clinically suspicious lesion. Electronically Signed By: Aroldo morales/lucas:02/18/2023 14:55:25 letter sent: Normal Exam ACR BI-RADS Category 2: Benign Finding(s) 3342F
== END ==
PROVIDERS: PCP Family Medicine; Referring Provider Family Medicine; Visit Provider Family Medicine
DX: Z12.31 Encounter for screening mammogram for malignant neoplasm of breast (principal)
CPT/HCPCS: 77063; 77067

== ENCOUNTER 2023-02-26 07:38 | Outpatient (CLI) | payer OTHER, SELFPAY ==
[2022-12-29 08:57] VITALS: BMI 21.2
[2023-02-26] VITALS (9 sets, daily range): BP systolic 114–156; BP diastolic 55–81; PULSE 61–67; RESP 14–38; TEMP 36; O2SAT 99–100
--- NOTE | 2023-02-26 07:41 | DI.RAD.S_ITS ---
PROCEDURE: PAIN L/S TRANSFORAMINAL INJECT INDICATIONS: SPONDYLOSIS COMPARISON: None. FINDINGS: Fluoroscopic spot filming was performed to verify placement of spinal needles at the L2-3 level(s), as labeled on the films. Appropriate location(s) of the needle tip(s) was confirmed by injection of iodinated contrast. IMPRESSION: Fluoroscopic guidance utilized for L2-3 transforaminal injections. Dictated by: Paul Rose M.D. on 02/26/2023 at 11:21 Approved by: Paul Rose M.D. on 02/26/2023 at 11:25
[2023-02-26] MEDS: MIDAZOLAM 2 MG/2 ML VIAL 4 MG IV (08:31)
[2023-02-26] MEDS: DEXAMETHASONE 10 MG/ML VIAL 20 MG INJ (08:33)
[2023-02-26] MEDS: BETAMETHASONE 30 MG/5 ML MDV 6 MG INJ (08:33)
[2023-02-26] MEDS: BUPIVACAINE 0.25% (PF) VIAL 2 ML INJ (08:34)
[2023-02-26] MEDS: IOPAMIDOL 15 ML VIAL 3 ML INJ (08:34)
--- NOTE | 2023-02-26 08:46 | P.PCN_ITS ---
Date/Time/Diagnoses Date of procedure: 02/26/23 Time of procedure: 08:46 Pre-procedure diagnosis: 1. FORAMINAL STENOSIS WITH LE SYMPTOMS Post-procedure diagnosis: same Procedure Notes Procedure: 1. FLUOROSCOPICALLY GUIDED CONTRAST CONTROLLED TRANSFORAMINAL EPIDURAL STEROID INJECTION - RIGHT L2/3TFESI Indications: Daisy is referred by Dr. Randolph for treatment of Foraminal Stenosis with right LE Symptoms Physician: Ian Monroy Total Fluoroscopy time (seconds): 6 Total sedation minutes: 12 Complications: none Procedure in detail & Post-procedure care: FINDINGS Foraminal Nerve Root Compression secondary to disc disease and facet hypertrophy DESCRIPTION OF PROCEDURE Following review of allergy and review of potential side effects and complications, including, but not necessarily limited to, infection, allergic reaction, local tissue breakdown, stroke, temporary or permanent nerve injury, paralysis, and possible , the patient indicated that the patient understood and agreed to proceed. An informed consent document was signed by the patient, witnessed by a nurse, and placed in the patient's chart. Additionally, other treatment options including medications, modalities, and physical therapy were reviewed with the patient. After review of previous anaesthesic history and IV conscious sedation the patient was deemed safe to proceed with today?s procedure with IV conscious sedation as ASA class II designation. Safety time-out was performed to confirm patient ID, procedure to be performed and site of procedure. IV sedation was accomplished with a combination of 4mg of Versed was administered by the RN after DO order, titrated to patient comfort during the course of the procedure while the patient remained responsive to all verbal commands In the prone position following sterile prep and drape of the lumbar region, the right L3/4 posterior neuroforamen was identified fluoroscopically. The skin was anesthetized via a 25-gauge 1.5-inch needle with 1% lidocaine solution. At this point, a 25-gauge 3.5-inch spinal needle was atraumatically introduced and advanced under fluoroscopic guidance through the posterior right L3/4 neuroforamen to approximately the anterior aspect of the canal. Depth was confirmed on lateral view. Following negative aspiration, injection of approximately 1.5 cc of Isovue 200 under live fluoroscopy in the AP view confir med excellent flow along the nerve root, into the epidural space without vascular or intrathecal uptake observed Radiological data, including multiple fluoroscopic views of the lumbosacral spine, reveal a spinal needle at the right L3/4 posterior neuroforamen. Subsequent views show flow of contrast material flowing superiorly and inferiorly along the nerve root confirming epidural flow. Subsequently, a test dose of 1.5 cc of 1% lidocaine solution was administered and patient was observed for two minutes for signs or symptoms of complications, including abdominal pain, shortness of breath, bilateral upper or lower extremity weakness, nausea and vomiting, prior to steroid injection. At this point, a total of 3cc or 20mg of dexamethasone and 6mg of betamethasone was injected without incident. The patient tolerated the procedure well without signs or symptoms of complications prior to transfer to the recovery area continued monitoring without incident. The patient was then transferred to the recovery area where they were observed for an appropriate time after the injection. The patient reported a VAS score of 7 prior to the procedure and a post-procedure VAS of 0. POST OP INSTRUCTIONS The patient was provided a Pain Log to continue to record their response to the target-specific procedure prior to follow-up visit with their referring physi wendi. Additionally, specific post-injection care instructions and a contact number to our office were provided if concerns arise regarding possible complications associated with the procedure are suspected.
== END 2023-02-26 09:05 | disposition home or self-care (01) ==
LOC: RAD 07:39
PROVIDERS: PCP Family Medicine; Referring Provider Physical Medicine & Rehabilitation; Visit Provider Physical Medicine & Rehabilitation
DX: M48.061 Spinal stenosis, lumbar region without neurogenic claudication (principal); M51.16 Intervertebral disc disorders with radiculopathy, lumbar region
CPT/HCPCS: 64483; 99152; J0702; J1100; J2250; J3490

== ENCOUNTER 2023-05-26 07:31 | Outpatient (CLI) | payer OTHER, SELFPAY ==
[2022-12-29 08:57] VITALS: BMI 21.2
[2023-05-26] VITALS (10 sets, daily range): BP systolic 116–151; BP diastolic 60–79; PULSE 60–70; RESP 14–22; TEMP 36.4; O2SAT 97–100
--- NOTE | 2023-05-26 07:32 | DI.RAD.S_ITS ---
PROCEDURE: PAIN L/S FACET INJ/BLK 1ST PAZ COMPARISON: None. INDICATIONS: SPONDYLOSIS FINDINGS: Fluoroscopic spot filming was performed to verify placement of spinal needles at the L2 and L3 levels bilaterally, as labeled on the films. Appropriate locations of the needle tips was confirmed by injection of iodinated contrast. Spinal fusion hardware is noted. IMPRESSION: Intraprocedural examination demonstrates appropriate needle position. Approved by: Antonio Muniz M.D. on 05/26/2023 at 16:33
[2023-05-26] MEDS: MIDAZOLAM 2 MG/2 ML VIAL 4 MG IV (08:39)
[2023-05-26] MEDS: IOPAMIDOL 15 ML VIAL 3 ML INJ (08:43)
[2023-05-26] MEDS: LIDOCAINE 2% INJ MDV 20ML 5 ML INJ (08:43)
[2023-05-26] MEDS: LIDOCAINE 1% 20 ML 5 ML INJ (08:43)
--- NOTE | 2023-05-26 08:56 | PM.PROC.IR.1 ---
Date/Time/Diagnoses Date of procedure: 05/26/23 Time of procedure: 08:56 Pre-procedure diagnosis: 1. FACET ARTHROPATHY Post-procedure diagnosis: same Procedure Notes Procedure: 1. BILATERAL L2, L3 DIAGNOSTIC MB BLOCKS Indications: Daisy is referred by Dr. Randolph for treatment of Bilateral Axial LBP. Physician: Ian Monroy Total Fluoroscopy time (seconds): 8 Total sedation minutes: 13 Complications: none Procedure in detail & Post-procedure care: DESCRIPTION OF PROCEDURE Fluoroscopically guided, contrast-controlled bilateral L2, L3 medial branch blocks with 0.5cc of 2% Lidocaine. Following review of allergy and review of potential side effects and complications, including, but not necessarily limited to, infection, allergic reaction, local tissue breakdown, nerve injury, paralysis, stroke and possible , the patient indicated that the patient understood and agreed to proceed. An informed consent document was signed by the patient, witnessed by a nurse, and placed in the patient's chart. After review of previous anaesthesic history and IV conscious sedation the patient was deemed safe to proceed with today's procedure with IV conscious sedation as ASA class II designation. Safety time-out was performed to confirm patient ID, procedure to be performed and site of procedure. IV sedation was accomplished with a combination of 4mg of Versed was administered by the RN after DO order, titrated to patient comfort during the course of the procedure while the patient remained responsive to all verbal commands In the prone position, following sterile prep and drape of the lumbar region, the right L2, L3 anatomical location of the medial branch of the dorsal ramus was identified fluoroscopically. Subsequently an anesthetic skin wheal using 1% lidocaine solution was initiated at each of the anatomical spots. Subsequently then a 22-gauge 3.5-inch spinal needle was atraumatically introduced and advanced under fluoroscopic guidance at each of the corresponding sites at the right L2,L3 MB. After negative aspiration, 0.2cc of Isovue 200 was injected, confirming placement without vascular or intrathecal uptake. Subsequently then 0.5cc of 2% Lidocaine solution was injected at each of the corresponding sites at the right L2, L3 medial branch locations. The identical procedure was replicated on the left. The patient tolerated the procedure well without signs or symptoms of complications. The patient tolerated the procedure well without signs or symptoms of complications prior to transfer to the recovery area continued monitoring without incident. Post-procedure, the patient was monitored initiating provocative activities to measure the amount of relief from block of the facetogenic pain. The patient reported a VAS of 9 prior to the procedure and a post-procedure VAS of 1. It has been a pleasure to assist in the diagnostic and therapeutic care of your patient. POST OP INSTRUCTIONS The patient was provided with a Pain Log to complete over the next several hours and subsequent days prior to the patient's follow up with the ordering physician. If the patient has natural developer relief to the solution applied, then they may be a candidate for medial branch rhizotomy. The patient is aware, was provided, once again, with a Pain Log and will follow up with the referring physician for review and clinical correlation
== END 2023-05-26 09:40 | disposition home or self-care (01) ==
LOC: RAD 07:31
PROVIDERS: PCP Family Medicine; Referring Provider Physical Medicine & Rehabilitation; Visit Provider Physical Medicine & Rehabilitation
DX: M47.816 Spondylosis without myelopathy or radiculopathy, lumbar region (principal)
CPT/HCPCS: 64493; 99152; J2250

== ENCOUNTER → 2023-06-26 11:31 | Outpatient (CLI) | payer OTHER, SELFPAY ==
[2022-12-29 08:57] VITALS: BMI 21.2
[2023-06-26 13:08] LABS: Add Manual Diff / Slide Review NO; Basophils Absolute Auto 0 /uL (0-100); Basophils Percent Auto 1.2 % (0-2); Eosinophils Absolute Auto 200 /uL (0-450); Eosinophils Percent Auto 6.3 % (2-4); Hematocrit 40.1 % (36-46); Hemoglobin 13.6 g/dL (12.0-16.0); Lymphocytes Absolute Auto 1600 /uL (1100-4500); Lymphocytes Percent Auto 45.2 % (25-40); Mean Corpuscular HGB Conc 33.9 % (30-36); Mean Corpuscular Hemoglobin 32.2 PG (26-34); Monocytes Absolute Auto 400 /uL (0-900); Monocytes Percent Auto 10.1 % (3-14); Neutrophils Absolute Auto 1300 /uL (1500-7000); Neutrophils Percent Auto 37.2 % (50-75); Platelet Count 263 X10^3/uL (150-400); Red Blood Cell Count 4.22 X10^6/uL (4.0-5.2); Red Cell Distribution Width 13.6 % (11.6-14.8); White Blood Cell Count 3.6 X10^3/uL (4.5-11.0)
[2023-06-26 13:44] LABS: Alanine Aminotransferase 24 IU/L (<35); Albumin 4.5 g/dL (3.5-5.0); Albumin Globulin Ratio 1.5 (1.0-2.8); Alkaline Phosphatase 74 U/L (38-126); Aspartate Aminotransferase 33 IU/L (14-36); BUN Creatinine Ratio 24.5 (6-22); Bilirubin Total 0.7 mg/dL (0.2-1.3); Blood Urea Nitrogen 12 mg/dL (7-17); Calcium 9.6 mg/dL (8.4-10.2); Carbon Dioxide 31 mmol/L (22-32); Chloride 98 mmol/L (98-107); Cholesterol 255 mg/dL (140-199); Estimated Glomerular Filt Rate > 60 mL/min (>60); Glucose 116 mg/dL (80-110); HDL Cholesterol 104 mg/dL (40-60); HEMOLYSIS < 15 (0-50); LDL Cholesterol Calculated 137 mg/dL (<100); Potassium 3.9 mmol/L (3.4-5.1); Sodium 137 mmol/L (137-145); Total Protein 7.5 g/dL (6.3-8.2); Triglycerides 69 mg/dL (35-150)
[2023-06-26 18:18] LABS: Microalbumi Creatinin Ratio Ur 9.8 ug/mg CR (<30); Microalbumin Urine Random 0.9 mg/dL (0-1.6)
== END ==
PROVIDERS: PCP Family Medicine; Referring Provider Family Medicine; Visit Provider Family Medicine
DX: E78.2 Mixed hyperlipidemia (principal); I10 Essential (primary) hypertension
CPT/HCPCS: 36415; 80053; 80061; 82043; 82570; 85025

== ENCOUNTER → 2023-12-28 08:50 | Outpatient (CLI) | payer OTHER, SELFPAY ==
[2022-12-29 08:57] VITALS: BMI 21.2
[2023-12-28 09:45] LABS: Add Manual Diff / Slide Review NO; Basophils Absolute Auto 100 /uL (0-100); Basophils Percent Auto 1.3 % (0-2); Eosinophils Absolute Auto 300 /uL (0-450); Eosinophils Percent Auto 7.1 % (2-4); Hematocrit 37.9 % (36-46); Hemoglobin 12.8 g/dL (12.0-16.0); Lymphocytes Absolute Auto 2200 /uL (1100-4500); Lymphocytes Percent Auto 46.6 % (25-40); Mean Corpuscular HGB Conc 33.8 % (30-36); Mean Corpuscular Hemoglobin 32.2 PG (26-34); Mean Corpuscular Volume 95.1 fL (80-100); Monocytes Absolute Auto 500 /uL (0-900); Monocytes Percent Auto 10.2 % (3-14); Neutrophils Absolute Auto 1600 /uL (1500-7000); Neutrophils Percent Auto 34.8 % (50-75); Platelet Count 264 X10^3/uL (150-400); Red Blood Cell Count 3.99 X10^6/uL (4.0-5.2); Red Cell Distribution Width 13.2 % (11.6-14.8); White Blood Cell Count 4.7 X10^3/uL (4.5-11.0)
[2023-12-28 10:44] LABS: Alanine Aminotransferase 20 IU/L (<35); Albumin 4.2 g/dL (3.5-5.0); Albumin Globulin Ratio 1.5 (1.0-2.8); Alkaline Phosphatase 58 U/L (38-126); Aspartate Aminotransferase 27 IU/L (14-36); BUN Creatinine Ratio 28.6 (6-22); Bilirubin Total 0.8 mg/dL (0.2-1.3); Blood Urea Nitrogen 18 mg/dL (7-17); Calcium 9.4 mg/dL (8.4-10.2); Carbon Dioxide 30 mmol/L (22-32); Chloride 98 mmol/L (98-107); Cholesterol 240 mg/dL (140-199); Estimated Glomerular Filt Rate > 60 mL/min (>60); Globulin 2.8 g/dL (1.7-4.1); Glucose 105 mg/dL (80-110); HDL Cholesterol 93 mg/dL (40-60); HEMOLYSIS < 15 (0-50); LDL Cholesterol Calculated 135 mg/dL (<100); Potassium 4.1 mmol/L (3.4-5.1); Sodium 137 mmol/L (137-145); Triglycerides 60 mg/dL (35-150)
[2023-12-28 11:12] LABS: Cortisol AM (Before 10AM) 25.7 ug/dL (4.46-22.7)
== END ==
PROVIDERS: PCP Family Medicine; Referring Provider Family Medicine; Visit Provider Family Medicine
DX: E78.2 Mixed hyperlipidemia (principal); I10 Essential (primary) hypertension; R63.8 Other symptoms and signs concerning food and fluid intake
CPT/HCPCS: 36415; 80053; 80061; 82533; 85025

== ENCOUNTER → 2024-03-10 11:02 | Outpatient (CLI) | payer OTHER, SELFPAY ==
[2022-12-29 08:57] VITALS: BMI 21.2
--- NOTE | 2024-03-10 11:03 | DI.MG.S_ITS ---
BILATERAL DIGITAL SCREENING MAMMOGRAM 3D/2D WITH CAD: 03/10/2024 CLINICAL: Routine screening. Comparison is made to exams dated: 02/18/2023 mammogram, 02/10/2022 mammogram, and 02/07/2021 mammogram - [facility]. Both breasts are extremely dense, which lowers the sensitivity of mammography (category d />75% glandular tissue). Current study was also evaluated with a Computer Aided Detection (CAD) system. There are benign vascular calcifications in both breasts. No significant masses, calcifications, or other findings are seen in either breast. There has been no significant interval change. IMPRESSION: BENIGN There is no mammographic evidence of malignancy. A 1 year screening mammogram is recommended. Based on the Tyrer Cuzick model (a risk assessment model) the patient's lifetime risk is 7.5% and her 10 year risk is 3.2%. According to the ACR, ACS, and NCCN guidelines, an annual breast MRI exam along with mammogram is recommended if the patient's lifetime risk is 20% or greater. This exam was interpreted at Station ID: [id number]. NOTE: For mammograms, a report in lay terms will be sent to the patient. Approximately 15% of breast malignancies will not be visualized mammographically. In the management of a palpable breast mass, a negative mammogram must not discourage biopsy of a clinically suspicious lesion. Electronically Signed By: Aroldo morales/lucas:03/10/2024 13:59:39 letter sent: Normal Exam ACR BI-RADS Category 2: Benign Finding(s) 3342F
== END ==
PROVIDERS: PCP Family Medicine; Referring Provider Family Medicine; Visit Provider Family Medicine
DX: Z12.31 Encounter for screening mammogram for malignant neoplasm of breast (principal); R92.343 Mammographic extreme density, bilateral breasts
CPT/HCPCS: 77063; 77067

== ENCOUNTER → 2024-04-06 11:58 | Outpatient (CLI) | payer OTHER, SELFPAY ==
[2022-12-29 08:57] VITALS: BMI 21.2
== END ==
PROVIDERS: PCP Family Medicine; Referring Provider Family Medicine; Visit Provider Family Medicine
DX: R79.89 Other specified abnormal findings of blood chemistry (principal); R63.5 Abnormal weight gain; R63.8 Other symptoms and signs concerning food and fluid intake
CPT/HCPCS: 36415; 84443

== ENCOUNTER → 2024-04-07 09:41 | Outpatient (CLI) | payer OTHER, SELFPAY ==
[2022-12-29 08:57] VITALS: BMI 21.2
[2024-04-08 07:16] LABS: Adrenocorticotropic Hormone 15.7 pg/mL (7.2-63.3)
== END ==
PROVIDERS: PCP Family Medicine; Referring Provider Family Medicine; Visit Provider Family Medicine
DX: R79.89 Other specified abnormal findings of blood chemistry (principal); R63.5 Abnormal weight gain; R63.8 Other symptoms and signs concerning food and fluid intake
CPT/HCPCS: 82024

== ENCOUNTER → 2024-05-23 16:38 | Outpatient (CLI) | payer MEDICARE, OTHER, SELFPAY ==
[2022-12-29 08:57] VITALS: BMI 21.2
[2024-05-23 17:59] LABS: Appearance Urine UA CLEAR; Bilirubin Urine UA NEGATIVE (NEGATIVE); Color Urine UA YELLOW; Glucose Urine UA NEGATIVE (Negative); Ketones Urine UA TRACE (NEGATIVE); Leukocyte Esterase Urine UA NEGATIVE (NEGATIVE); Nitrite Urine UA NEGATIVE (Negative); Occult Blood Urine UA NEGATIVE (Negative); Protein Urine UA NEGATIVE (Negative); Specific Gravity Urine UA <=1.005 (1.000-1.035); Urobilinogen Urine UA 0.2 E.U./dL (0.2)
[2024-05-23 18:33] LABS: pH Urine UA 5.5 (4.5-8.0)
[2024-05-23 18:40] LABS: Bacteria Urine None Seen; Culture Indicated Urine Cult Not Indicated; RBC Urine None Seen (0-5/HPF); Squamous Epithelial Cell Urine 0-1 /HPF (0-5/HPF); Urine Volume 10mL (spun); WBC Urine None Seen (0-5/HPF)
== END ==
PROVIDERS: PCP Family Medicine; Referring Provider Anesthesiology Pain Medicine; Visit Provider Anesthesiology Pain Medicine
DX: Z01.812 Encounter for preprocedural laboratory examination (principal)
CPT/HCPCS: 81001

== ENCOUNTER → 2024-12-20 10:33 | Outpatient (CLI) | payer MEDICARE, OTHER, SELFPAY ==
[2022-12-29 08:57] VITALS: BMI 21.2
--- NOTE | 2024-12-20 15:24 | ST.SWALLOW ---
Visit Care Team Role Provider Type Curly Randolph DO Primary Care Provider Physician Specialty: Family Practice Address: [address] [place] [address], [id number] Email: Oren Gaviria MD Attending Provider Physician Referring Provider Specialty: Otolaryngology (ENT) Address: [facility] [place], [address] Email: [email or web address] Modified Barium Swallow Study SURGICAL SERVICES COORDINATOR Modified Barium Swallow Study Start: 12/20/24 14:06 Freq: Status: Active Protocol: Document 12/20/24 14:30 LNK (Rec: 12/20/24 15:16 LNK [id number]) Modified Barium Swallow Study Total Time Visit Start Time 11:00 Visit Stop Time 11:[address] Murphy ENT Reason for Referral dysphagia Setting Setting Outpatient Care Patient Information Identification Type Name,Date of Patient History Pt was seen for a Modified barium Swallow Study with c/o difficulty swallowing solid foods and pills. Liquids do not seem to be a problem for the pt on a regular basis. Pt underwent ACDF surgery 5 years ago and has experienced difficulty with swallowing since then. Pt describes a shelf in her mid throat that blocks the foods from going in her stomach. Specifically, the pt has difficulty with dry foods such as chicken, hard boiled eggs, etc. Pt recently was prescribed medication for GERD which she noted that some of her swallow difficulty has improved. Pt is scheduled for sleep study at the end of January 2025. In December 2021, an MBSS was completed at with the results noting mild pharyngeal phase dysphagia. Subjective Observations Pt was seated in the fluoroscopy chair with directions and procedures described. She indicated she understood Patient Positioning Position View Lat-A/P Imaging Lateral View Textures Administered Trials Presented Thin Liquid via Spoon (IDDSI 0 ),Thin Liquid via Cup (IDDSI 0 ),Extremely Thick Liquid via Spoon (IDDSI 4),Regular (IDDSI 7) Barium Tablet Yes The IDDSI Framework Protocol: IDDSI.1 Oral Impairment Source: The Modified Barium Swallow Impairment Profile (MBSImP??) Lip Closure No labial escape Tongue Control During Bolus Hold Cohesive bolus between tongue to palatal seal Bolus Preparation/Mastication Timely & efficient chewing & mashing Bolus Transport/Lingual Motion Brisk tongue motion Oral Residue Complete oral clearance,Trace residue lining oral structures Location Tongue Initiation of Pharyngeal Swallow Bolus head in valleculae Additional Oral Impairment Observations *OME and DKS were observed to be WNL. *Dentition natural and in good hygiene *Mastication observed with rotary chew pattern. *Good bolus formation, control and AP transition. *Oral phase of swallow observed to be WNL Pharyngeal Impairment Source: The Modified Barium Swallow Impairment Profile (MBSImP??) Soft Palate Elevation No bolus between soft palate & pharyngeal wall Laryngeal Elevation Part.sup.move.thyroid cart/ part.approx.arytenoids to epiglot.petiole Anterior Hyoid Excursion Partial anterior movement Epiglottic Movement Partial inversion Laryngeal Vestibular Closure Complete; no air/contrast in laryngeal vestibule Pharyngeal Stripping Wave Absent Pharyngoesophageal Segment Opening Complete distention & complete duration; no obstruction of flow Tongue Base Retraction Narrow column of contrast/air betwn tongue base & post. pharyngeal wall Pharyngeal Residue Trace residue within/on pharyngeal structures Additional Pharyngeal Impairment *Mildly weak base of tongue Observations retraction strength *Reduced hyolaryngeal elevation and movement *Inconsistent inversion of epiglottis. *At the height of swallows, the epiglottis tip, at times was curved against the posterior pharyngeal wall at the top of the ACDF hardware *With large bolus sizes, the epiglottis inverted completely *Liquids were noted to have less residual in the valeculla than solids *Solid trials needed 2-3 swallows in order to clear. *Posterior wall contractions/ striping was noted to be minimal, affecting bolus control (possible a result of the ACDF surgery). A/P View Textures Administered Trials Presented Thin Liquid via Spoon (IDDSI 0 ),Thin Liquid via Cup (IDDSI 0 ),Extremely Thick Liquid via Cup (IDDSI 4),Regular (IDDSI 7 ) The IDDSI Framework Protocol: IDDSI.1 A/P View Observations Pharyngeal Contraction Complete Esophageal Clearance Upright Position Esophageal retention w/ regtrograde flow below pharyngoesoph segment Vocal Fold Function Good Esophageal Function Slowed Clearing,Reverse Peristalsis Additional A-P Observations *Esophageal retention of contrast was observed at mid chest level *Additional water swallows cleared contrast material *Calibrated barium tablet cleared the esophagus in a timely manner Clinical Impressions Findings Mild pharyngeal phase dysphagia. Inconsistent epiglottal inversion may result in pt's c/o of a shelf in her throat that restricts bolus flow. Reduced hyolaryngeal elevation and lack of posterior pharyngeal wall stripping was observed, likely related to ACDF surgery The results today were compared to those of 01/02/22. There did not appear to be a significant change since 2021. At that time referral to ST was recommended for base of tongue exercises. Pt did not follow up on that recommendation. ST continues to be a viable therapy to improve base of tongue retraction strength. These exercises improve hyolaryngeal elevation and may improve epiglottal inversion. Rehabilitation Potential Good Patient Appropriate for Therapy Yes Recommendations Diet Comments No diet change is recommended at this time Aspiration Precautions Recommended Precautions Alternate Liquids/Solids,Small Bites/Sips Treatment Plan Therapy Recommendations Outpatient Speech Therapy,Base of Tongue Exercises Therapy Strategy Recommendations Small Bites and Sips,Alternate Liquids/Solids
== END ==
PROVIDERS: PCP Family Medicine; Referring Provider Otolaryngology; Visit Provider Otolaryngology
DX: R13.10 Dysphagia, unspecified (principal)
CPT/HCPCS: 74230; 92611

== ENCOUNTER → 2025-04-20 09:11 | Outpatient (CLI) | payer MEDICARE, OTHER, SELFPAY ==
[2022-12-29 08:57] VITALS: BMI 21.2
--- NOTE | 2025-04-20 09:12 | DI.MG.S_ITS ---
MM screening mammo BI: 04/20/2025. BI-RADS: 1 CLINICAL: 64-year old female for bilateral screening mammogram. Tyrer-Cuzick lifetime risk of 2.7%. No personal or first-degree family history of breast cancer. PRIOR EXAMS 03/10/2024, 02/18/2023, 02/10/2022, 02/07/2021, 01/23/2020, 01/12/2019, 01/06/2019, 12/04/2017, 11/11/2016, 11/05/2015. MAMMOGRAPHY TECHNIQUE: 2D and 3D (tomosynthesis) digital mammographic views obtained, with additional images as needed for full coverage. Current study was also evaluated with a Computer Aided Detection (CAD) system. DENSITY C. The breasts are heterogeneously dense, which may obscure small masses. MAMMOGRAPHY FINDINGS Bilateral: No suspicious mass, asymmetry, microcalcification, or other abnormality seen. IMPRESSION: * No evidence of malignancy. RECOMMENDATIONS Bilateral * Annual screening mammography. OVERALL ASSESSMENT CATEGORY BI-RADS-1: Negative. The [employer] recommends annual screening mammography beginning at age 40 for women with average risk of breast cancer. ELECTRONICALLY SIGNED: Belkys Del Cid M.D. on 04/23/2025 at 01:44:26 PM PT Interpreting Station ID: [id number]
== END ==
PROVIDERS: PCP Family Medicine; Referring Provider Family Medicine; Visit Provider Family Medicine
DX: Z12.31 Encounter for screening mammogram for malignant neoplasm of breast (principal); R92.343 Mammographic extreme density, bilateral breasts
CPT/HCPCS: 77063; 77067

== ENCOUNTER 2025-04-23 21:40 | Emergency (ER) | payer MEDICARE, OTHER, SELFPAY ==
[2022-12-29 08:57] VITALS: BMI 21.2
[2025-04-23 21:52] VITALS: BP 131/60; PULSE 64; RESP 16; TEMP 37.1; O2SAT 99; BMI 21.2
--- NOTE | 2025-04-23 23:12 | PC.NURSE ---
When I roomed patient. Pt complaining of unable to remove ring from finger r/t swelling. Able to remove ring from 4th finger with lubricant.
--- NOTE | 2025-04-23 23:15 | ED_ITS ---
HPI - Extremity Problem General Chief complaint: Extremity Problem,Nontraumatic Stated complaint: bee string yesterday getting worse Time Seen by Provider: 04/23/25 22:40 Source: patient Mode of arrival: Ambulatory History of Present Illness HPI Narrative: 64-year-old female with history of known bee sting allergy, at sting to her left dorsal middle finger, now has redness to the adjacent 4th finger into the top of the hand. No fevers or chills. No nausea or vomiting diarrhea or abdominal cramping. No swelling to lips tongue eyelids face. No sensation of throat tightening. No shortness of breath or chest pain. Related Data Home Medications ?Medication ?Instructions ?Recorded ?Confirmed hydromorphone 2 mg tablet 2 mg PO .PRN Extreme pain fo r the 08/30/24 10/21/24 back methocarbamol 500 mg tablet 500 mg PO TID PRN 10/21/24 10/21/24 ubrogepant 50 mg tablet (Ubrelvy) 50 mg PO ONCE PRN Mi graine 10/21/24 10/21/24 Previous Rx's ?Medication ?Instructions ?Recorded acetaminophen 325 mg tablet 650 mg (2 x 325 mg) PO Q6H R PRN 12/10/18 Pain, Mild (1-3) #30 tabs naproxen 500 mg tablet 500 mg PO BID inflammation # 60 tabs 10/19/19 Held on 02/11/23. Instructions: Home Medication placed on hold at Doctor's office cyclobenzaprine 10 mg tablet 10 mg PO 3XD for muscle s pasm #90 08/17/23 Held on 10/28/23. tabs Instructions: Home Medication placed on hold at Doctor's office alendronate 35 mg tablet 35 mg PO QWEEK #12 tabs 08/16 04/08 hydrochlorothiazide 12.5 mg tablet See Rx Instructions .Route 08/30/24 .COMPLEX #90 tabs metoprolol succinate 25 mg 25 mg PO DAILY #90 tabs tablet,extended release 24 hr potassium chloride 10 mEq 10 meq PO DAILY #90 tabs tablet,extended release pramipexole 0.125 mg tablet 0.375 mg (3 x 0.125 mg) PO DAILY 08/30/24 #270 tabs omeprazole 40 mg capsule,delayed 40 mg PO DAILY #90 ca ps 01/27/25 release cephalexin 500 mg capsule 500 mg PO QID 7 days #28 cap s 04/23/25 epinephrine 0.3 mg/0.3 mL 0.3 mg (0.3 mL) IM Q5-15M DE N 04/23/25 injection, auto-injector (EpiPen anaphylaxis #2 ea 2-Joselito) prednisone 20 mg tablet 40 mg (2 x 20 mg) PO DAILY 5 days 04/23/25 #10 tabs Allergies Allergy/AdvReac Type Severity Reaction Status Date / Time hydromorphone (From Dilaudid) AdvReac Severe IV only - Verified 04/23/25 21:52 Severe bradycardia oxycodone (From Percocet) AdvReac Severe DOES NOT Verified 04/23/25 21:52 TOLERATE GENERIC estradiol AdvReac Intermediate aggression Verified 04/23/25 21:52 morphine AdvReac Intermediate Nausea Verified 04/23/25 21:52 PAIN MEDICATION SENSITIVITY AdvReac Severe Severe Uncoded 04/23/25 21:52 Bradycardia, does not tolerate generics Patient History Medical History (Updated 04/23/25 @ 23:25 by Kenrick Saini MD) Trigger finger, right middle finger Apneic episode Abnormal weight gain Salt craving Chronic GERD Burning mouth syndrome Herniated nucleus pulposus, L2-3 right Sacral dysfunction Herniated nucleus pulposus, L5-S1, right Esophageal abnormality Facet arthropathy, lumbar Dysphagia Rib pain on right side Chronic thoracic back pain Lumbar region somatic dysfunction Fatigue Excessive cerumen in both ear canals Vaginal dryness, menopausal Segmental and somatic dysfunction of abdomen and other regions Segmental and somatic dysfunction of rib cage Thoracic region somatic dysfunction Cervical somatic dysfunction Cranial somatic dysfunction Cervical radiculopathy Chronic neck pain with history of cervical spinal surgery Vitamin D deficiency Chronic low back pain with sciatica Pruritus of skin HTN (hypertension) Hyperlipidemia, mixed Seasonal allergies Chronic back pain Carpal tunnel syndrome (~2018) Chicken pox (~1963) Peptic ulcer disease (~1976) Irritable bowel syndrome Gluten enteropathy GERD (gastroesophageal reflux disease) Colon polyps (~2017) Hyperthyroidism (~1977) Fecal incontinence alternating with constipation Pneumonia Asthma Former smoker Numbness and tingling Migraines Surgical History Hx of fusion of cervical spine Anesthesia History of foot surgery H/O: hysterectomy (~1991) Hx of shoulder surgery S/P bilateral foot surgery History of bunionectomy of both great toes Hx of laminectomy History of lumbar spinal fusion (10/26/17) Family History Mother Heart disease Other Family history non-contributory Social History household members: spouse and other Smoking Status: Former smoker Tobacco: How many years used: 30 second hand exposure: No alcohol intake: current substance use type: does not use Smoking Status: Former smoker alcohol intake frequency: 0-2 drinks per day Exam Narrative Exam Narrative: GENERAL: Well-developed patient, in mild distress. HEAD: Atraumatic. Normocephalic. EYES: Pupils equal round and reactive. Extraocular motions intact. No scleral icterus. No injection or drainage. ENT: Nose without bleeding, purulent drainage. Throat without erythema, tonsillar hypertrophy or exudate. Airway patent. NECK: Trachea midline. Non tender CARDIOVASCULAR: Regular rate and rhythm without murmurs, gallops, or rubs. RESPIRATORY: Clear to auscultation. Breath sounds equal bilaterally. No wheezes, rales, or rhonchi. GASTROINTESTINAL: Abdomen soft, non-tender, nondistended. EXTREMITIES: Erythema with some swelling left 3rd finger, edema extending to the dorsal hand and adjacent for finger. He was able to have her ring removed without cutting from her 4th finger. She can fully extend her fingers and clenched fist closed. BACK: Nontender without deformity or crepitance. No flank tenderness. NEURO: AOx3. Motor functions grossly nonfocal. SKIN: No rash or erythema of visible areas Initial Vital Signs Initial Vital Signs: Vital Signs Temperature 98.8 F 04/23/25 21:52 Pulse Rate 64 04/23/25 21:52 Respiratory Rate 16 04/23/25 21:52 Blood Pressure 131/60 04/23/25 21:52 Pulse Oximetry 99 04/23/25 21:52 Oxygen Delivery Method Room Air 04/23/25 21:52 Course Orders Ordered: Discontinued Medications Cephalexin HCl (Cephalexin 250 Mg Capsule) 500 mg PO NOW ONE Stop: 04/23/25 23:16 Last Admin: 04/23/25 23:38 Dose: 500 mg Documented By: CATHY Dexamethasone (Dexamethasone 10 Mg/Ml Vial) 10 mg IM NOW ONE Stop: 04/23/25 23:15 Last Admin: 04/23/25 23:38 Dose: 10 mg Documented By: CATHY Diphenhydramine HCl (Diphenhydramine 25 Mg Tablet) 50 mg PO NOW ONE Stop: 04/23/25 23:28 Last Admin: 04/23/25 23:38 Dose: 50 mg Documented By: CATHY Vital Signs Vital signs: Vital Signs - 8 hr 04/23/25 21:52 04/23/25 23:45 Temperature 98.8 F Pulse Rate 64 67 Respiratory Rate 16 18 Blood Pressure 131/60 131/76 Pulse Oximetry 99 97 Oxygen Delivery Method Room Air Room Air MDM - Extremity (Nontraumatic) MDM Narrative Medical decision making narrative: Bee sting erythema left 3rd finger with swelling and redness to the hand in adjacent finger. Likely envenomation reaction, consider injection bacteria in cellulitis given expansion of redness and swelling 2nd day. Oral prednisone steroid, dose given now and prescription sent to her pharmacy. Oral dose antibiotic cephalexin, dose given now, prescription sent to her pharmacy. Take antibiotic and steroid as directed. Recheck symptoms advised next 2 days with regular provider or here in emergency department. Discharged home. Return precautions discussed. Discharge Plan Departure Patient Disposition: Home Clinical Impression: Bee sting, Cellulitis of hand Instructions: DI for Cellulitis -- Adult Activity Restrictions/Additional Instructions: Bee sting to the ring finger yesterday, now with swelling over the dorsal hand and adjacent 4th finger. No trouble breathing or swelling of the throat. Envenomation was yesterday, swelling can be due to envenomation only. But swelling and increasing pain in the next day concerning for possible spreading infection. First dose antibiotic cephalexin given, prescription sent to your pharmacy. Steroid dose given by mouth, prednisone steroid prescription sent to your pharmacy. Take [id number] Benadryl 25 mg by mouth 4 times daily as well. Recheck in 2 days with your regular doctor. Return earlier to this/[facility] emergency department for any change worsening symptoms or any concerns prior. History of bee sting allergy. Epinephrine autoinjector kit also sent as prescription to your pharmacy to use if needed, she had you have bee sting and severe respiratory airway symptoms and are remote from care. Prescriptions: New epinephrine [EpiPen 2-Joselito] 0.3 mg/0.3 mL auto-injector 0.3 mg IM Q5-15M PRN (Reason: anaphylaxis) Qty: 2 0RF Rx Instructions: do not exceed 3 doses per episode prednisone 20 mg tablet 40 mg PO DAILY 5 Days Qty: 10 0RF cephalexin 500 mg capsule 500 mg PO QID 7 Days Qty: 28 0RF No Action cyclobenzaprine 10 mg tablet 10 mg PO 3XD Qty: 90 1RF omeprazole 40 mg capsule,delayed release(DR/EC) 40 mg PO DAILY Qty: 90 3RF hydromorphone 2 mg tablet 2 mg PO .PRN Patient Comments: As needed for pain pramipexole 0.125 mg tablet 0.375 mg PO DAILY Qty: 270 3RF alendronate 35 mg tablet 35 mg PO QWEEK Qty: 12 1RF hydrochlorothiazide 12.5 mg tablet See Rx Instructions .ROUTE .COMPLEX Qty: 90 3RF Dose Instruction: Take 1 tablet (12.5 mg) by mouth daily Rx Instructions: Take 1 tablet (12.5 mg) by mouth daily- NEEDS TO BE SEEN FOR REFILLs metoprolol succinate 25 mg tablet extended release 24 hr 25 mg PO DAILY Qty: 90 3RF potassium chloride 10 mEq tablet extended release 10 meq PO DAILY Qty: 90 3RF methocarbamol 500 mg tablet 500 mg PO TID PRN Ubrelvy 50 mg tablet 50 mg PO ONCE PRN (Reason: Migraine) Rx Instructions: as a single dose; may repeat once in >=2 hours after first dose if needed. The max in 24 hour period is 100 mg. acetaminophen 325 mg Tablet 650 mg PO Q6HR PRN (Reason: Pain, Mild (1-3)) Qty: 30 0RF naproxen 500 mg tablet 500 mg PO BID Qty: 60 0RF Rx Instructions: take 1 tablet by mouth twice a day Referrals: Curly Randolph DO [Primary Care Provider, Family Practice] Stand Alone Forms: Patient Portal/API
[2025-04-23] MEDS: cephALEXin 250 MG CAPSULE 500 MG PO (23:38)
[2025-04-23] MEDS: DEXAMETHASONE 10 MG/ML VIAL IM (23:38)
[2025-04-23] MEDS: diphenhydrAMINE 25 MG TABLET 50 MG PO (23:38)
[2025-04-23 23:45] VITALS: BP 131/76; PULSE 67; RESP 18; O2SAT 97
== END 2025-04-23 23:45 | disposition home or self-care (01) ==
PROVIDERS: Emergency Provider Emergency Medicine; PCP Family Medicine
DX: L03.114 Cellulitis of left upper limb (principal); T63.441A Toxic effect of venom of bees, accidental (unintentional), initial encounter; Y93.9 Activity, unspecified
CPT/HCPCS: 96372; 99283; 99284; J1100

== ENCOUNTER → 2025-10-01 07:10 | Outpatient (CLI) | payer MEDICARE, OTHER, SELFPAY ==
[2022-12-29 08:57] VITALS: BMI 21.2
--- NOTE | 2025-10-01 07:11 | DI.MRI.S_ITS ---
PROCEDURE: MR CERVICAL SPINE WO CON INDICATIONS: Persistent neck pain; [place] TECHNIQUE: Noncontrast sagittal T1 spin echo and T2 fast spin echo, sagittal STIR, foraminal oblique sagittal T2 fast spin echo, and axial gradient echo or T2 fast spin echo through the cervical spine. COMPARISON: [facility], MR, MR CERVICAL SPINE WITHOUT CONTRAST, 07/07/2019, 9:44. FINDINGS: Image quality: Excellent. Alignment and Curvature: There is normal bony alignment. Bone Marrow: C3 through C6 ACDF hardware in place. Marrow demonstrates normal overall signal. Spinal Cord: Visualized spinal cord has normal size and signal. No cerebellar tonsillar herniation. Paraspinous Soft Tissues: No paravertebral masses. Prevertebral soft tissues are normal in thickness. C2-C3: No significant central canal or neural foraminal stenosis.. C3-C4: Postoperative changes. No central canal stenosis. No significant neural foraminal stenosis. C4-C5: Postoperative changes. No significant central canal stenosis. Mild right and no left neural foraminal stenosis. C5-C6: Postoperative changes. No significant central canal stenosis. Mild right and moderate left neural foraminal stenosis. C6-C7: Disc desiccation and mild posterior disc osteophyte complex. Facet and uncovertebral arthropathy. Mild central canal stenosis. At least moderate right and mild left neural foraminal stenosis peer C7-T1: No central canal or neural foraminal stenosis. IMPRESSION: 1. Multilevel degenerative changes of the cervical spine status post C3 through C6 ACDF. 2. Mild central canal stenosis at C6-C7. 3. Moderate neural foraminal stenosis on the left at C5-C6 and right at C6-C7. Dictated by: Samuel Vizcaino M.D. on 10/02/2025 at 14:56 Approved by: Samuel Vizcaino M.D. on 10/02/2025 at 15:01
== END ==
LOC: MRI 07:10
PROVIDERS: PCP Family Medicine; Referring Provider Family Medicine; Visit Provider Physician Assistant
DX: M48.02 Spinal stenosis, cervical region (principal); M47.22 Other spondylosis with radiculopathy, cervical region; M99.01 Segmental and somatic dysfunction of cervical region; M54.2 Cervicalgia; G89.28 Other chronic postprocedural pain; Z98.890 Other specified postprocedural states; Z98.1 Arthrodesis status
CPT/HCPCS: 72141